=== PATIENT | male | born 1955 | race African-American/Black ===

== ENCOUNTER 2018-09-21 14:33 | Inpatient (IN) | payer OTHER ==
[~2018-09-21] VITALS: Ht 185.4 cm; Wt 91.3 kg
[~2018-09-21 14:33] MED LIST: AMOX-291 PO; ASPI-515 PO; Amlodipine Besylate PO; FAMO20TA7 PO; HYDR-3240 PO; LISI-170 PO; OXYC-302 PO
--- NOTE | 2018-09-21 14:44 | NUR ---
12 lead EKG in progress. Connected to cardiac nurse specialist. Pt in hospital gown.
--- NOTE | 2018-09-21 14:44 | NUR ---
pt is also complaining of "spontaneous laceration around the scrotal area"; 250 ml fluids administered by [facility]
--- NOTE | 2018-09-21 14:58 | NUR ---
DR VELÁZQUEZ BS FOR EXAM. OPEN SORES TO ANTERIOR TESTICLE, THREE LESIONS ACROSS LT UPPER ABD, PEDAL EDEMA BILAT, RT PEDAL PULSE STRONG & REG, LT PEDAL PULSE DIMINISHED, FEET DIRTY & ODOROUS - LAST WASHED "ABOUT A WEEK AGO". PT STATES HE HAS "NEW" BOOTS AND WAS TOLD TO WEAR THEM BAREFOOTED. MONITOR: SINUS TACH. EMS IV 18G RAC. PT A&OX3, RESP EVEN & UNLABORED, SPEECH CLEAR (MISSING FRONT TEETH UPPER & LOWER JAW), SKIN W/D.
[2018-09-21] MEDS ORDERED: MORPHINE SULFATE 4 MG/ML, 1ML IVPush PRN (15:00)
[2018-09-21] MEDS ORDERED: PIPERACILLIN/TAZO/PMX 3.375GM 50 ML IVPB ONE (15:00)
[2018-09-21] MEDS ORDERED: KETOROLAC 30 MG/1 ML IVPush ONE (15:00)
[2018-09-21] MEDS ORDERED: ACETAMINOPHEN 500 MG TABLET PO ONE (15:00)
[2018-09-21] MEDS ORDERED: ONDANSETRON 2MG/ML, 2ML IVPush ONE (15:00)
[2018-09-21] MEDS ORDERED: SODIUM CHLORIDE 0.9% 1,000ML IVBOLUS ONE (15:00)
[2018-09-21] MEDS ORDERED: ONDANSETRON 2MG/ML, 2ML ONE (15:13)
[2018-09-21] MEDS ORDERED: KETOROLAC 30 MG/1 ML ONE (15:13)
[2018-09-21] MEDS ORDERED: PIPERACILLIN/TAZO/PMX 3.375GM 50 ML ONE (15:13)
[2018-09-21] MEDS ORDERED: MORPHINE SULFATE 4 MG/ML, 1ML ONE (15:14)
[2018-09-21] MEDS ORDERED: ACETAMINOPHEN 500 MG TABLET ONE (15:14)
--- NOTE | 2018-09-21 15:32 | NUR ---
LABS, INCLUDING BLD CX SET X 2, DRAWN; BLD CX BAND ON WRIST.
[2018-09-21 15:37] LABS: BASOPHILS # (AUTO) 0.01 x10^3/uL (0-0.1); BASOPHILS % (AUTO) 0 % (0-1); EOSINOPHILS % (AUTO) 0 % (1-7); LYMPHOCYTES # (AUTO) 0.78 x10^3/uL (1-3.4); LYMPHOCYTES % (AUTO) 6 % (22-44); MD NO; MEAN CORPUSCULAR HEMOGLOBIN 30.4 pg (27.5-34.5); MEAN CORPUSCULAR HGB CONC 33.6 g/dL (33.2-36.2); MEAN CORPUSCULAR VOLUME 90.3 fL (81-97); MEAN PLATELET VOLUME 7.9 fL (7.4-10.4); MONOCYTES % (AUTO) 8 % (2-9); NEUTROPHILS # (AUTO) 12.06 x10^3/uL (1.8-6.8); NEUTROPHILS % (AUTO) 87 % (42-75); PLATELET COUNT 143 x10^3/uL (130-400); RED BLOOD COUNT 3.79 x10^6/uL (4.38-5.82); RED CELL DISTRIBUTION WIDTH 15.8 % (9.4-14.8)
--- NOTE | 2018-09-21 15:45 | NUR ---
PT NOTIFIED OF NEED FOR URINE SPECIMEN; URINAL PROVIDED. ZOSYN INFUSING VIA PUMP AT 100ML/HR PER EMAR; NS BOLUS INFUSING W-O; IV SITE PATENT. PT SITTING QUIETLY ON BED W/ SIDE RAILS UP X 2, CALL LIGHT W/IN REACH.
[2018-09-21 15:48] LABS: ALANINE AMINOTRANSFERASE 16 U/L (12-78); ALBUMIN 2.9 g/dL (3.4-5.0); ANION GAP 8 mmol/L (5-15); CALCIUM 8.9 mg/dL (8.5-10.1); CHLORIDE 105 mmol/L (98-107); CREATININE 1.03 mg/dL (0.7-1.3)
[2018-09-21 15:52] LABS: ALKALINE PHOSPHATASE 88 U/L (45-117); BILIRUBIN,TOTAL 0.8 mg/dL (0.2-1.0); TOTAL PROTEIN 8.1 g/dL (6.4-8.2)
--- NOTE | 2018-09-21 16:19 | NUR ---
FIRST NS 100ML INFUSED; 2ND LITER HUNG, INFUSING W-O; IV SITE PATENT. PT RESTING QUIETLY, MONITORING CONTINUES: SINUS TACH AT 115
[2018-09-21] MEDS ORDERED: SODIUM CHLORIDE 0.9% 1,000 ML IV ONE (16:29)
[2018-09-21] MEDS ORDERED: SODIUM CHLORIDE FLUSH 10ML SYR IVF PRN (16:30)
[2018-09-21 16:32] LABS: MICROSCOPIC INDICATED
[2018-09-21 16:48] LABS: CULTURE INDICATED? NO
[2018-09-21 16:59] LABS: RAPID INFLUENZA A Negative (Negative); RAPID INFLUENZA B Negative (Negative)
[2018-09-21] MEDS ORDERED: ONDANSETRON ODT 4 MG PO PRN (17:00)
[2018-09-21] MEDS ORDERED: LABETALOL 5MG/ML, 20ML IV PRN (17:00)
[2018-09-21] MEDS ORDERED: ONDANSETRON 2MG/ML, 2ML IVPush PRN (17:00)
[2018-09-21] MEDS ORDERED: VANCOMYCIN PER PHARMACY MC PRN (17:00)
[2018-09-21] MEDS ORDERED: POLYETHYLENE GLYCOL 17 GM PACKET PO PRN (17:00)
[2018-09-21 17:18] LABS: FREE T4 (FREE THYROXINE) 1.42 ng/dL (0.76-1.46)
[2018-09-21 17:22] LABS: HCT (SEDRATE) 34.3 % (39.2-51.8)
--- NOTE | 2018-09-21 17:36 | NUR ---
PT REPORT TO PARISH MARTIN FOR ROOM 528
[2018-09-21] MEDS ORDERED: PHARMACOKINETIC CONSULTATION MC ONE (18:00)
[2018-09-21] MEDS ORDERED: PIPERACILLIN/TAZO/PMX 3.375GM 50 ML IV SCH ×2 (18:00→22:00)
[2018-09-21] MEDS ORDERED: PHARMACOKINETIC MONITORING MC PRN (18:00)
[2018-09-21] MEDS: SODIUM CHLORIDE 0.9% 1,000 ML IV SCH (18:41)
[2018-09-21 18:42] VITALS: BP 144/75
[2018-09-21] MEDS: VANCOMYCIN 1,500 MG in SODIUM CHLORIDE 0.9% 250 ML IV SCH (18:42)
[2018-09-21 20:50] VITALS: BP 157/78
[2018-09-21] MEDS: PIPERACILLIN/TAZO 3.375 GM in DEXTROSE 5% 50 ML IV SCH (22:41)
[2018-09-21 22:48] LABS: MICROSCOPIC INDICATED
[2018-09-21] MEDS ORDERED: ALBUTEROL SULFATE 2.5 MG/3 ML NPPB PRN (23:00)
[2018-09-22 01:58] VITALS: BP 132/64
[2018-09-22] MEDS: ACETAMINOPHEN 325 MG TABLET PO PRN ×3 (02:13→19:21)
[2018-09-22] MEDS ORDERED: ACETAMINOPHEN 325 MG TABLET PO ONE (04:00)
[2018-09-22 04:13] LABS: CLOSTRIDIUM DIFFICILE ANTIGEN NEGATIVE; CLOSTRIDIUM DIFFICILE TOXIN NEGATIVE (Negative)
[2018-09-22] MEDS: PIPERACILLIN/TAZO 3.375 GM in DEXTROSE 5% 50 ML IV SCH ×4 (04:19→22:30)
[2018-09-22 05:16] LABS: MEAN CORPUSCULAR HEMOGLOBIN 30.8 pg (27.5-34.5); MEAN CORPUSCULAR HGB CONC 34.4 g/dL (33.2-36.2); MEAN CORPUSCULAR VOLUME 89.3 fL (81-97); MEAN PLATELET VOLUME 8.3 fL (7.4-10.4); PLATELET COUNT 129 x10^3/uL (130-400); RED BLOOD COUNT 3.15 x10^6/uL (4.38-5.82); RED CELL DISTRIBUTION WIDTH 15.3 % (9.4-14.8)
[2018-09-22 05:24] LABS: ALANINE AMINOTRANSFERASE 11 U/L (12-78); ALBUMIN 2.1 g/dL (3.4-5.0); ANION GAP 7 mmol/L (5-15); CALCIUM 7.9 mg/dL (8.5-10.1); CHLORIDE 109 mmol/L (98-107); CREATININE 0.94 mg/dL (0.7-1.3)
[2018-09-22 05:48] LABS: ALKALINE PHOSPHATASE 62 U/L (45-117); CHOL/HDL RATIO 3.4; CHOLESTEROL, TOTAL 78 mg/dL (140-239); HDL CHOL % 29 % (26-37); HDL CHOLESTEROL (DIRECT) 23 mg/dL (40-60); LDL CHOLESTEROL,CALCULATED 36 mg/dL (54-169); LDL/HDL RATIO 1.6 (0.5-3.0); TOTAL PROTEIN 6.1 g/dL (6.4-8.2); TRIGLYCERIDES 96 mg/dL (50-200); VLDL CHOLESTEROL 19 mg/dL (0-25)
[2018-09-22 06:00] LABS: BASOPHILS # (AUTO) 0.02 x10^3/uL (0-0.1); BASOPHILS % (AUTO) 0 % (0-1); EOSINOPHILS # (AUTO) 0.04 x10^3/uL (0-0.4); EOSINOPHILS % (AUTO) 0 % (1-7); LYMPHOCYTES # (AUTO) 0.63 x10^3/uL (1-3.4); LYMPHOCYTES % (AUTO) 6 % (22-44); MD SCAN; MONOCYTES # (AUTO) 0.61 x10^3/uL (0.2-0.8); MONOCYTES % (AUTO) 6 % (2-9); NEUTROPHILS # (AUTO) 9.41 x10^3/uL (1.8-6.8); NEUTROPHILS % (AUTO) 88 % (42-75)
[2018-09-22] MEDS: VANCOMYCIN 1,500 MG in SODIUM CHLORIDE 0.9% 250 ML IV SCH ×2 (06:12→19:15)
[2018-09-22 08:27] VITALS: BP 124/61
[2018-09-22] MEDS: SENNA/DOCUSATE TABLET PO SCH (09:00)
[2018-09-22] MEDS ORDERED: POTASSIUM CHLORIDE 20 MEQ TAB.ER.PRT PO ONE ×2 (09:30→13:30)
[2018-09-22] MEDS: SODIUM CHLORIDE 0.9% 1,000 ML IV SCH ×2 (09:47→19:18)
[2018-09-22 15:13] VITALS: BP_SYST 124; BP_SYST 145; BP_DIAS 69; BP_DIAS 84
[2018-09-22 22:05] VITALS: BP 132/70
[2018-09-23 03:12] VITALS: BP 124/67
[2018-09-23] MEDS: PIPERACILLIN/TAZO 3.375 GM in DEXTROSE 5% 50 ML IV SCH ×4 (04:35→22:30)
[2018-09-23] MEDS: VANCOMYCIN 1,500 MG in SODIUM CHLORIDE 0.9% 250 ML IV SCH ×2 (06:52→18:01)
[2018-09-23] MEDS: SODIUM CHLORIDE 0.9% 1,000 ML IV SCH ×2 (06:55→20:58)
[2018-09-23 07:38] VITALS: BP 150/78
[2018-09-23 08:24] LABS: MEAN CORPUSCULAR HEMOGLOBIN 29.2 pg (27.5-34.5); MEAN CORPUSCULAR HGB CONC 32.4 g/dL (33.2-36.2); MEAN CORPUSCULAR VOLUME 90.2 fL (81-97); MEAN PLATELET VOLUME 8.7 fL (7.4-10.4); PLATELET COUNT 158 x10^3/uL (130-400); RED BLOOD COUNT 3.38 x10^6/uL (4.38-5.82); RED CELL DISTRIBUTION WIDTH 16.2 % (9.4-14.8)
[2018-09-23 08:40] LABS: ALANINE AMINOTRANSFERASE 10 U/L (12-78); ALBUMIN 1.9 g/dL (3.4-5.0); ANION GAP 10 mmol/L (5-15); CHLORIDE 111 mmol/L (98-107)
[2018-09-23 08:43] LABS: ALKALINE PHOSPHATASE 74 U/L (45-117); BILIRUBIN,TOTAL 0.7 mg/dL (0.2-1.0); CREATININE 0.79 mg/dL (0.7-1.3); TOTAL PROTEIN 6.3 g/dL (6.4-8.2)
[2018-09-23 08:59] LABS: MD YES
[2018-09-23 09:00] LABS: BANDS%(MANUAL) 8 % (0-7); EOS#(MANUAL) 0.28 x10^3/uL (0.0-0.4); EOS% (MANUAL) 2 % (1-7); LYMPH#(MANUAL) 1.79 x10^3/uL (1-3.4); LYMPHS% (MANUAL) 13 % (22-44); MONOS#(MANUAL) 0.97 x10^3/uL (0.3-2.7); MONOS% (MANUAL) 7 % (2-9); SEG#(MANUAL) 9.66 x10^3/uL (1.8-6.8); SEGS% (MANUAL) 70 % (42-75)
[2018-09-23] MEDS: SENNA/DOCUSATE TABLET PO SCH (09:00)
[2018-09-23 09:02] LABS: ANISOCYTOSIS 1+; HYPOCHROMIA 1+
[2018-09-23 09:03] LABS: <PLATELET ESTIMATE> ADEQUATE; <PLT MORPHOLOGY> NORMAL PLT MORPH
[2018-09-23] MEDS: ENOXAPARIN 40 MG/0.4 ML SQ SCH (10:45)
[2018-09-23 13:41] VITALS: BP 153/79
[2018-09-23] MEDS ORDERED: BISACODYL 5 MG EC TABLET PO PRN (16:30)
[2018-09-23 19:16] VITALS: BP 158/79
[2018-09-24 01:07] VITALS: BP 150/71
[2018-09-24] MEDS: PIPERACILLIN/TAZO 3.375 GM in DEXTROSE 5% 50 ML IV SCH ×3 (04:40→16:28)
[2018-09-24] MEDS: VANCOMYCIN 1,500 MG in SODIUM CHLORIDE 0.9% 250 ML IV SCH (05:55)
[2018-09-24 07:37] VITALS: BP 172/84
[2018-09-24] MEDS ORDERED: MAGNESIUM SULFATE PMX 2GM/50ML 50 ML IV ONE (08:30)
[2018-09-24] MEDS ORDERED: POTASSIUM CHLORIDE 20 MEQ TAB.ER.PRT PO ONE (08:30)
[2018-09-24] MEDS: SENNA/DOCUSATE TABLET PO SCH (09:00)
[2018-09-24] MEDS: ENOXAPARIN 40 MG/0.4 ML SQ SCH (09:59)
[2018-09-24] MEDS: SODIUM CHLORIDE 0.9% 1,000 ML IV SCH ×2 (09:59→18:19)
[2018-09-24] MEDS: POTASSIUM CHLORIDE 20 MEQ TAB.ER.PRT PO SCH ×2 (11:00→16:30)
[2018-09-24 14:01] VITALS: BP 170/88
[2018-09-24 19:29] VITALS: BP 175/94
[2018-09-24] MEDS ORDERED: ACETAMINOPHEN 325 MG TABLET PO PRN (20:30)
[2018-09-24] MEDS: PIPERACILLIN/TAZO/PMX 3.375GM 50 ML IV SCH (23:05)
[2018-09-25 01:36] VITALS: BP 173/86
[2018-09-25] MEDS: SODIUM CHLORIDE 0.9% 1,000 ML IV SCH (02:47)
[2018-09-25] MEDS: PIPERACILLIN/TAZO/PMX 3.375GM 50 ML IV SCH ×2 (04:29→10:48)
[2018-09-25 04:35] LABS: MEAN CORPUSCULAR HGB CONC 33.5 g/dL (33.2-36.2); MEAN CORPUSCULAR VOLUME 89.7 fL (81-97); MEAN PLATELET VOLUME 8.3 fL (7.4-10.4); PLATELET COUNT 269 x10^3/uL (130-400); RED BLOOD COUNT 3.48 x10^6/uL (4.38-5.82); RED CELL DISTRIBUTION WIDTH 15.5 % (9.4-14.8)
[2018-09-25 04:44] LABS: CALCIUM 7.9 mg/dL (8.5-10.1); CHLORIDE 109 mmol/L (98-107)
[2018-09-25 04:48] LABS: MD YES
[2018-09-25 04:49] LABS: ALANINE AMINOTRANSFERASE 10 U/L (12-78); ALBUMIN 1.8 g/dL (3.4-5.0); ALKALINE PHOSPHATASE 71 U/L (45-117); ANION GAP 8 mmol/L (5-15); BILIRUBIN,TOTAL 1.5 mg/dL (0.2-1.0); CREATININE 0.55 mg/dL (0.7-1.3); TOTAL PROTEIN 6.4 g/dL (6.4-8.2)
[2018-09-25 04:50] LABS: <PLATELET ESTIMATE> ADEQUATE; <PLT MORPHOLOGY> NORMAL PLT MORPH; ANISOCYTOSIS 1+; BAND#(MANUAL) 0.37 x10^3/uL; BANDS%(MANUAL) 3 % (0-7); LYMPH#(MANUAL) 1.24 x10^3/uL (1-3.4); LYMPHS% (MANUAL) 10 % (22-44); MONOS#(MANUAL) 0.25 x10^3/uL (0.3-2.7); MONOS% (MANUAL) 2 % (2-9); SEG#(MANUAL) 10.54 x10^3/uL (1.8-6.8); SEGS% (MANUAL) 85 % (42-75)
[2018-09-25 07:00] VITALS: BP 171/90
[2018-09-25] MEDS ORDERED: MAGNESIUM SULFATE PMX 2GM/50ML 50 ML IV ONE (07:30)
[2018-09-25] MEDS ORDERED: MAGNESIUM CITRATE 300ML ORAL SOL PO ONE (07:30)
[2018-09-25] MEDS: SENNA/DOCUSATE TABLET PO SCH (07:55)
[2018-09-25] MEDS: POTASSIUM CHLORIDE 20 MEQ TAB.ER.PRT PO SCH ×2 (08:04→18:11)
[2018-09-25] MEDS: LISINOPRIL 20 MG TABLET PO SCH (08:04)
[2018-09-25] MEDS: CHLORTHALIDONE 25 MG TABLET PO SCH (08:04)
[2018-09-25] MEDS ORDERED: FUROSEMIDE 20 MG/2 ML IV ONE (10:30)
[2018-09-25] MEDS: HYDROcodone/APAP 5/325 TABLET PO PRN ×2 (10:48→18:11)
[2018-09-25] MEDS: ENOXAPARIN 40 MG/0.4 ML SQ SCH (10:49)
[2018-09-25] MEDS: CEFAZOLIN PMX 2GM/50ML 50 ML IVPB SCH ×2 (12:59→20:31)
[2018-09-25 14:10] VITALS: BP 133/77
[2018-09-25 19:15] VITALS: BP 160/82
[2018-09-26 01:49] VITALS: BP 147/82
[2018-09-26 04:42] LABS: ALBUMIN 1.8 g/dL (3.4-5.0); ANION GAP 3 mmol/L (5-15); CALCIUM 7.9 mg/dL (8.5-10.1); CHLORIDE 106 mmol/L (98-107); MEAN CORPUSCULAR HEMOGLOBIN 28.7 pg (27.5-34.5); MEAN CORPUSCULAR HGB CONC 31.7 g/dL (33.2-36.2); MEAN CORPUSCULAR VOLUME 90.5 fL (81-97); MEAN PLATELET VOLUME 8.4 fL (7.4-10.4); PLATELET COUNT 329 x10^3/uL (130-400); RED BLOOD COUNT 3.68 x10^6/uL (4.38-5.82); RED CELL DISTRIBUTION WIDTH 15.4 % (9.4-14.8)
[2018-09-26 04:43] LABS: CREATININE 0.66 mg/dL (0.7-1.3)
[2018-09-26] MEDS: HYDROcodone/APAP 5/325 TABLET PO PRN ×2 (04:43→19:50)
[2018-09-26] MEDS: CEFAZOLIN PMX 2GM/50ML 50 ML IVPB SCH ×3 (04:43→19:49)
[2018-09-26 06:50] LABS: MD YES
[2018-09-26 06:51] LABS: <PLATELET ESTIMATE> ADEQUATE; <PLT MORPHOLOGY> NORMAL PLT MORPH; ANISOCYTOSIS 1+; LYMPH#(MANUAL) 1.21 x10^3/uL (1-3.4); LYMPHS% (MANUAL) 9 % (22-44); MONOS#(MANUAL) 0.94 x10^3/uL (0.3-2.7); MONOS% (MANUAL) 7 % (2-9); SEG#(MANUAL) 11.26 x10^3/uL (1.8-6.8); SEGS% (MANUAL) 84 % (42-75)
[2018-09-26 06:53] LABS: POLYCHROMASIA 1+
[2018-09-26 07:20] VITALS: BP 151/76
[2018-09-26] MEDS ORDERED: MAGNESIUM SULFATE 4 GM in SODIUM CHLORIDE 0.9% 100 ML IV ONE (09:00)
[2018-09-26] MEDS: POTASSIUM CHLORIDE 20 MEQ TAB.ER.PRT PO SCH ×2 (09:14→17:25)
[2018-09-26] MEDS: SENNA/DOCUSATE TABLET PO SCH (09:15)
[2018-09-26] MEDS: CHLORTHALIDONE 25 MG TABLET PO SCH (09:15)
[2018-09-26] MEDS: LISINOPRIL 20 MG TABLET PO SCH (09:15)
[2018-09-26 09:16] VITALS: BP 146/78
[2018-09-26] MEDS ORDERED: CHLO25TA PO (11:03)
[2018-09-26] MEDS ORDERED: CEPH-368 PO (11:03)
[2018-09-26] MEDS ORDERED: LISI-170 PO (11:03)
[2018-09-26] MEDS: ENOXAPARIN 40 MG/0.4 ML SQ SCH (11:12)
[2018-09-26 14:35] VITALS: BP 164/80
[2018-09-26 21:13] VITALS: BP 156/86
[2018-09-27 01:24] VITALS: BP 157/86
[2018-09-27] MEDS: CEFAZOLIN PMX 2GM/50ML 50 ML IVPB SCH ×2 (04:22→12:30)
[2018-09-27 07:21] VITALS: BP 155/89
[2018-09-27 09:52] LABS: ANION GAP 9 mmol/L (5-15); CALCIUM 8.7 mg/dL (8.5-10.1); CHLORIDE 106 mmol/L (98-107)
[2018-09-27 09:54] LABS: ALANINE AMINOTRANSFERASE 8 U/L (12-78); ALKALINE PHOSPHATASE 63 U/L (45-117); BILIRUBIN,TOTAL 0.3 mg/dL (0.2-1.0); CREATININE 0.76 mg/dL (0.7-1.3); TOTAL PROTEIN 7.3 g/dL (6.4-8.2)
[2018-09-27 10:04] LABS: MEAN CORPUSCULAR HEMOGLOBIN 29.3 pg (27.5-34.5); MEAN CORPUSCULAR HGB CONC 32.6 g/dL (33.2-36.2); MEAN PLATELET VOLUME 8.1 fL (7.4-10.4); PLATELET COUNT 437 x10^3/uL (130-400); RED BLOOD COUNT 3.64 x10^6/uL (4.38-5.82); RED CELL DISTRIBUTION WIDTH 15.5 % (9.4-14.8)
[2018-09-27] MEDS: ENOXAPARIN 40 MG/0.4 ML SQ SCH (10:18)
[2018-09-27] MEDS: LISINOPRIL 20 MG TABLET PO SCH (10:18)
[2018-09-27] MEDS: HYDROcodone/APAP 5/325 TABLET PO PRN (10:18)
[2018-09-27] MEDS: CHLORTHALIDONE 25 MG TABLET PO SCH (10:18)
[2018-09-27] MEDS: SENNA/DOCUSATE TABLET PO SCH (10:18)
[2018-09-27] MEDS: POTASSIUM CHLORIDE 20 MEQ TAB.ER.PRT PO SCH (10:18)
[2018-09-27 10:37] LABS: BASOPHILS % (AUTO) 0 % (0-1); EOSINOPHILS # (AUTO) 0.16 x10^3/uL (0-0.4); EOSINOPHILS % (AUTO) 2 % (1-7); LYMPHOCYTES # (AUTO) 0.88 x10^3/uL (1-3.4); LYMPHOCYTES % (AUTO) 10 % (22-44); MD SCAN; MONOCYTES # (AUTO) 0.35 x10^3/uL (0.2-0.8); MONOCYTES % (AUTO) 4 % (2-9); NEUTROPHILS # (AUTO) 7.65 x10^3/uL (1.8-6.8); NEUTROPHILS % (AUTO) 85 % (42-75)
[2018-09-27 13:20] VITALS: BP 144/76
== END 2018-09-27 14:18 | disposition home health service (06) | DRG 871 ==
LOC: ED 15:55 → EDIP 16:29 → 5SO 17:24 → 3NW 09-24 17:45
PROVIDERS: ADMIT Hospitalist; ATTEND Hospitalist
DX: A41.9 Sepsis, unspecified organism (principal); E43 Unspecified severe protein-calorie malnutrition; L03.115 Cellulitis of right lower limb; E87.1 Hypo-osmolality and hyponatremia; L03.116 Cellulitis of left lower limb; Z68.26 Body mass index [BMI] 26.0-26.9, adult; D64.9 Anemia, unspecified; E87.6 Hypokalemia; F10.10 Alcohol abuse, uncomplicated; M19.90 Unspecified osteoarthritis, unspecified site; M54.30 Sciatica, unspecified side; F12.90 Cannabis use, unspecified, uncomplicated; F17.210 Nicotine dependence, cigarettes, uncomplicated; I10 Essential (primary) hypertension; I86.1 Scrotal varices; N50.89 Other specified disorders of the male genital organs; Z59.0 Homelessness; Z23 Encounter for immunization
CPT/HCPCS: 36415; 71045; 71260; 74177; 76700; 76870; 80048; 80053; 80061; 80202; 81001; 82040; 83605; 83690; 83735; 83880; 84100; 84145; 84439; 84484; 85025; 85651; 86140; 87040; 87070; 87077; 87147; 87186; 87205; 87324; 87400; 90656; 93005; 93306; 93922; 93970; 96365; 96375; G0378; J0690; J1650; J1885; J2405; J2543; J3370; J3475; J1940; J7030; J7050

== ENCOUNTER 2019-02-20 23:45 | Inpatient (IN) | payer MEDICAID ==
[~2019-02-20] VITALS: Ht 185.4 cm; Wt 84.0 kg
[~2019-02-20 23:45] MED LIST changes: +CEPH-368 PO; +CHLO25TA PO
--- NOTE | 2019-02-20 23:58 | NUR ---
Pt ambulated to room with EDT. Pt changing into gown.
[2019-02-21] MEDS ORDERED: ONDANSETRON 2MG/ML, 2ML IVPush ONE
[2019-02-21] MEDS ORDERED: SODIUM CHLORIDE FLUSH 10ML SYR IVF ONE
[2019-02-21] MEDS ORDERED: MORPHINE SULFATE 4 MG/ML, 1ML IVPush PRN
[2019-02-21] MEDS ORDERED: SODIUM CHLORIDE 0.9% 1,000ML IVBOLUS ONE
--- NOTE | 2019-02-21 00:20 | NUR ---
Dr. Briones at bedside to evaluate pt. Labs being drawn.
[2019-02-21] MEDS ORDERED: VANCOMYCIN PER PHARMACY MC PRN ×2 (00:30→07:00)
[2019-02-21] MEDS ORDERED: AMPICILLIN/SULBACTAM 3 GM in SODIUM CHLORIDE 0.9% 100 ML IV ONE (00:30)
[2019-02-21] MEDS ORDERED: ONDANSETRON 2MG/ML, 2ML ONE (00:33)
[2019-02-21] MEDS ORDERED: MORPHINE SULFATE 4 MG/ML, 1ML ONE (00:33)
[2019-02-21 00:37] LABS: MEAN CORPUSCULAR HEMOGLOBIN 30.6 pg (27.5-34.5); MEAN CORPUSCULAR HGB CONC 32.4 g/dL (33.2-36.2); MEAN CORPUSCULAR VOLUME 94.4 fL (81-97); MEAN PLATELET VOLUME 6.8 fL (7.4-10.4); PLATELET COUNT 650 x10^3/uL (130-400); RED BLOOD COUNT 3.47 x10^6/uL (4.38-5.82); RED CELL DISTRIBUTION WIDTH 18.8 % (9.4-14.8)
[2019-02-21 00:49] LABS: INTERNATIONAL NORMALIZED RATIO 1.13 (0.93-1.1); PROTHROMBIN TIME 11.8 Seconds (9.6-11.5)
[2019-02-21 00:51] LABS: ALANINE AMINOTRANSFERASE 15 U/L (12-78); ALBUMIN 2.3 g/dL (3.4-5.0); ANION GAP 8 mmol/L (5-15); CALCIUM 8.6 mg/dL (8.5-10.1); CHLORIDE 103 mmol/L (98-107); CREATININE 0.86 mg/dL (0.7-1.3)
[2019-02-21 00:54] LABS: ALKALINE PHOSPHATASE 78 U/L (45-117); BILIRUBIN,TOTAL 0.1 mg/dL (0.2-1.0); TOTAL PROTEIN 9.2 g/dL (6.4-8.2)
[2019-02-21 00:59] LABS: BASOPHILS # (AUTO) 0.06 x10^3/uL (0-0.1); BASOPHILS % (AUTO) 0 % (0-1); EOSINOPHILS # (AUTO) 0.46 x10^3/uL (0-0.4); EOSINOPHILS % (AUTO) 3 % (1-7); LYMPHOCYTES % (AUTO) 12 % (22-44); MD SCAN; MONOCYTES # (AUTO) 0.81 x10^3/uL (0.2-0.8); MONOCYTES % (AUTO) 5 % (2-9); NEUTROPHILS # (AUTO) 12.11 x10^3/uL (1.8-6.8); NEUTROPHILS % (AUTO) 79 % (42-75)
[2019-02-21] MEDS ORDERED: VANCOMYCIN 1,700 MG in SODIUM CHLORIDE 0.9% 250 ML IV ONE (01:00)
--- NOTE | 2019-02-21 01:00 | NUR ---
Pharmacy slip sent for abx.
--- NOTE | 2019-02-21 01:35 | NUR ---
REPORT RECEIVED FROM PARISH WELCH. ASSUMED CARE OF PT
--- NOTE | 2019-02-21 01:43 | NUR ---
Telephone SBAR report given to RNAllan. Pt made aware of new room assignment.
[2019-02-21 03:49] VITALS: BP 139/71
[2019-02-21] MEDS ORDERED: ONDANSETRON 2MG/ML, 2ML IVPush PRN (07:00)
[2019-02-21] MEDS ORDERED: PHARMACOKINETIC CONSULTATION MC ONE (07:00)
[2019-02-21] MEDS ORDERED: hydrALAzine 20 MG/ML, 1ML IVPush PRN (07:00)
[2019-02-21] MEDS ORDERED: morphine SULFATE 10 MG/ML, 1ML IVPush PRN (07:00)
[2019-02-21] MEDS: LACTATED RINGERS 1,000 ML IV SCH ×3 (07:00→20:20)
[2019-02-21] MEDS ORDERED: ACETAMINOPHEN 325 MG TABLET PO PRN (07:00)
[2019-02-21] MEDS ORDERED: PHARMACOKINETIC MONITORING MC PRN (07:00)
[2019-02-21] MEDS ORDERED: POTASSIUM CHLORIDE 20 MEQ, MAGNESIUM SULFATE 2 GM, THIAMINE 200 MG, MVI ADULT 10 ML, FO... IV SCH ×2 (07:14→14:00)
[2019-02-21 08:00] VITALS: BP 132/59
[2019-02-21] MEDS: AMPICILLIN/SULBACTAM 3 GM in SODIUM CHLORIDE 0.9% 100 ML IV SCH ×2 (08:48→13:00)
[2019-02-21] MEDS ORDERED: CHLORTHALIDONE 25 MG TABLET PO SCH (09:00)
[2019-02-21 09:05] LABS: C-REACTIVE PROTEIN, QUANT 9.4 mg/dL (0.02-0.49)
[2019-02-21 09:21] LABS: HCT (SEDRATE) 26.8 % (39.2-51.8)
[2019-02-21 11:44] LABS: CREATININE 0.66 mg/dL (0.7-1.3)
[2019-02-21] MEDS: LISINOPRIL 20 MG TABLET PO SCH (13:33)
[2019-02-21 14:00] VITALS: BP 117/59
[2019-02-21 17:21] LABS: AMPHETAMINE SCREEN, URINE Negative (Negative); BARBITURATE SCREEN, URINE Negative (Negative); BENZODIAZEPINE SCREEN, URINE Negative (Negative); CANNABINOID SCREEN, URINE Positive (Negative); COCAINE SCREEN, URINE Negative (Negative); METHADONE SCREEN, URINE Negative (Negative); OPIATE SCREEN, URINE Positive (Negative)
[2019-02-21] MEDS: VANCOMYCIN 1,700 MG in SODIUM CHLORIDE 0.9% 250 ML IV SCH (17:57)
[2019-02-21 21:21] VITALS: BP 126/69
[2019-02-21] MEDS: OXYcodone/APAP 5/325MG TABLET PO PRN (21:22)
[2019-02-22] MEDS: AMPICILLIN/SULBACTAM 3 GM in SODIUM CHLORIDE 0.9% 100 ML IV SCH ×4 (00:52→23:46)
[2019-02-22 00:58] VITALS: BP 120/71
[2019-02-22] MEDS: LACTATED RINGERS 1,000 ML IV SCH (03:00)
[2019-02-22 05:23] LABS: BASOPHILS # (AUTO) 0.04 x10^3/uL (0-0.1); BASOPHILS % (AUTO) 0 % (0-1); EOSINOPHILS # (AUTO) 0.53 x10^3/uL (0-0.4); EOSINOPHILS % (AUTO) 5 % (1-7); LYMPHOCYTES # (AUTO) 2.15 x10^3/uL (1-3.4); LYMPHOCYTES % (AUTO) 19 % (22-44); MD NO; MEAN CORPUSCULAR HEMOGLOBIN 30.5 pg (27.5-34.5); MEAN CORPUSCULAR HGB CONC 32.5 g/dL (33.2-36.2); MEAN CORPUSCULAR VOLUME 93.9 fL (81-97); MEAN PLATELET VOLUME 6.4 fL (7.4-10.4); MONOCYTES # (AUTO) 1.09 x10^3/uL (0.2-0.8); MONOCYTES % (AUTO) 10 % (2-9); NEUTROPHILS % (AUTO) 66 % (42-75); PLATELET COUNT 500 x10^3/uL (130-400); RED BLOOD COUNT 2.67 x10^6/uL (4.38-5.82); RED CELL DISTRIBUTION WIDTH 18.9 % (9.4-14.8)
[2019-02-22 05:32] LABS: ANION GAP 4 mmol/L (5-15); CHLORIDE 108 mmol/L (98-107)
[2019-02-22 05:37] LABS: CHOL/HDL RATIO 2.4; CHOLESTEROL, TOTAL 82 mg/dL (140-239); CREATININE 0.56 mg/dL (0.7-1.3); HDL CHOL % 41 % (26-37); HDL CHOLESTEROL (DIRECT) 34 mg/dL (40-60); LDL CHOLESTEROL,CALCULATED 34 mg/dL (54-169); TRIGLYCERIDES 69 mg/dL (50-200); VLDL CHOLESTEROL 14 mg/dL (0-25)
[2019-02-22] MEDS: VANCOMYCIN 1,700 MG in SODIUM CHLORIDE 0.9% 250 ML IV SCH ×2 (05:40→16:56)
[2019-02-22] MEDS: OXYcodone/APAP 5/325MG TABLET PO PRN (05:40)
[2019-02-22] MEDS ORDERED: ACETAMINOPHEN 325 MG TABLET PO PRN ×2 (07:30→22:30)
[2019-02-22] MEDS: HEPARIN 5,000 UNITS/ML, 1ML SQ SCH ×3 (07:30→23:30)
[2019-02-22 09:13] VITALS: BP 153/89
[2019-02-22] MEDS: LISINOPRIL 20 MG TABLET PO SCH (09:18)
[2019-02-22] MEDS ORDERED: OXYcodone IR 5MG TABLET ONE (09:29)
[2019-02-22] MEDS: OXYcodone IR 5MG TABLET PO PRN ×2 (09:35→17:03)
[2019-02-22 15:06] VITALS: BP 157/81
[2019-02-22 15:10] LABS: RAPID PLASMA REAGIN Nonreactive (Nonreactive)
[2019-02-22] MEDS: PIPERONYL BUTOXIDE/PYRETHRINS SHAMPOO TP SCH (18:16)
[2019-02-22 19:46] VITALS: BP 162/85
[2019-02-22] MEDS ORDERED: FENTANYL PF 100 MCG/2ML ONE ×2 (22:08→23:02)
[2019-02-22] MEDS ORDERED: FENTANYL PF 250 MCG/5ML ONE (22:13)
[2019-02-22] MEDS ORDERED: ONDANSETRON 2MG/ML, 2ML ONE (22:29)
[2019-02-22] MEDS ORDERED: CEFAZOLIN 1,000 MG ONE (22:29)
[2019-02-22] MEDS ORDERED: PROPOFOL 10 MG/ML, 20ML ONE (22:29)
[2019-02-22] MEDS ORDERED: DEXAMETHASONE 4 MG/ML, 1ML ONE (22:29)
[2019-02-22] MEDS ORDERED: MEPERIDINE/PF 25MG/0.5ML IVPush PRN (22:30)
[2019-02-22] MEDS ORDERED: OXYcodone 5 MG/5 ML ORAL.SOL UDC PO PRN (22:30)
[2019-02-22] MEDS ORDERED: DIAZEPAM 5 MG/ML, 2ML IVPush PRN (22:30)
[2019-02-22] MEDS ORDERED: KETOROLAC 30 MG/1 ML IV PRN (22:30)
[2019-02-22] MEDS ORDERED: PROMETHAZINE 25 MG/ML, 1ML IV PRN (22:30)
[2019-02-22] MEDS ORDERED: ALBUTEROL SULFATE 2.5 MG/3 ML NPPB PRN (22:30)
[2019-02-22] MEDS ORDERED: hydrALAzine 20 MG/ML, 1ML IV PRN (22:30)
[2019-02-22] MEDS ORDERED: LABETALOL 5MG/ML, 20ML IV PRN (22:30)
[2019-02-22] MEDS ORDERED: HYDROmorphone 2 MG/ML, 1ML ONE (22:44)
[2019-02-22] MEDS: HYDROmorphone 2 MG/ML, 1ML IVPush PRN ×3 (22:48→23:07)
[2019-02-22] MEDS: FENTANYL PF 100 MCG/2ML IV PRN ×2 (23:03→23:18)
[2019-02-23 02:38] VITALS: BP 107/79
[2019-02-23] MEDS: OXYcodone IR 5MG TABLET PO PRN ×4 (04:32→23:47)
[2019-02-23 05:25] LABS: BASOPHILS # (AUTO) 0.03 x10^3/uL (0-0.1); BASOPHILS % (AUTO) 0 % (0-1); EOSINOPHILS # (AUTO) 0.76 x10^3/uL (0-0.4); EOSINOPHILS % (AUTO) 8 % (1-7); LYMPHOCYTES # (AUTO) 1.36 x10^3/uL (1-3.4); LYMPHOCYTES % (AUTO) 14 % (22-44); MD NO; MEAN CORPUSCULAR HEMOGLOBIN 30.7 pg (27.5-34.5); MEAN CORPUSCULAR HGB CONC 32.8 g/dL (33.2-36.2); MEAN CORPUSCULAR VOLUME 93.6 fL (81-97); MEAN PLATELET VOLUME 6.3 fL (7.4-10.4); MONOCYTES # (AUTO) 0.64 x10^3/uL (0.2-0.8); MONOCYTES % (AUTO) 7 % (2-9); NEUTROPHILS # (AUTO) 6.77 x10^3/uL (1.8-6.8); NEUTROPHILS % (AUTO) 71 % (42-75); PLATELET COUNT 465 x10^3/uL (130-400); RED BLOOD COUNT 2.92 x10^6/uL (4.38-5.82); RED CELL DISTRIBUTION WIDTH 18.3 % (9.4-14.8)
[2019-02-23] MEDS: AMPICILLIN/SULBACTAM 3 GM in SODIUM CHLORIDE 0.9% 100 ML IV SCH ×2 (05:56→12:56)
[2019-02-23 06:26] LABS: % IRON SATURATION 8 % (20-55); IRON LEVEL 15 mcg/dL (65-175); TOTAL IRON BINDING CAPACITY 183 mcg/dL (250-450)
[2019-02-23] MEDS: VANCOMYCIN 1,700 MG in SODIUM CHLORIDE 0.9% 250 ML IV SCH ×2 (06:37→17:22)
[2019-02-23] MEDS ORDERED: LACTATED RINGERS 1,000 ML IV SCH (07:00)
[2019-02-23] MEDS: HEPARIN 5,000 UNITS/ML, 1ML SQ SCH ×3 (07:30→23:30)
[2019-02-23 07:58] VITALS: BP 154/78
[2019-02-23] MEDS ORDERED: SODIUM CHLORIDE 0.9% 1,000 ML IV SCH (08:00)
[2019-02-23] MEDS: LISINOPRIL 20 MG TABLET PO SCH (10:49)
[2019-02-23 12:59] VITALS: BP 138/70
[2019-02-23] MEDS: SODIUM CHLORIDE 0.9% 1,000 ML IV SCH (16:27)
[2019-02-23] MEDS ORDERED: PERMETHRIN CRM 5%, 60GM TP ONE (16:30)
[2019-02-23] MEDS: PIPERACILLIN/TAZO/PMX 3.375GM 50 ML IV SCH ×2 (16:50→22:42)
[2019-02-23 20:00] VITALS: BP 156/75
[2019-02-24 01:32] VITALS: BP 150/75
[2019-02-24] MEDS: SODIUM CHLORIDE 0.9% 1,000 ML IV SCH ×2 (02:58→18:41)
[2019-02-24] MEDS: PIPERACILLIN/TAZO/PMX 3.375GM 50 ML IV SCH ×3 (04:36→19:58)
[2019-02-24] MEDS: VANCOMYCIN 1,700 MG in SODIUM CHLORIDE 0.9% 250 ML IV SCH (05:20)
[2019-02-24] MEDS: OXYcodone IR 5MG TABLET PO PRN (05:28)
[2019-02-24 07:17] VITALS: BP 157/82
[2019-02-24] MEDS: HEPARIN 5,000 UNITS/ML, 1ML SQ SCH ×3 (07:30→22:15)
[2019-02-24] MEDS ORDERED: SODIUM CHLORIDE 0.9% 1,000 ML IV SCH (08:00)
[2019-02-24] MEDS: LISINOPRIL 20 MG TABLET PO SCH (09:19)
[2019-02-24 13:21] VITALS: BP 162/75
[2019-02-24] MEDS ORDERED: FENTANYL PF 250 MCG/5ML ONE (15:50)
[2019-02-24] MEDS ORDERED: MIDAZOLAM 1 MG/ML, 2ML ONE (15:50)
[2019-02-24] MEDS ORDERED: PROPOFOL 10 MG/ML, 20ML ONE ×2 (15:51)
[2019-02-24] MEDS ORDERED: MIDAZOLAM 1 MG/ML, 2ML IV PRN (16:00)
[2019-02-24] MEDS ORDERED: ONDANSETRON 2MG/ML, 2ML IV PRN (16:00)
[2019-02-24] MEDS ORDERED: EPHEDRINE 50 MG/ML, 1ML IM PRN (16:00)
[2019-02-24] MEDS ORDERED: OXYcodone 5 MG/5 ML ORAL.SOL UDC PO PRN ×2 (16:00→18:00)
[2019-02-24] MEDS ORDERED: PROMETHAZINE 25 MG/ML, 1ML IV PRN ×2 (16:00→18:00)
[2019-02-24] MEDS ORDERED: DIAZEPAM 5 MG/ML, 2ML IVPush PRN ×2 (16:00→18:00)
[2019-02-24] MEDS ORDERED: DIPHENHYDRAMINE 50 MG/ML, 1ML IVPush PRN (16:00)
[2019-02-24] MEDS ORDERED: hydrALAzine 20 MG/ML, 1ML IV PRN ×2 (16:00→18:00)
[2019-02-24] MEDS ORDERED: MORPHINE SULFATE 4 MG/ML, 1ML IVPush PRN (16:00)
[2019-02-24] MEDS ORDERED: MEPERIDINE/PF 25MG/0.5ML IVPush PRN ×2 (16:00→18:00)
[2019-02-24] MEDS ORDERED: ALBUTEROL/IPRATROPIUM 2.5MG/0.5MG, 3 ML NPPB PRN (16:00)
[2019-02-24] MEDS ORDERED: FENTANYL PF 100 MCG/2ML IV PRN (16:00)
[2019-02-24] MEDS ORDERED: ONDANSETRON ODT 8 MG PO PRN (16:00)
[2019-02-24] MEDS ORDERED: METOPROLOL 1 MG/ML, 5ML IV PRN (16:00)
[2019-02-24] MEDS ORDERED: EPHEDRINE 50 MG/ML, 1ML IVPush PRN (16:00)
[2019-02-24] MEDS ORDERED: HYDROmorphone 2 MG/ML, 1ML ONE (17:35)
[2019-02-24] MEDS ORDERED: FENTANYL PF 100 MCG/2ML ONE (17:35)
[2019-02-24] MEDS: HYDROmorphone 2 MG/ML, 1ML IVPush PRN ×4 (17:45→18:07)
[2019-02-24] MEDS: FENTANYL PF 100 MCG/2ML IV PRN ×2 (17:52→17:58)
[2019-02-24] MEDS ORDERED: ALBUTEROL SULFATE 2.5 MG/3 ML NPPB PRN (18:00)
[2019-02-24] MEDS ORDERED: ACETAMINOPHEN 325 MG TABLET PO PRN (18:00)
[2019-02-24] MEDS ORDERED: KETOROLAC 30 MG/1 ML IV PRN (18:00)
[2019-02-24] MEDS ORDERED: OXYcodone 5 MG/5 ML ORAL.SOL UDC ONE (18:00)
[2019-02-24] MEDS ORDERED: LABETALOL 5MG/ML, 20ML IV PRN (18:00)
[2019-02-24] MEDS ORDERED: DIPHENHYDRAMINE 50 MG/ML, 1ML ONE (18:09)
[2019-02-24] MEDS: CARVEDILOL 3.125 MG TABLET PO SCH (19:59)
[2019-02-24 20:30] VITALS: BP 128/78
[2019-02-25] MEDS: PIPERACILLIN/TAZO/PMX 3.375GM 50 ML IV SCH ×4 (01:28→20:19)
[2019-02-25 03:00] VITALS: BP 157/83
[2019-02-25] MEDS: CARVEDILOL 3.125 MG TABLET PO SCH ×2 (05:47→17:31)
[2019-02-25] MEDS: HEPARIN 5,000 UNITS/ML, 1ML SQ SCH ×3 (07:30→20:19)
[2019-02-25 07:50] VITALS: BP 159/81
[2019-02-25] MEDS: LISINOPRIL 20 MG TABLET PO SCH (08:44)
[2019-02-25] MEDS: OXYcodone IR 5MG TABLET PO PRN ×3 (08:45→20:19)
[2019-02-25] MEDS: SODIUM CHLORIDE 0.9% 1,000 ML IV SCH (11:48)
[2019-02-25 13:20] VITALS: BP 133/71
[2019-02-25] MEDS: ACETAMINOPHEN 325 MG TABLET PO SCH ×2 (14:42→20:19)
[2019-02-25] MEDS ORDERED: VANCOMYCIN 1,700 MG in SODIUM CHLORIDE 0.9% 250 ML IV SCH (17:00)
[2019-02-25 20:22] VITALS: BP 160/86
[2019-02-26 00:43] VITALS: BP 144/76
[2019-02-26] MEDS: PIPERACILLIN/TAZO/PMX 3.375GM 50 ML IV SCH ×4 (02:00→20:14)
[2019-02-26] MEDS: ACETAMINOPHEN 325 MG TABLET PO SCH ×4 (02:01→20:30)
[2019-02-26] MEDS: OXYcodone IR 5MG TABLET PO PRN ×3 (02:01→20:30)
[2019-02-26] MEDS: SODIUM CHLORIDE 0.9% 1,000 ML IV SCH (05:40)
[2019-02-26] MEDS: CARVEDILOL 3.125 MG TABLET PO SCH (05:40)
[2019-02-26 05:55] LABS: BASOPHILS # (AUTO) 0.04 x10^3/uL (0-0.1); BASOPHILS % (AUTO) 1 % (0-1); EOSINOPHILS # (AUTO) 0.52 x10^3/uL (0-0.4); EOSINOPHILS % (AUTO) 7 % (1-7); LYMPHOCYTES # (AUTO) 1.69 x10^3/uL (1-3.4); LYMPHOCYTES % (AUTO) 23 % (22-44); MD NO; MEAN CORPUSCULAR HEMOGLOBIN 30.1 pg (27.5-34.5); MEAN CORPUSCULAR HGB CONC 32.1 g/dL (33.2-36.2); MEAN CORPUSCULAR VOLUME 93.9 fL (81-97); MEAN PLATELET VOLUME 6.2 fL (7.4-10.4); MONOCYTES # (AUTO) 0.66 x10^3/uL (0.2-0.8); MONOCYTES % (AUTO) 9 % (2-9); NEUTROPHILS % (AUTO) 60 % (42-75); PLATELET COUNT 534 x10^3/uL (130-400); RED BLOOD COUNT 3.16 x10^6/uL (4.38-5.82); RED CELL DISTRIBUTION WIDTH 18.3 % (9.4-14.8)
[2019-02-26 05:58] LABS: CHLORIDE 108 mmol/L (98-107)
[2019-02-26 06:04] LABS: ANION GAP 5 mmol/L (5-15); CALCIUM 8.6 mg/dL (8.5-10.1); CREATININE 0.87 mg/dL (0.7-1.3)
[2019-02-26 07:05] VITALS: BP 163/71
[2019-02-26] MEDS: HEPARIN 5,000 UNITS/ML, 1ML SQ SCH ×3 (07:30→23:30)
[2019-02-26] MEDS: FERROUS SULFATE 325 MG TABLET PO SCH (09:54)
[2019-02-26] MEDS: LISINOPRIL 20 MG TABLET PO SCH (09:55)
[2019-02-26] MEDS: LINEZOLID 600 MG TABLET PO SCH ×2 (11:44→23:48)
[2019-02-26 14:20] VITALS: BP 157/79
[2019-02-26] MEDS ORDERED: MIDAZOLAM 1 MG/ML, 2ML ONE (15:50)
[2019-02-26] MEDS ORDERED: FENTANYL PF 100 MCG/2ML ONE ×2 (15:50→17:29)
[2019-02-26] MEDS ORDERED: MINERAL OIL 10 ML VIAL MC ONE (16:37)
[2019-02-26] MEDS ORDERED: EPINEPHRINE 1 MG/ML, 1ML ONE (16:37)
[2019-02-26] MEDS ORDERED: PROPOFOL 10 MG/ML, 20ML ONE (16:41)
[2019-02-26] MEDS ORDERED: GLYCOPYRROLATE 0.2MG/1ML, 5ML ONE (16:41)
[2019-02-26] MEDS ORDERED: LIDOCAINE 2% 100MG/5ML SYRINGE ONE (16:41)
[2019-02-26] MEDS ORDERED: OXYcodone 5 MG/5 ML ORAL.SOL UDC ONE (17:29)
[2019-02-26] MEDS ORDERED: HYDROmorphone 2 MG/ML, 1ML ONE (17:29)
[2019-02-26] MEDS ORDERED: hydrALAzine 20 MG/ML, 1ML IV PRN (17:30)
[2019-02-26] MEDS ORDERED: OXYcodone 5 MG/5 ML ORAL.SOL UDC PO PRN (17:30)
[2019-02-26] MEDS ORDERED: LORazepam 2 MG/ML, 1ML IVPush PRN (17:30)
[2019-02-26] MEDS ORDERED: ONDANSETRON 2MG/ML, 2ML IV PRN (17:30)
[2019-02-26] MEDS ORDERED: METOCLOPRAMIDE 5 MG/ML, 2ML IV PRN (17:30)
[2019-02-26] MEDS ORDERED: MEPERIDINE/PF 25MG/0.5ML IVPush PRN (17:30)
[2019-02-26] MEDS ORDERED: METOPROLOL 1 MG/ML, 5ML IV PRN (17:30)
[2019-02-26] MEDS ORDERED: LABETALOL 5MG/ML, 20ML IV PRN (17:30)
[2019-02-26] MEDS: HYDROmorphone 2 MG/ML, 1ML IVPush PRN ×4 (17:34→17:55)
[2019-02-26] MEDS: FENTANYL PF 100 MCG/2ML IV PRN ×2 (17:35→17:58)
[2019-02-26] MEDS: CARVEDILOL 6.25 MG TABLET PO SCH (18:20)
[2019-02-26] MEDS ORDERED: hydrALAzine 20 MG/ML, 1ML ONE (19:17)
[2019-02-26 20:13] VITALS: BP 179/95
[2019-02-26] MEDS: hydrALAzine 20 MG/ML, 1ML IV PRN (20:14)
[2019-02-26 23:56] VITALS: BP 151/70
[2019-02-27] MEDS: ACETAMINOPHEN 325 MG TABLET PO SCH ×4 (02:00→21:42)
[2019-02-27] MEDS: PIPERACILLIN/TAZO/PMX 3.375GM 50 ML IV SCH ×4 (02:16→21:42)
[2019-02-27] MEDS: SODIUM CHLORIDE 0.9% 1,000 ML IV SCH (02:16)
[2019-02-27 03:41] VITALS: BP 138/67
[2019-02-27 05:37] VITALS: BP 149/79
[2019-02-27] MEDS: CARVEDILOL 6.25 MG TABLET PO SCH ×2 (05:38→17:30)
[2019-02-27] MEDS: HEPARIN 5,000 UNITS/ML, 1ML SQ SCH ×3 (07:30→23:41)
[2019-02-27 07:35] VITALS: BP 167/81
[2019-02-27] MEDS: LISINOPRIL 20 MG TABLET PO SCH (09:24)
[2019-02-27] MEDS: LINEZOLID 600 MG TABLET PO SCH ×2 (10:54→23:45)
[2019-02-27 12:30] VITALS: BP 159/73
[2019-02-27] MEDS: OXYcodone IR 5MG TABLET PO PRN (15:26)
[2019-02-27 20:58] VITALS: BP 159/79
[2019-02-28 01:48] VITALS: BP 160/74
[2019-02-28] MEDS: SODIUM CHLORIDE 0.9% 1,000 ML IV SCH ×2 (04:17→20:40)
[2019-02-28] MEDS: PIPERACILLIN/TAZO/PMX 3.375GM 50 ML IV SCH ×4 (04:17→20:59)
[2019-02-28] MEDS: ACETAMINOPHEN 325 MG TABLET PO SCH ×4 (04:18→20:58)
[2019-02-28 06:15] VITALS: BP 160/75
[2019-02-28] MEDS: CARVEDILOL 6.25 MG TABLET PO SCH ×2 (06:16→17:46)
[2019-02-28] MEDS: HEPARIN 5,000 UNITS/ML, 1ML SQ SCH ×3 (07:30→23:09)
[2019-02-28] MEDS: ISOSORBIDE DINITRATE 10 MG TABLET PO SCH ×3 (09:22→20:58)
[2019-02-28] MEDS: FERROUS SULFATE 325 MG TABLET PO SCH (09:22)
[2019-02-28] MEDS: LISINOPRIL 20 MG TABLET PO SCH (09:22)
[2019-02-28] MEDS: LINEZOLID 600 MG TABLET PO SCH ×2 (11:11→23:16)
[2019-02-28 13:44] VITALS: BP 179/74
[2019-02-28 14:03] LABS: OCCULT BLOOD NEGATIVE (NEGATIVE)
[2019-02-28 17:45] VITALS: BP 161/79
[2019-02-28 19:41] VITALS: BP 155/79
[2019-02-28] MEDS: OXYcodone IR 5MG TABLET PO PRN (23:16)
[2019-03-01 02:57] VITALS: BP 150/65
[2019-03-01] MEDS: PIPERACILLIN/TAZO/PMX 3.375GM 50 ML IV SCH ×4 (03:39→20:47)
[2019-03-01] MEDS: ACETAMINOPHEN 325 MG TABLET PO SCH ×4 (03:39→20:47)
[2019-03-01 05:29] LABS: BASOPHILS # (AUTO) 0.16 x10^3/uL (0-0.1); BASOPHILS % (AUTO) 2 % (0-1); EOSINOPHILS # (AUTO) 0.43 x10^3/uL (0-0.4); EOSINOPHILS % (AUTO) 6 % (1-7); LYMPHOCYTES # (AUTO) 2.15 x10^3/uL (1-3.4); LYMPHOCYTES % (AUTO) 30 % (22-44); MD NO; MEAN CORPUSCULAR HEMOGLOBIN 30.1 pg (27.5-34.5); MEAN CORPUSCULAR HGB CONC 32.5 g/dL (33.2-36.2); MEAN CORPUSCULAR VOLUME 92.6 fL (81-97); MEAN PLATELET VOLUME 6.2 fL (7.4-10.4); MONOCYTES # (AUTO) 0.57 x10^3/uL (0.2-0.8); MONOCYTES % (AUTO) 8 % (2-9); NEUTROPHILS # (AUTO) 3.89 x10^3/uL (1.8-6.8); NEUTROPHILS % (AUTO) 54 % (42-75); PLATELET COUNT 478 x10^3/uL (130-400); RED BLOOD COUNT 2.95 x10^6/uL (4.38-5.82); RED CELL DISTRIBUTION WIDTH 18.4 % (9.4-14.8)
[2019-03-01 05:43] LABS: ALANINE AMINOTRANSFERASE 14 U/L (12-78); ANION GAP 6 mmol/L (5-15); CALCIUM 8.5 mg/dL (8.5-10.1); CHLORIDE 110 mmol/L (98-107)
[2019-03-01 05:54] LABS: ALKALINE PHOSPHATASE 44 U/L (45-117); BILIRUBIN,TOTAL 0.1 mg/dL (0.2-1.0); TOTAL PROTEIN 8.1 g/dL (6.4-8.2)
[2019-03-01 06:04] LABS: SEDIMENTATION RATE > 120 mm/hr (0-10)
[2019-03-01 06:12] VITALS: BP 154/76
[2019-03-01] MEDS: CARVEDILOL 6.25 MG TABLET PO SCH ×2 (06:14→18:29)
[2019-03-01] MEDS: HEPARIN 5,000 UNITS/ML, 1ML SQ SCH ×3 (07:15→23:22)
[2019-03-01] MEDS: LISINOPRIL 20 MG TABLET PO SCH (09:19)
[2019-03-01] MEDS: ISOSORBIDE DINITRATE 10 MG TABLET PO SCH ×3 (09:20→20:48)
[2019-03-01] MEDS: LINEZOLID 600 MG TABLET PO SCH ×2 (10:38→23:22)
[2019-03-01 13:38] VITALS: BP 170/83
[2019-03-01] MEDS: PIPERONYL BUTOXIDE/PYRETHRINS SHAMPOO TP SCH (15:12)
[2019-03-01] MEDS: SODIUM CHLORIDE 0.9% 1,000 ML IV SCH (15:17)
[2019-03-01 15:30] VITALS: BP 169/77
[2019-03-01 19:29] VITALS: BP 169/81
[2019-03-01] MEDS: IBUPROFEN 200 MG TABLET PO PRN (20:48)
[2019-03-02 01:47] VITALS: BP 163/73
[2019-03-02] MEDS: PIPERACILLIN/TAZO/PMX 3.375GM 50 ML IV SCH ×4 (03:17→23:27)
[2019-03-02] MEDS: ACETAMINOPHEN 325 MG TABLET PO SCH ×4 (03:17→20:19)
[2019-03-02] MEDS: CARVEDILOL 6.25 MG TABLET PO SCH ×2 (05:38→17:37)
[2019-03-02] MEDS: FERROUS SULFATE 325 MG TABLET PO SCH (07:30)
[2019-03-02 08:07] VITALS: BP 160/84
[2019-03-02] MEDS: ISOSORBIDE DINITRATE 10 MG TABLET PO SCH ×3 (09:07→20:20)
[2019-03-02] MEDS: LISINOPRIL 20 MG TABLET PO SCH (09:08)
[2019-03-02] MEDS: SODIUM CHLORIDE 0.9% 1,000 ML IV SCH (09:08)
[2019-03-02] MEDS: LINEZOLID 600 MG TABLET PO SCH ×2 (09:08→23:27)
[2019-03-02] MEDS: HEPARIN 5,000 UNITS/ML, 1ML SQ SCH ×4 (09:09→23:28)
[2019-03-02 12:57] VITALS: BP 169/77
[2019-03-02] MEDS: LOSARTAN 25MG TABLET PO SCH (13:17)
[2019-03-02 18:37] VITALS: BP 177/85
[2019-03-03 01:18] VITALS: BP 161/79
[2019-03-03] MEDS: ACETAMINOPHEN 325 MG TABLET PO SCH ×4 (03:00→23:23)
[2019-03-03] MEDS: CARVEDILOL 6.25 MG TABLET PO SCH ×2 (05:26→18:31)
[2019-03-03] MEDS: PIPERACILLIN/TAZO/PMX 3.375GM 50 ML IV SCH ×3 (05:26→20:29)
[2019-03-03] MEDS: IBUPROFEN 200 MG TABLET PO PRN (05:27)
[2019-03-03] MEDS: SODIUM CHLORIDE 0.9% 1,000 ML IV SCH ×2 (05:31→20:30)
[2019-03-03] MEDS: HEPARIN 5,000 UNITS/ML, 1ML SQ SCH ×3 (07:30→23:22)
[2019-03-03 07:54] VITALS: BP 162/77
[2019-03-03] MEDS: ISOSORBIDE DINITRATE 30 MG TABLET PO SCH ×3 (11:08→20:30)
[2019-03-03] MEDS: LINEZOLID 600 MG TABLET PO SCH ×2 (11:08→23:23)
[2019-03-03] MEDS: LOSARTAN 25MG TABLET PO SCH (11:08)
[2019-03-03] MEDS: LISINOPRIL 20 MG TABLET PO SCH (11:08)
[2019-03-03 11:28] VITALS: BP 160/74
[2019-03-03 12:40] VITALS: BP 154/70
[2019-03-03 18:29] VITALS: BP 164/74
[2019-03-03 19:09] VITALS: BP 165/74
[2019-03-04 01:06] VITALS: BP 144/61
[2019-03-04] MEDS: PIPERACILLIN/TAZO/PMX 3.375GM 50 ML IV SCH ×4 (02:22→19:44)
[2019-03-04] MEDS: CARVEDILOL 6.25 MG TABLET PO SCH ×2 (05:39→17:38)
[2019-03-04] MEDS: ACETAMINOPHEN 325 MG TABLET PO SCH ×4 (05:39→22:13)
[2019-03-04] MEDS: HEPARIN 5,000 UNITS/ML, 1ML SQ SCH ×3 (07:30→23:23)
[2019-03-04] MEDS: FERROUS SULFATE 325 MG TABLET PO SCH (08:49)
[2019-03-04] MEDS: ISOSORBIDE DINITRATE 30 MG TABLET PO SCH (08:49)
[2019-03-04] MEDS: LISINOPRIL 20 MG TABLET PO SCH (08:50)
[2019-03-04] MEDS: LOSARTAN 25MG TABLET PO SCH (08:50)
[2019-03-04 09:01] VITALS: BP 175/79
[2019-03-04] MEDS: LINEZOLID 600 MG TABLET PO SCH ×2 (11:04→23:23)
[2019-03-04] MEDS: AMLODIPINE 2.5 MG TABLET PO SCH (11:04)
[2019-03-04 14:09] VITALS: BP 166/78
[2019-03-04] MEDS: SODIUM CHLORIDE 0.9% 1,000 ML IV SCH (15:08)
[2019-03-04] MEDS: ISOSORBIDE DINITRATE 10 MG TABLET PO SCH ×2 (16:27→20:21)
[2019-03-04 18:45] VITALS: BP 142/70
[2019-03-04] MEDS: OXYcodone IR 5MG TABLET PO PRN (20:22)
[2019-03-05 01:16] VITALS: BP 161/71
[2019-03-05] MEDS: PIPERACILLIN/TAZO/PMX 3.375GM 50 ML IV SCH ×4 (01:51→19:48)
[2019-03-05] MEDS: ACETAMINOPHEN 325 MG TABLET PO SCH ×4 (04:47→23:22)
[2019-03-05] MEDS: CARVEDILOL 6.25 MG TABLET PO SCH ×2 (06:26→17:38)
[2019-03-05 07:25] VITALS: BP 134/67
[2019-03-05] MEDS: SODIUM CHLORIDE 0.9% 1,000 ML IV SCH (07:30)
[2019-03-05] MEDS: HEPARIN 5,000 UNITS/ML, 1ML SQ SCH ×3 (07:30→23:24)
[2019-03-05] MEDS: ISOSORBIDE DINITRATE 10 MG TABLET PO SCH (08:37)
[2019-03-05] MEDS: LOSARTAN 25MG TABLET PO SCH (08:37)
[2019-03-05] MEDS: OXYcodone IR 5MG TABLET PO PRN ×2 (08:37→19:48)
[2019-03-05] MEDS: LISINOPRIL 20 MG TABLET PO SCH (08:38)
[2019-03-05] MEDS: AMLODIPINE 2.5 MG TABLET PO SCH (08:38)
[2019-03-05] MEDS: LINEZOLID 600 MG TABLET PO SCH ×2 (12:02→23:22)
[2019-03-05 13:36] VITALS: BP 142/65
[2019-03-05 19:31] VITALS: BP 157/76
[2019-03-06 00:51] VITALS: BP 154/75
[2019-03-06] MEDS: PIPERACILLIN/TAZO/PMX 3.375GM 50 ML IV SCH ×4 (02:23→20:12)
[2019-03-06] MEDS: OXYcodone IR 5MG TABLET PO PRN ×2 (05:25→20:11)
[2019-03-06] MEDS: CARVEDILOL 6.25 MG TABLET PO SCH ×2 (05:25→18:07)
[2019-03-06] MEDS: ACETAMINOPHEN 325 MG TABLET PO SCH ×4 (05:25→23:05)
[2019-03-06 06:00] LABS: HCT (SEDRATE) 32.6 % (39.2-51.8)
[2019-03-06 06:12] LABS: BASOPHILS # (AUTO) 0.05 x10^3/uL (0-0.1); BASOPHILS % (AUTO) 1 % (0-1); EOSINOPHILS # (AUTO) 0.38 x10^3/uL (0-0.4); EOSINOPHILS % (AUTO) 8 % (1-7); LYMPHOCYTES % (AUTO) 37 % (22-44); MD NO; MEAN CORPUSCULAR HGB CONC 32.1 g/dL (33.2-36.2); MEAN CORPUSCULAR VOLUME 93.6 fL (81-97); MEAN PLATELET VOLUME 6.1 fL (7.4-10.4); MONOCYTES % (AUTO) 9 % (2-9); NEUTROPHILS # (AUTO) 2.11 x10^3/uL (1.8-6.8); NEUTROPHILS % (AUTO) 46 % (42-75); PLATELET COUNT 421 x10^3/uL (130-400); RED BLOOD COUNT 3.54 x10^6/uL (4.38-5.82); RED CELL DISTRIBUTION WIDTH 18.7 % (9.4-14.8)
[2019-03-06 06:13] LABS: CHLORIDE 105 mmol/L (98-107)
[2019-03-06 06:19] LABS: ALANINE AMINOTRANSFERASE 22 U/L (12-78); ALBUMIN 2.5 g/dL (3.4-5.0); ALKALINE PHOSPHATASE 46 U/L (45-117); ANION GAP 6 mmol/L (5-15); BILIRUBIN,TOTAL 0.3 mg/dL (0.2-1.0); C-REACTIVE PROTEIN, QUANT 0.93 mg/dL (0.02-0.49); CALCIUM 8.9 mg/dL (8.5-10.1); CREATININE 0.71 mg/dL (0.7-1.3); TOTAL PROTEIN 8.8 g/dL (6.4-8.2)
[2019-03-06] MEDS: HEPARIN 5,000 UNITS/ML, 1ML SQ SCH ×3 (07:30→23:01)
[2019-03-06 08:10] VITALS: BP 149/71
[2019-03-06] MEDS: LISINOPRIL 20 MG TABLET PO SCH (08:29)
[2019-03-06] MEDS: FERROUS SULFATE 325 MG TABLET PO SCH (08:29)
[2019-03-06] MEDS: AMLODIPINE 2.5 MG TABLET PO SCH (08:29)
[2019-03-06] MEDS: LINEZOLID 600 MG TABLET PO SCH ×2 (11:34→23:05)
[2019-03-06 14:34] VITALS: BP 159/77
[2019-03-06 18:06] VITALS: BP 187/82
[2019-03-06 22:35] VITALS: BP 162/69
[2019-03-07 00:30] VITALS: BP 175/79
[2019-03-07] MEDS: hydrALAzine 20 MG/ML, 1ML IV PRN (00:42)
[2019-03-07] MEDS: PIPERACILLIN/TAZO/PMX 3.375GM 50 ML IV SCH ×4 (02:06→19:51)
[2019-03-07 02:08] VITALS: BP 164/52
[2019-03-07] MEDS: CARVEDILOL 6.25 MG TABLET PO SCH (05:35)
[2019-03-07] MEDS: ACETAMINOPHEN 325 MG TABLET PO SCH ×4 (05:37→23:31)
[2019-03-07] MEDS: HEPARIN 5,000 UNITS/ML, 1ML SQ SCH ×3 (07:30→23:30)
[2019-03-07 08:29] VITALS: BP 154/80
[2019-03-07] MEDS: AMLODIPINE 2.5 MG TABLET PO SCH (08:32)
[2019-03-07] MEDS: LISINOPRIL 20 MG TABLET PO SCH (08:33)
[2019-03-07] MEDS: LINEZOLID 600 MG TABLET PO SCH ×2 (12:35→23:30)
[2019-03-07 14:22] VITALS: BP 148/76
[2019-03-07] MEDS: CARVEDILOL 12.5 MG TABLET PO SCH (17:16)
[2019-03-07 18:48] VITALS: BP 155/79
[2019-03-07] MEDS: OXYcodone IR 5MG TABLET PO PRN (23:30)
[2019-03-08 01:18] VITALS: BP 154/78
[2019-03-08] MEDS: PIPERACILLIN/TAZO/PMX 3.375GM 50 ML IV SCH ×4 (02:18→19:55)
[2019-03-08 06:00] LABS: BASOPHILS # (AUTO) 0.07 x10^3/uL (0-0.1); BASOPHILS % (AUTO) 1 % (0-1); EOSINOPHILS # (AUTO) 0.41 x10^3/uL (0-0.4); EOSINOPHILS % (AUTO) 7 % (1-7); LYMPHOCYTES # (AUTO) 1.97 x10^3/uL (1-3.4); LYMPHOCYTES % (AUTO) 36 % (22-44); MD NO; MEAN CORPUSCULAR HEMOGLOBIN 30.2 pg (27.5-34.5); MEAN CORPUSCULAR HGB CONC 32.1 g/dL (33.2-36.2); MEAN CORPUSCULAR VOLUME 94.1 fL (81-97); MEAN PLATELET VOLUME 6.2 fL (7.4-10.4); MONOCYTES # (AUTO) 0.19 x10^3/uL (0.2-0.8); MONOCYTES % (AUTO) 4 % (2-9); NEUTROPHILS # (AUTO) 2.81 x10^3/uL (1.8-6.8); NEUTROPHILS % (AUTO) 52 % (42-75); PLATELET COUNT 375 x10^3/uL (130-400); RED BLOOD COUNT 3.48 x10^6/uL (4.38-5.82); RED CELL DISTRIBUTION WIDTH 19.6 % (9.4-14.8)
[2019-03-08 06:02] LABS: HCT (SEDRATE) 32.7 % (39.2-51.8)
[2019-03-08] MEDS: ACETAMINOPHEN 325 MG TABLET PO SCH ×3 (06:12→18:28)
[2019-03-08] MEDS: CARVEDILOL 12.5 MG TABLET PO SCH ×2 (06:13→18:28)
[2019-03-08 06:14] LABS: ALBUMIN 2.6 g/dL (3.4-5.0); ANION GAP 6 mmol/L (5-15); CALCIUM 8.9 mg/dL (8.5-10.1); CHLORIDE 105 mmol/L (98-107)
[2019-03-08 06:24] LABS: ALANINE AMINOTRANSFERASE 28 U/L (12-78); ALKALINE PHOSPHATASE 57 U/L (45-117); BILIRUBIN,TOTAL 0.4 mg/dL (0.2-1.0); CREATININE 0.77 mg/dL (0.7-1.3); TOTAL PROTEIN 8.9 g/dL (6.4-8.2)
[2019-03-08] MEDS: HEPARIN 5,000 UNITS/ML, 1ML SQ SCH ×3 (07:30→23:28)
[2019-03-08 07:48] VITALS: BP 126/70
[2019-03-08 08:12] VITALS: BP 143/86
[2019-03-08] MEDS: FERROUS SULFATE 325 MG TABLET PO SCH (08:14)
[2019-03-08] MEDS: LISINOPRIL 20 MG TABLET PO SCH (08:14)
[2019-03-08] MEDS: AMLODIPINE 10 MG TAB PO SCH (08:14)
[2019-03-08] MEDS: LINEZOLID 600 MG TABLET PO SCH ×2 (10:59→22:38)
[2019-03-08 14:17] VITALS: BP 130/69
[2019-03-08 18:27] VITALS: BP 169/69
[2019-03-08 19:36] VITALS: BP 159/68
[2019-03-09 00:03] VITALS: BP 146/66
[2019-03-09] MEDS: ACETAMINOPHEN 325 MG TABLET PO SCH ×4 (00:08→18:06)
[2019-03-09] MEDS: PIPERACILLIN/TAZO/PMX 3.375GM 50 ML IV SCH ×2 (01:46→08:18)
[2019-03-09 06:09] VITALS: BP 166/93
[2019-03-09] MEDS: CARVEDILOL 12.5 MG TABLET PO SCH ×2 (06:11→18:06)
[2019-03-09 07:35] VITALS: BP 162/78
[2019-03-09] MEDS: HEPARIN 5,000 UNITS/ML, 1ML SQ SCH ×2 (08:00→16:00)
[2019-03-09] MEDS: LISINOPRIL 20 MG TABLET PO SCH (08:18)
[2019-03-09] MEDS: LINEZOLID 600 MG TABLET PO SCH (08:18)
[2019-03-09] MEDS: AMLODIPINE 10 MG TAB PO SCH (08:18)
[2019-03-09 12:03] VITALS: BP 160/76
[2019-03-09 20:04] VITALS: BP 161/75
[2019-03-10] MEDS: ACETAMINOPHEN 325 MG TABLET PO SCH ×4 (00:28→18:33)
[2019-03-10 01:20] VITALS: BP 143/77
[2019-03-10] MEDS: CARVEDILOL 12.5 MG TABLET PO SCH ×2 (04:59→18:34)
[2019-03-10 05:00] VITALS: BP 164/77
[2019-03-10 07:53] VITALS: BP 158/79
[2019-03-10] MEDS: HEPARIN 5,000 UNITS/ML, 1ML SQ SCH ×3 (08:00→15:41)
[2019-03-10] MEDS: FERROUS SULFATE 325 MG TABLET PO SCH (08:24)
[2019-03-10] MEDS: AMLODIPINE 10 MG TAB PO SCH (08:24)
[2019-03-10] MEDS: LISINOPRIL 20 MG TABLET PO SCH (08:24)
[2019-03-10 13:56] VITALS: BP 153/78
[2019-03-10 19:57] VITALS: BP 159/78
[2019-03-11 01:11] VITALS: BP 142/66
[2019-03-11 05:37] VITALS: BP 169/74
[2019-03-11] MEDS: ACETAMINOPHEN 325 MG TABLET PO SCH ×5 (05:40→23:23)
[2019-03-11] MEDS: CARVEDILOL 12.5 MG TABLET PO SCH ×2 (05:40→18:09)
[2019-03-11] MEDS: HEPARIN 5,000 UNITS/ML, 1ML SQ SCH ×4 (08:00→23:21)
[2019-03-11] MEDS: AMLODIPINE 10 MG TAB PO SCH (09:41)
[2019-03-11] MEDS: LISINOPRIL 20 MG TABLET PO SCH (09:41)
[2019-03-11 09:42] VITALS: BP 153/82
[2019-03-11] MEDS ORDERED: MORPHINE SULFATE 4 MG/ML, 1ML IVPush ONE (13:30)
[2019-03-11 13:38] VITALS: BP 164/86
[2019-03-11 21:45] VITALS: BP 158/83
[2019-03-12 01:42] VITALS: BP 129/77
[2019-03-12 05:24] VITALS: BP 134/76
[2019-03-12] MEDS: CARVEDILOL 12.5 MG TABLET PO SCH ×2 (05:26→18:00)
[2019-03-12] MEDS: ACETAMINOPHEN 325 MG TABLET PO SCH ×3 (05:26→18:00)
[2019-03-12] MEDS: HEPARIN 5,000 UNITS/ML, 1ML SQ SCH ×2 (08:00→16:00)
[2019-03-12] MEDS: FERROUS SULFATE 325 MG TABLET PO SCH (08:23)
[2019-03-12] MEDS: AMLODIPINE 10 MG TAB PO SCH (08:23)
[2019-03-12] MEDS: LISINOPRIL 20 MG TABLET PO SCH (08:23)
[2019-03-12 09:09] VITALS: BP 136/75
[2019-03-12] MEDS ORDERED: AMLO10TA8 PO (16:04)
[2019-03-12] MEDS ORDERED: CARV12.543 PO (16:04)
[2019-03-12] MEDS ORDERED: LISI-170 PO (16:04)
[2019-03-12 16:22] VITALS: BP 158/78
== END 2019-03-12 18:25 | disposition home or self-care (01) | DRG 854 ==
LOC: ED 23:59 → EDIP 02-21 01:07 → 4WST 02-21 02:43 → 3NE 03-01 11:01
PROVIDERS: ADMIT Family Medicine; ATTEND Internal Medicine
PROC: 0KBS0ZZ Excision of Right Lower Leg Muscle, Open Approach (ICD-10-PCS; principal; 2019-02-22 20:00)
PROC: 0KBS0ZZ Excision of Right Lower Leg Muscle, Open Approach (ICD-10-PCS; 2019-02-24)
PROC: 0HRKX74 Replacement of Right Lower Leg Skin with Autologous Tissue Substitute, Partial Thickness, External Approach (ICD-10-PCS; 2019-02-26)
DX: A41.9 Sepsis, unspecified organism (principal); L03.115 Cellulitis of right lower limb; L02.415 Cutaneous abscess of right lower limb; L03.116 Cellulitis of left lower limb; E44.0 Moderate protein-calorie malnutrition; L97.919 Non-pressure chronic ulcer of unspecified part of right lower leg with unspecified severity; D50.9 Iron deficiency anemia, unspecified; Z91.19 Patient's noncompliance with other medical treatment and regimen; F10.10 Alcohol abuse, uncomplicated; I10 Essential (primary) hypertension; B85.2 Pediculosis, unspecified; B87.9 Myiasis, unspecified; E86.0 Dehydration; F17.210 Nicotine dependence, cigarettes, uncomplicated; I35.8 Other nonrheumatic aortic valve disorders; N50.89 Other specified disorders of the male genital organs; Z59.0 Homelessness; Z68.24 Body mass index [BMI] 24.0-24.9, adult; Z82.5 Family history of asthma and other chronic lower respiratory diseases; Z88.1 Allergy status to other antibiotic agents
CPT/HCPCS: 36415; 84145; 87806; 99291; J7042; 80048; 80053; 80061; 80202; 80307; 82272; 82565; 83540; 83550; 83605; 83880; 85025; 85610; 85651; 85730; 86038; 86140; 86592; 87040; 87070; 87077; 87181; 87186; 87205; 87491; 87591; 93005; 96374; G0378; J0171; J0295; J0690; J1100; J1170; J1644; J2250; J2405; J2543; J2704; J3010; J3370; J3411; J3475; J3480; G0475; J0360; J1200; J2270; J7030; J7050; J7120

== ENCOUNTER 2019-03-22 22:58 | Emergency (ER) | payer MEDICAID ==
[~2019-03-22] VITALS: Ht 185.4 cm; Wt 84.0 kg
[~2019-03-22 22:58] MED LIST changes: +AMLO10TA8 PO; +CARV12.543 PO
--- NOTE | 2019-03-22 23:05 | NUR ---
NO RESPONSE TO NAME CALLED IN WAITING ROOM
[2019-03-22 23:10] VITALS: BP 162/82
--- NOTE | 2019-03-22 23:20 | NUR ---
to room 33
--- NOTE | 2019-03-23 00:09 | NUR ---
tech at bedside for wound care
== END 2019-03-23 00:27 | disposition home or self-care (01) ==
LOC: ED 03-23 00:10
DX: S81.831A Puncture wound without foreign body, right lower leg, initial encounter (principal); I10 Essential (primary) hypertension; F17.200 Nicotine dependence, unspecified, uncomplicated; X58.XXXA Exposure to other specified factors, initial encounter; Y93.89 Activity, other specified; Y92.89 Other specified places as the place of occurrence of the external cause; Y99.8 Other external cause status
CPT/HCPCS: 99282

== ENCOUNTER 2019-04-10 02:51 | Emergency (ER) | payer MEDICAID ==
[~2019-04-10] VITALS: Ht 185.4 cm; Wt 84.1 kg
[2019-04-10 05:45] VITALS: BP 124/76
== END 2019-04-10 05:48 | disposition home or self-care (01) ==
LOC: ED 03:14
DX: M79.661 Pain in right lower leg (principal); I10 Essential (primary) hypertension; F17.200 Nicotine dependence, unspecified, uncomplicated
CPT/HCPCS: 99284

== ENCOUNTER 2020-04-11 18:36 | Emergency (ER) | payer MEDICAID, OTHER ==
[~2020-04-11] VITALS: Ht 185.4 cm; Wt 90.0 kg
[2020-04-11 18:48] VITALS: BP 128/70
--- NOTE | 2020-04-11 19:16 | NUR ---
NOT IN LOBBY
--- NOTE | 2020-04-11 21:24 | NUR ---
PT RETURNED TO [facility], JANE GONZALEZ SAW PT IN [employer] TECH TOOK PT TO SHOWER AT THIS TIME
--- NOTE | 2020-04-11 21:39 | NUR ---
PT ANGRY AT STAFF THAT WE DID NOT HAVE CLOTHES AND LEFT
== END 2020-04-11 21:41 ==
LOC: ED 21:34
DX: B86 Scabies (principal); I10 Essential (primary) hypertension
CPT/HCPCS: 99283

== ENCOUNTER 2020-10-30 02:34 | Inpatient (IN) | payer MEDICAID, OTHER ==
[~2020-10-30] VITALS: Ht 177.8 cm; Wt 74.3 kg
[2020-10-30] VITALS (18 sets, daily range): BP systolic 68–122; BP diastolic 23–53
[~2020-10-30 02:34] MED LIST changes: +AMLO-211 PO; -AMLO10TA8 PO; -ASPI-515 PO; +ASPI-963 PO; +HYDR-1067 PO; -HYDR-3240 PO; -OXYC-302 PO; +OXYC1TAB14 PO
--- NOTE | 2020-10-30 02:41 | NUR ---
PT BIBA AFTER AN UNKNOWN PERSON CALLED STATING HE NEEDED MEDICAL ATTENTION AND HAD BEEN DRINKING ALCOHOL. PT FOUND LYING DOWN ON GROUND WITH JACKET UNZIPPED. PT OPENS EYES AND WILL LOOK AROUND BUT DOES NOT ANSWER ANY QUESTIONS AND WONT TALK AT THIS TIME. PT FOUND TO HAVE BROWN SMALL BUGS THROUGHOUT ENTIRE BODY AND CLOTHING, ONE BUG COLLECTED. EMS WAS UNABLE TO GET TEMP ON PATIENT, HR IN 50'S, BP 100/63, 97% RA, BLOOD SUGAR 129. PT LYING ON GURNEY.
--- NOTE | 2020-10-30 03:30 | NUR ---
PATIENT BEING DECONNED BY JULIANNE ALVARADO AND JOSÉ MANUEL Botello RN IN DECON ROOM WITH PROPER PPE ON
--- NOTE | 2020-10-30 03:45 | NUR ---
PATIENT HAS SKIN BREAKDOWN SCATTERED OVER BACK, BILATERAL UPPER AND LOWER LEGS, FEET, TRENCH FOOT ON BLE, LARGE AMOUNT OF MAGGOTS FOUND WHEN REMOVING SOCKS, ULCERATION/SKIN BREAKDOWN ON TIP OF MEATUS
--- NOTE | 2020-10-30 04:00 | NUR ---
PATIENT TRANSFERRED TO NEW ER ROOM AFTER DECON. LICE/OTHER BUGS STILL REMAIN ON PATIENT. PATIENT ABLE TO TELL ME HIS NAME AND . I REVERBALIZED THIS BACK TO HIM AND HE REPORTED THIS WAS CORRECT. HE TOLD ME HIS NAME WAS VERONIQUE SILVER AND BIRTHDAY WAS 1955. PATIENT ONLY ORIENTED TO SELF. UNABLE TO ANSWER ANY OTHER QUESTIONS. DOES TELL ME HE IS HOMELESS. I REASSURED PATIENT AND ORIENTED TO PLACE, TIME AND SITUATION. PATIENT DROWSY MAJORITY OF TIME. 1:1 NURSING CARE STARTED AT THIS TIME
[2020-10-30] MEDS ORDERED: SODIUM CHLORIDE 0.9% 1,000ML IVBOLUS ONE ×2 (04:30→05:30)
--- NOTE | 2020-10-30 04:36 | NUR ---
FLUID WARMER STARTED WITH 1L NS BOLUS IN RAC 18G. EFFIE HUGGER INITIATED DUE TO RECTAL TEMP 81.1F PATIENT PLACED ON 2L VIA NC AT THIS TIME DUE TO PATIENT 02 SATURATION ON RA DECREASING TO 86%
--- NOTE | 2020-10-30 04:58 | NUR ---
ATTEMPTED TO STRAIGHT CATH PATIENT X2. 1ST ATTEMPT WITH RED LATEX CATHETER AND TIP OF MEATUS CLEANSED PER PROTOCOL WITH BETADINE AND STERILITY MAINTAINED. ATTEMPT TO INSERT CATHETER WAS UNSUCCESSFUL CATHETER WAS TOO LARGE FOR URETHRA AND TIP OF MEATUS ULCERATED ON ARRIVAL. THIS SIZED CATHETER WOULD NOT EVEN PENETRATE URETHRA AND URETHRA SEEMED TO BE ULCERATED/MACERATED CLOSED. THIS IS SCABBED, RED, BLEEDING AT TIMES. I ATTEMPTED AGAIN WITH FEMALE SIZED CATHETER, 8FR, AND THIS WAS EASY INSERTION BUT UNABLE TO GET ANY URINE.
[2020-10-30 05:05] LABS: ALANINE AMINOTRANSFERASE 23 U/L (12-78); ALBUMIN 1.8 g/dL (3.4-5.0); ANION GAP 16 mmol/L (5-15); CALCIUM 8.5 mg/dL (8.5-10.1); CHLORIDE 115 mmol/L (98-107); CREATININE 1.13 mg/dL (0.7-1.3)
--- NOTE | 2020-10-30 05:05 | NUR ---
PATIENT BECOMING COMBATIVE AND SITTING UP IN BED AND SWINGING BILATERAL ARMS/FISTS AT RN AND THROWING LEGS UP IN THE AIR MULTIPLE TIMES ONE AFTER ANOTHER TOWARDS RN'S FACE AND TRUNK. PATIENT NOT ABLE TO BE REDIRECTE AND UNABLE TO TRULY TREAT THIS PATIENT. WAS ATTEMPTING EKG AND PATIENT WOULD NOT REMAIN STILL FOR ACCURATE EKG. DR. JUNG NOTIFIED AND PT PLACED IN BUE SOFT WRIST RESTRAINTS. RN HAS BEEN 1:1 IN ROOM SINCE PATIENT HAS BEEN DECONNED
[2020-10-30 05:08] LABS: ALKALINE PHOSPHATASE 104 U/L (45-117); BILIRUBIN,TOTAL 0.5 mg/dL (0.2-1.0); CREATINE KINASE, TOTAL 407 U/L (39-308); TOTAL PROTEIN 7.5 g/dL (6.4-8.2); TROPONIN I < 0.015 ng/mL (0.000-0.045)
[2020-10-30 05:09] LABS: SALICYLATE LEVEL < 1.7 mg/dL (2.8-20.0)
[2020-10-30] MEDS ORDERED: PIPERACILLIN/TAZO/PMX 3.375GM 50 ML ONE (05:17)
[2020-10-30] MEDS ORDERED: PLEASE ENTER ALLERGIES MC SCH (05:30)
[2020-10-30] MEDS ORDERED: VANCOMYCIN PER PHARMACY MC ONE (05:30)
[2020-10-30] MEDS ORDERED: LACTATED RINGERS 1,000 ML IVBOLUS ONE (05:30)
[2020-10-30] MEDS ORDERED: PIPERACILLIN/TAZO/PMX 3.375GM 50 ML IVPB ONE (05:30)
--- NOTE | 2020-10-30 05:30 | NUR ---
PATIENT ATTEMPTING MULTIPLE TIMES TO GET OOB. KICKING FEET UP AND REMOVING EFFIE HUGGER AND BLANKETS AND PUTTING THEM OVER SIDE RAIL. RN REMAINS AT BEDSIDE FOR 1:1 NURSING AND REORIENTED PATIENT AND INSTRUCTED HIM TO PUT HIS LEGS DOWN. PATIENT MADE EYE CONTACT WITH ME AND PUT LEGS BACK ON MATTRESS. PATIENT DID THIS NUMEROUS TIMES. EFFIE HUGGER RE-APPLIED MULTIPLE TIMES. EFFIE HUGGER ON HIGH TEMP. FLUID WARMER REMAINS ON AND INFUSING NS PER ORDERS
[2020-10-30 05:51] LABS: MEAN CORPUSCULAR HEMOGLOBIN 21.5 pg (27.5-34.5); PLATELET COUNT 506 x10^3/uL (130-400); RED CELL DISTRIBUTION WIDTH 20.8 % (9.4-14.8)
[2020-10-30] MEDS ORDERED: VANCOMYCIN 1,700 MG in SODIUM CHLORIDE 0.9% 250 ML IV ONE (06:00)
[2020-10-30] MEDS ORDERED: [UNRECOGNIZED DRUG - OTHER] MC SCH (06:00)
--- NOTE | 2020-10-30 06:00 | NUR ---
O2 SATURATION AT 90%. TITARTED NC UP TO 3L. O2 SATURATION NOW 94-95%. PATIENT REPEATEDLY PUTTING LEGS UP ON SIDE RAILS. VISIBLE LICE/BUGS CONTINUE TO BE PRESENT ON PATIENT INCLUDING IN HAIR. PATIENT'S BED PLACED IN TRENDELENBERG FOR SAFETY. BILATERAL SOFT WRIST RESTRAINTS REMAIN IN PLACE. PROPER PPE REMAINED ON ENTIRETY OF CARING FOR THIS PATIENT. 1:1 NURSING STARTED AT 0330 FOR DECON AND ENDED AT 0620. COLORED LIQUID PLASTIC APPLIER AWARE. SCOTT RN AVAILABLE WELL WORLD HISTORY TEACHER TO HELP WITH GRABBING SUPPLIES I NEEDED AND SENDING LABS I OBTAINED WELL GRABBING IVF AND MEDICATIONS
[2020-10-30 06:02] LABS: MEAN CORPUSCULAR HGB CONC 29.4 g/dL (33.2-36.2)
[2020-10-30 06:24] LABS: MD YES
[2020-10-30 06:25] LABS: ANISOCYTOSIS 1+; BAND#(MANUAL) 3.85 x10^3/uL; BANDS%(MANUAL) 22 % (0-7); HYPOCHROMIA 2+; LYMPH#(MANUAL) 0.53 x10^3/uL (1-3.4); LYMPHS% (MANUAL) 3 % (22-44); MICROCYTOSIS 1+; POLYCHROMASIA 1+; SEG#(MANUAL) 13.13 x10^3/uL (1.8-6.8); SEGS% (MANUAL) 75 % (42-75)
[2020-10-30 06:26] LABS: <PLATELET ESTIMATE> INCREASED; LARGE PLATELETS 1+
--- NOTE | 2020-10-30 06:46 | NUR ---
UPDATED DR. AGUILAR ON H&H, UNABLE TO GET EKG EARLIER, UNABLE TO OBTAIN UA/UTOX. ALSO, NOTIFIED HIM PUPILS PINPOINT. CALLED CT AND RADIOLOGY FOR UPDATE ON CT AND CXR. BOTH DEPARTMENTS UNAWARE OF PROTOCOL FOR ACTIVE LICE AND SCANNING/IMAGINING. WAS TOLD THEY WOULD CALL ME BACK. NOTIFIED DR. AGUILAR. NOTIFIED BUSINESS LOAN PROCESSOR WILL CONTINUE TO MONITOR.
--- NOTE | 2020-10-30 07:00 | NUR ---
REPORT GIVEN TO LEIGH ANN LUGO
--- NOTE | 2020-10-30 07:23 | NUR ---
ASSUMED CARE OF PT. RECTAL TEMP PROBE INSERTED. TEMP 29.3C. PT AOX1. MANUAL BP 82/38. PT CLEANED, NEW LINENS PLACED, AND PT WRAPPED IN WARM BLANKETS W/HAIR NET PLACED FOR TRANSFER TO CT.
[2020-10-30] MEDS ORDERED: SODIUM CHLORIDE FLUSH 10ML SYR IVF PRN (07:30)
--- NOTE | 2020-10-30 07:45 | NUR ---
LATE ENTRY: PT CALM AND RESTING ON GURNEY. RESTRAINTS REMOVED.
[2020-10-30] MEDS ORDERED: ENALAPRILAT 1.25 MG/ML, 2ML IVPush PRN (08:00)
[2020-10-30] MEDS ORDERED: ONDANSETRON 2MG/ML, 2ML IVPush PRN (08:00)
[2020-10-30] MEDS ORDERED: LABETALOL 5MG/ML, 20ML IVPush PRN (08:00)
--- NOTE | 2020-10-30 08:00 | NUR ---
LATE ENTRY: PT TO CT W/RN AND TECH ASSIST. TRANSPORT MONITOR CONNECTED. PT REMAINS CALM
--- NOTE | 2020-10-30 08:15 | NUR ---
LATE ENTRY: PT BACK IN ROOM FROM CT. MD NOTIFIED OF HYPOTENSION. MD AT BEDSIDE FOR CENTRAL LINE PLACEMENT. CENTRAL LINE PLACED BY MD USING STERILE TECHNIQUE. PT TOLERATED PROCEDURE W/O INCIDENT.
[2020-10-30 09:05] LABS: FREE T4 (FREE THYROXINE) 0.81 ng/dL (0.76-1.46)
[2020-10-30] MEDS: NOREPINEPHRINE 8 MG in SODIUM CHLORIDE 0.9% 242 ML IV PRN ×2 (09:16→18:14)
--- NOTE | 2020-10-30 09:16 | NUR ---
LATE ENTRY: NOREPI INFUSING PER ORDER. BLOOD TRANSFUSING PER ORDER USING HOSPITAL PROTOCOL. PT RESTING CALMLY ON GURNEY. MONITORS CONNECTED. EKG COMPLETE. WARM BLANKETS AND BEAR HUGGER IN PLACE. CONTINUE TEMPERATURE MONITORING.
--- NOTE | 2020-10-30 09:45 | NUR ---
REPORT GIVEN TO PARAMJIT TREATER HELPER. RN MADE AWARE OF CONTINUE BUG INFESTATION DESPITE PREVIOUS ED DECON. PT TRANSPORTED TO ICU ON MONITOR W/RN AND CHIEF POWER DISPATCHER. RN AND TECH ASSISTED TREATER HELPER IN TRANSFERRING PT TO ICU BED, STOOL CLEAN UP, MONITOR RECONNECTION. PT TOLERATED TRANSFER W/O INCIDENT.
[2020-10-30] MEDS ORDERED: BISACODYL 10 MG SUPP PR PRN (10:00)
[2020-10-30] MEDS ORDERED: POLYETHYLENE GLYCOL 17 GM PACKET PO PRN (10:00)
[2020-10-30] MEDS ORDERED: CEFTRIAXONE PMX 2GM/50ML 50 ML IVPB SCH (10:30)
[2020-10-30] MEDS: SENNA/DOCUSATE TABLET PO SCH (10:33)
[2020-10-30] MEDS: MAGNESIUM SULFATE 1 GM, THIAMINE 200 MG, FOLIC ACID 1 MG in SODIUM CHLORIDE 0.9% 1,000 ML IV SCH (10:33)
[2020-10-30] MEDS ORDERED: AZITHROMYCIN 500 MG in SODIUM CHLORIDE 0.9% 250 ML IV SCH (11:30)
[2020-10-30] MEDS: ENOXAPARIN 40 MG/0.4 ML SQ SCH (11:34)
[2020-10-30] MEDS ORDERED: VANCOMYCIN PER PHARMACY MC PRN (12:00)
[2020-10-30] MEDS ORDERED: PHARMACOKINETIC MONITORING MC PRN (12:30)
[2020-10-30] MEDS ORDERED: PHARMACOKINETIC CONSULTATION MC ONE (12:30)
[2020-10-30] MEDS: PIPERACILLIN/TAZO/PMX 3.375GM 50 ML IV SCH ×3 (12:38→23:18)
[2020-10-30 14:02] LABS: RAPID INFLUENZA A Negative (Negative); RAPID INFLUENZA B Negative (Negative)
[2020-10-30] MEDS ORDERED: VASOPRESSIN 20 UNIT in SODIUM CHLORIDE 0.9% 99 ML IV PRN (16:00)
[2020-10-30] MEDS: SODIUM CHLORIDE 0.9% 1,000 ML IV SCH (18:14)
[2020-10-30 19:06] LABS: CLOSTRIDIUM DIFFICILE ANTIGEN NEGATIVE; CLOSTRIDIUM DIFFICILE TOXIN NEGATIVE (Negative)
[2020-10-31] MEDS ORDERED: VANCOMYCIN 1,400 MG in SODIUM CHLORIDE 0.9% 250 ML IV SCH
[2020-10-31] MEDS: NOREPINEPHRINE 8 MG in SODIUM CHLORIDE 0.9% 242 ML IV PRN ×3 (00:43→11:13)
[2020-10-31 01:55] LABS: MICROSCOPIC INDICATED
[2020-10-31 02:05] LABS: AMPHETAMINE SCREEN, URINE Negative (Negative); BARBITURATE SCREEN, URINE Negative (Negative); BENZODIAZEPINE SCREEN, URINE Negative (Negative); CANNABINOID SCREEN, URINE Positive (Negative); COCAINE SCREEN, URINE Negative (Negative); METHADONE SCREEN, URINE Negative (Negative); OPIATE SCREEN, URINE Negative (Negative)
[2020-10-31 03:22] LABS: MEAN CORPUSCULAR HEMOGLOBIN 23.6 pg (27.5-34.5); MEAN CORPUSCULAR HGB CONC 31.4 g/dL (33.2-36.2); MEAN PLATELET VOLUME 7.4 fL (7.4-10.4); PLATELET COUNT 426 x10^3/uL (130-400); RED BLOOD COUNT 2.99 x10^6/uL (4.38-5.82); RED CELL DISTRIBUTION WIDTH 22.5 % (9.4-14.8)
[2020-10-31 03:31] LABS: ALBUMIN 1.4 g/dL (3.4-5.0); ANION GAP 10 mmol/L (5-15); CALCIUM 7.2 mg/dL (8.5-10.1); CHLORIDE 124 mmol/L (98-107)
[2020-10-31 03:36] LABS: ALANINE AMINOTRANSFERASE 34 U/L (12-78); ALKALINE PHOSPHATASE 74 U/L (45-117); BILIRUBIN,TOTAL 1.1 mg/dL (0.2-1.0); CREATININE 1.56 mg/dL (0.7-1.3)
[2020-10-31] MEDS ORDERED: DEXTROSE 50%, 50ML SYRINGE ONE (03:39)
[2020-10-31] MEDS ORDERED: DEXTROSE 50%, 50ML SYRINGE IVPush STA (03:46)
[2020-10-31 04:00] LABS: MD YES
[2020-10-31 04:02] LABS: <PLATELET ESTIMATE> INCREASED; <PLT MORPHOLOGY> NORMAL PLT MORPH; BAND#(MANUAL) 10.88 x10^3/uL; BANDS%(MANUAL) 37 % (0-7); MONOS#(MANUAL) 0.29 x10^3/uL (0.3-2.7); MONOS% (MANUAL) 1 % (2-9); SEG#(MANUAL) 18.23 x10^3/uL (1.8-6.8); SEGS% (MANUAL) 62 % (42-75)
[2020-10-31 04:19] LABS: ANISOCYTOSIS 1+; MICROCYTOSIS 1+; POLYCHROMASIA 1+
[2020-10-31] MEDS: PIPERACILLIN/TAZO/PMX 3.375GM 50 ML IV SCH ×3 (05:49→18:53)
[2020-10-31] MEDS: SENNA/DOCUSATE TABLET PO SCH (07:44)
[2020-10-31] MEDS: SODIUM CHLORIDE 0.9% 1,000 ML IV SCH (07:44)
[2020-10-31 08:49] VITALS: BP 112/44
[2020-10-31] MEDS: D5%-0.45% NACL 1,000 ML IV SCH ×2 (08:57→20:00)
[2020-10-31 09:13] VITALS: BP 117/53
[2020-10-31] MEDS: MAGNESIUM SULFATE 1 GM, THIAMINE 200 MG, FOLIC ACID 1 MG in SODIUM CHLORIDE 0.9% 1,000 ML IV SCH (10:05)
[2020-10-31] MEDS: ENOXAPARIN 40 MG/0.4 ML SQ SCH (10:06)
[2020-10-31 11:23] VITALS: BP 122/43
[2020-10-31 12:27] VITALS: BP 123/75
[2020-10-31] MEDS: ACETAMINOPHEN 325 MG TABLET PO PRN (20:45)
[2020-10-31] MEDS ORDERED: PERMETHRIN CRM 5%, 60GM TP ONE (21:00)
[2020-10-31] MEDS ORDERED: PIPERONYL BUTOXIDE/PYRETHRINS 4OZ. SHAMPOO TP SCH (21:00)
[2020-11-01] MEDS: PIPERACILLIN/TAZO/PMX 3.375GM 50 ML IV SCH ×4 (01:23→17:50)
[2020-11-01] MEDS: OXYcodone IR 5MG TABLET PO PRN ×2 (01:24→12:54)
[2020-11-01 04:55] LABS: MEAN CORPUSCULAR HEMOGLOBIN 24.2 pg (27.5-34.5); MEAN CORPUSCULAR HGB CONC 31.6 g/dL (33.2-36.2); MEAN PLATELET VOLUME 7.2 fL (7.4-10.4); PLATELET COUNT 329 x10^3/uL (130-400); RED BLOOD COUNT 3.12 x10^6/uL (4.38-5.82)
[2020-11-01 04:58] LABS: MD YES
[2020-11-01 05:04] LABS: ALANINE AMINOTRANSFERASE 42 U/L (12-78); ALBUMIN 1.4 g/dL (3.4-5.0); ANION GAP 9 mmol/L (5-15); CALCIUM 7.6 mg/dL (8.5-10.1); CHLORIDE 127 mmol/L (98-107); CREATININE 1.86 mg/dL (0.7-1.3)
[2020-11-01 05:07] LABS: ALKALINE PHOSPHATASE 70 U/L (45-117); BILIRUBIN,TOTAL 0.5 mg/dL (0.2-1.0); CREATINE KINASE, TOTAL 136 U/L (39-308); TOTAL PROTEIN 6.2 g/dL (6.4-8.2)
[2020-11-01 05:56] LABS: BAND#(MANUAL) 18.16 x10^3/uL; BANDS%(MANUAL) 41 % (0-7); LYMPH#(MANUAL) 0.44 x10^3/uL (1-3.4); LYMPHS% (MANUAL) 1 % (22-44); METAMYELOCYTES# (MANUAL) 1.77 x10^3/uL (0-0); METAMYELOCYTES% (MANUAL) 4 % (0-1); MONOS#(MANUAL) 0.89 x10^3/uL (0.3-2.7); MONOS% (MANUAL) 2 % (2-9); SEG#(MANUAL) 23.04 x10^3/uL (1.8-6.8); SEGS% (MANUAL) 52 % (42-75)
[2020-11-01 05:57] LABS: ANISOCYTOSIS 1+; MICROCYTOSIS 1+
[2020-11-01 05:58] LABS: HYPOCHROMIA 1+; POLYCHROMASIA 1+
[2020-11-01 05:59] LABS: <PLATELET ESTIMATE> ADEQUATE
[2020-11-01 06:00] LABS: OVALOCYTES 1+
[2020-11-01 06:02] LABS: <PLT MORPHOLOGY> NORMAL PLT MORPH; ECHINOCYTES 1+
[2020-11-01] MEDS ORDERED: SODIUM PHOSPHATE 10 MMOL in SODIUM CHLORIDE 0.9% 500 ML IV ONE (07:00)
[2020-11-01] MEDS ORDERED: POTASSIUM CHLORIDE 40 MEQ in SODIUM CHLORIDE 0.9% 100 ML IV ONE (07:00)
[2020-11-01 07:31] LABS: FIO2 ROOM AIR %
[2020-11-01] MEDS: SENNA/DOCUSATE TABLET PO SCH (07:52)
[2020-11-01] MEDS: MAGNESIUM SULFATE 1 GM, THIAMINE 200 MG, FOLIC ACID 1 MG in SODIUM CHLORIDE 0.9% 1,000 ML IV SCH (09:08)
[2020-11-01] MEDS: ENOXAPARIN 40 MG/0.4 ML SQ SCH (12:09)
[2020-11-01] MEDS: CLINDAMYCIN PMX 900MG/50ML 50 ML IV SCH ×2 (15:36→22:42)
[2020-11-01] MEDS: LORazepam 2 MG/ML, 1ML IVPush PRN ×2 (17:51→20:18)
[2020-11-01] MEDS: D5%-0.45% NACL 1,000 ML IV SCH (18:41)
[2020-11-02] MEDS: PIPERACILLIN/TAZO/PMX 3.375GM 50 ML IV SCH ×3 (00:35→11:29)
[2020-11-02] MEDS: LORazepam 2 MG/ML, 1ML IVPush PRN (00:48)
[2020-11-02 04:53] LABS: ALBUMIN 1.3 g/dL (3.4-5.0); ANION GAP 8 mmol/L (5-15); CALCIUM 7.5 mg/dL (8.5-10.1); CHLORIDE 127 mmol/L (98-107)
[2020-11-02 04:55] LABS: MEAN CORPUSCULAR HEMOGLOBIN 23.9 pg (27.5-34.5); MEAN CORPUSCULAR HGB CONC 31.1 g/dL (33.2-36.2); MEAN PLATELET VOLUME 7.5 fL (7.4-10.4); PLATELET COUNT 350 x10^3/uL (130-400); RED BLOOD COUNT 3.33 x10^6/uL (4.38-5.82); RED CELL DISTRIBUTION WIDTH 22.9 % (9.4-14.8)
[2020-11-02 04:57] LABS: ALANINE AMINOTRANSFERASE 34 U/L (12-78); ALKALINE PHOSPHATASE 90 U/L (45-117); BILIRUBIN,TOTAL 0.5 mg/dL (0.2-1.0); CREATININE 1.71 mg/dL (0.7-1.3); TOTAL PROTEIN 6.8 g/dL (6.4-8.2)
[2020-11-02 05:48] LABS: MD YES
[2020-11-02 05:49] LABS: BANDS%(MANUAL) 13 % (0-7); EOS#(MANUAL) 0.33 x10^3/uL (0.0-0.4); EOS% (MANUAL) 1 % (1-7); LYMPH#(MANUAL) 0.33 x10^3/uL (1-3.4); LYMPHS% (MANUAL) 1 % (22-44); MONOS#(MANUAL) 0.99 x10^3/uL (0.3-2.7); MONOS% (MANUAL) 3 % (2-9); SEG#(MANUAL) 27.14 x10^3/uL (1.8-6.8); SEGS% (MANUAL) 82 % (42-75)
[2020-11-02 05:51] LABS: <PLATELET ESTIMATE> ADEQUATE; <PLT MORPHOLOGY> NORMAL PLT MORPH; ANISOCYTOSIS 1+; HYPOCHROMIA 1+; MICROCYTOSIS 1+; OVALOCYTES 1+; POLYCHROMASIA 1+
[2020-11-02] MEDS: D5%-0.45% NACL 1,000 ML IV SCH (05:57)
[2020-11-02] MEDS: NOREPINEPHRINE 8 MG in SODIUM CHLORIDE 0.9% 242 ML IV PRN (05:58)
[2020-11-02] MEDS: CLINDAMYCIN PMX 900MG/50ML 50 ML IV SCH ×2 (06:00→14:28)
[2020-11-02] MEDS: SENNA/DOCUSATE TABLET PO SCH (08:00)
[2020-11-02] MEDS: MAGNESIUM SULFATE 1 GM, THIAMINE 200 MG, FOLIC ACID 1 MG in SODIUM CHLORIDE 0.9% 1,000 ML IV SCH (08:00)
[2020-11-02] MEDS: THIAMINE 100MG TABLET NG SCH (08:50)
[2020-11-02] MEDS: FOLIC ACID 1 MG TABLET NG SCH (08:50)
[2020-11-02] MEDS: MULTIVIT.W/IRON, MINERALS ORAL SOL NG SCH (08:50)
[2020-11-02] MEDS: ENOXAPARIN 40 MG/0.4 ML SQ SCH (11:29)
[2020-11-02] MEDS ORDERED: AMPICILLIN/SULBACTAM 3 GM in SODIUM CHLORIDE 0.9% 100 ML IV SCH (15:30)
[2020-11-02] MEDS: AMPICILLIN/SULBACTAM 3 GM in SODIUM CHLORIDE 0.9% 100 ML IV SCH ×2 (15:34→21:22)
[2020-11-02] MEDS: D5%-0.45NACL+KCL 20MEQ 1,000 ML IV SCH (15:48)
[2020-11-03] MEDS: AMPICILLIN/SULBACTAM 3 GM in SODIUM CHLORIDE 0.9% 100 ML IV SCH ×4 (03:06→21:38)
[2020-11-03] MEDS: OXYcodone IR 5MG TABLET PO PRN ×3 (03:40→23:04)
[2020-11-03 06:19] LABS: BASOPHILS % (AUTO) 0 % (0-1); EOSINOPHILS % (AUTO) 1 % (1-7); LYMPHOCYTES % (AUTO) 7 % (22-44); MEAN CORPUSCULAR HEMOGLOBIN 24.2 pg (27.5-34.5); MEAN CORPUSCULAR HGB CONC 31.9 g/dL (33.2-36.2); MEAN PLATELET VOLUME 7.1 fL (7.4-10.4); MONOCYTES % (AUTO) 4 % (2-9); NEUTROPHILS % (AUTO) 87 % (42-75); PLATELET COUNT 292 x10^3/uL (130-400); RED BLOOD COUNT 3.22 x10^6/uL (4.38-5.82); RED CELL DISTRIBUTION WIDTH 23.2 % (9.4-14.8)
[2020-11-03 06:31] LABS: ALANINE AMINOTRANSFERASE 29 U/L (12-78); ALBUMIN 1.3 g/dL (3.4-5.0); ANION GAP 8 mmol/L (5-15); CALCIUM 7.9 mg/dL (8.5-10.1); CHLORIDE 134 mmol/L (98-107); CREATININE 1.61 mg/dL (0.7-1.3)
[2020-11-03 06:33] LABS: ALKALINE PHOSPHATASE 91 U/L (45-117); BILIRUBIN,TOTAL 0.4 mg/dL (0.2-1.0); CREATINE KINASE, TOTAL 153 U/L (39-308); TOTAL PROTEIN 7.1 g/dL (6.4-8.2)
[2020-11-03 06:51] LABS: MD SCAN
[2020-11-03] MEDS: D5%-0.45NACL+KCL 20MEQ 1,000 ML IV SCH ×2 (06:58→21:39)
[2020-11-03] MEDS: MULTIVIT.W/IRON, MINERALS ORAL SOL NG SCH (10:00)
[2020-11-03] MEDS: FOLIC ACID 1 MG TABLET NG SCH (10:00)
[2020-11-03] MEDS: THIAMINE 100MG TABLET NG SCH (10:00)
[2020-11-03] MEDS: ENOXAPARIN 40 MG/0.4 ML SQ SCH (11:27)
[2020-11-03] MEDS: BACITRACIN OINT 500U/GM, 28GM TP SCH (12:00)
[2020-11-03 17:20] LABS: ANION GAP 6 mmol/L (5-15); CALCIUM 7.7 mg/dL (8.5-10.1); CHLORIDE 135 mmol/L (98-107); CREATININE 1.46 mg/dL (0.7-1.3)
[2020-11-04] MEDS: AMPICILLIN/SULBACTAM 3 GM in SODIUM CHLORIDE 0.9% 100 ML IV SCH ×4 (04:25→21:22)
[2020-11-04 08:43] LABS: MEAN CORPUSCULAR HEMOGLOBIN 24.9 pg (27.5-34.5); MEAN CORPUSCULAR HGB CONC 32.1 g/dL (33.2-36.2); MEAN PLATELET VOLUME 7.6 fL (7.4-10.4); PLATELET COUNT 243 x10^3/uL (130-400); RED CELL DISTRIBUTION WIDTH 23.2 % (9.4-14.8)
[2020-11-04 08:53] LABS: ALANINE AMINOTRANSFERASE 23 U/L (12-78); ALBUMIN 1.2 g/dL (3.4-5.0); ANION GAP 6 mmol/L (5-15); CALCIUM 7.9 mg/dL (8.5-10.1); CHLORIDE 136 mmol/L (98-107); CREATININE 1.45 mg/dL (0.7-1.3)
[2020-11-04 08:56] LABS: ALKALINE PHOSPHATASE 104 U/L (45-117); BILIRUBIN,TOTAL 0.3 mg/dL (0.2-1.0); TOTAL PROTEIN 7.4 g/dL (6.4-8.2)
[2020-11-04 09:28] LABS: MD YES
[2020-11-04] MEDS ORDERED: DEXTROSE 5% 1,000 ML IV SCH (09:30)
[2020-11-04] MEDS ORDERED: FUROSEMIDE 20 MG/2 ML IV ONE (09:30)
[2020-11-04] MEDS: FOLIC ACID 1 MG TABLET NG SCH (09:31)
[2020-11-04] MEDS: THIAMINE 100MG TABLET NG SCH (09:31)
[2020-11-04 09:32] LABS: EOS#(MANUAL) 0.23 x10^3/uL (0.0-0.4); EOS% (MANUAL) 2 % (1-7); LYMPH#(MANUAL) 1.84 x10^3/uL (1-3.4); LYMPHS% (MANUAL) 16 % (22-44); MONOS#(MANUAL) 0.81 x10^3/uL (0.3-2.7); MONOS% (MANUAL) 7 % (2-9); SEG#(MANUAL) 8.63 x10^3/uL (1.8-6.8); SEGS% (MANUAL) 75 % (42-75)
[2020-11-04] MEDS: MULTIVIT.W/IRON, MINERALS ORAL SOL NG SCH (09:32)
[2020-11-04 09:33] LABS: <PLATELET ESTIMATE> ADEQUATE; <PLT MORPHOLOGY> NORMAL PLT MORPH; ANISOCYTOSIS 1+; HYPOCHROMIA 1+; MICROCYTOSIS 1+; OVALOCYTES 1+; POLYCHROMASIA 1+
[2020-11-04] MEDS: BACITRACIN OINT 500U/GM, 28GM TP SCH (10:17)
[2020-11-04] MEDS: ENOXAPARIN 40 MG/0.4 ML SQ SCH (14:26)
[2020-11-04] MEDS: OXYcodone IR 5MG TABLET PO PRN (21:17)
[2020-11-05] MEDS: DEXTROSE 5% 1,000 ML IV SCH ×3 (00:35→22:38)
[2020-11-05] MEDS: AMPICILLIN IV SCH ×4 (03:44→22:38)
[2020-11-05] MEDS: SULBACTAM IV SCH ×4 (03:44→22:38)
[2020-11-05] MEDS: DEXTROSE 5% IV SCH ×4 (03:44→22:38)
[2020-11-05] MEDS: OXYcodone IR 5MG TABLET PO PRN ×2 (03:47→20:02)
[2020-11-05 04:24] LABS: ALANINE AMINOTRANSFERASE 20 U/L (12-78); ALBUMIN 1.3 g/dL (3.4-5.0); ANION GAP 5 mmol/L (5-15); CALCIUM 8.3 mg/dL (8.5-10.1); CHLORIDE 131 mmol/L (98-107); CREATININE 1.32 mg/dL (0.7-1.3)
[2020-11-05 04:26] LABS: BASOPHILS % (AUTO) 0 % (0-1); EOSINOPHILS % (AUTO) 4 % (1-7); LYMPHOCYTES % (AUTO) 11 % (22-44); MEAN CORPUSCULAR HEMOGLOBIN 24.3 pg (27.5-34.5); MEAN CORPUSCULAR HGB CONC 31.4 g/dL (33.2-36.2); MEAN PLATELET VOLUME 7.4 fL (7.4-10.4); MONOCYTES % (AUTO) 6 % (2-9); NEUTROPHILS % (AUTO) 79 % (42-75); PLATELET COUNT 208 x10^3/uL (130-400); RED BLOOD COUNT 3.29 x10^6/uL (4.38-5.82); RED CELL DISTRIBUTION WIDTH 23.6 % (9.4-14.8)
[2020-11-05 04:27] LABS: ALKALINE PHOSPHATASE 101 U/L (45-117); BILIRUBIN,TOTAL 0.4 mg/dL (0.2-1.0); TOTAL PROTEIN 7.9 g/dL (6.4-8.2)
[2020-11-05 05:48] LABS: MD SCAN
[2020-11-05] MEDS: FOLIC ACID 1 MG TABLET NG SCH (09:24)
[2020-11-05] MEDS: THIAMINE 100MG TABLET NG SCH (09:25)
[2020-11-05] MEDS: MULTIVIT.W/IRON, MINERALS ORAL SOL NG SCH (09:25)
[2020-11-05] MEDS: BACITRACIN OINT 500U/GM, 28GM TP SCH (11:00)
[2020-11-05] MEDS: ENOXAPARIN 40 MG/0.4 ML SQ SCH (13:34)
[2020-11-06] MEDS: OXYcodone IR 5MG TABLET PO PRN (00:48)
[2020-11-06 04:40] LABS: BASOPHILS % (AUTO) 0 % (0-1); EOSINOPHILS % (AUTO) 3 % (1-7); LYMPHOCYTES % (AUTO) 15 % (22-44); MEAN CORPUSCULAR HEMOGLOBIN 24.2 pg (27.5-34.5); MEAN CORPUSCULAR HGB CONC 31.6 g/dL (33.2-36.2); MEAN PLATELET VOLUME 7.9 fL (7.4-10.4); MONOCYTES % (AUTO) 5 % (2-9); NEUTROPHILS % (AUTO) 77 % (42-75); PLATELET COUNT 144 x10^3/uL (130-400); RED CELL DISTRIBUTION WIDTH 24.6 % (9.4-14.8)
[2020-11-06 04:47] LABS: ALANINE AMINOTRANSFERASE 14 U/L (12-78); ALBUMIN 1.1 g/dL (3.4-5.0); CALCIUM 7.8 mg/dL (8.5-10.1); CHLORIDE 124 mmol/L (98-107)
[2020-11-06 04:50] LABS: ALKALINE PHOSPHATASE 87 U/L (45-117); BILIRUBIN,TOTAL 0.4 mg/dL (0.2-1.0); CREATININE 1.27 mg/dL (0.7-1.3); TOTAL PROTEIN 7.5 g/dL (6.4-8.2)
[2020-11-06 04:56] LABS: ANION GAP 5 mmol/L (5-15)
[2020-11-06] MEDS: AMPICILLIN IV SCH ×4 (05:06→22:34)
[2020-11-06] MEDS: DEXTROSE 5% IV SCH ×4 (05:06→22:34)
[2020-11-06] MEDS: SULBACTAM IV SCH ×4 (05:06→22:34)
[2020-11-06 05:48] LABS: MD SCAN
[2020-11-06] MEDS: THIAMINE 100MG TABLET NG SCH (08:54)
[2020-11-06] MEDS: MULTIVIT.W/IRON, MINERALS ORAL SOL NG SCH (08:54)
[2020-11-06] MEDS: FOLIC ACID 1 MG TABLET NG SCH (08:54)
[2020-11-06] MEDS: BACITRACIN OINT 500U/GM, 28GM TP SCH (08:56)
[2020-11-06] MEDS: ENOXAPARIN 40 MG/0.4 ML SQ SCH (10:55)
[2020-11-06] MEDS: DEXTROSE 5% 1,000 ML IV SCH (16:00)
[2020-11-06 17:04] VITALS: BP 138/77
[2020-11-06] MEDS ORDERED: MAGNESIUM SULFATE PMX 2GM/50ML 50 ML IV ONE (17:30)
[2020-11-06] MEDS: METOPROLOL TARTRATE 25 MG TAB PO SCH (17:34)
[2020-11-06 20:00] VITALS: BP 157/72
[2020-11-07 00:56] VITALS: BP 142/72
[2020-11-07] MEDS: DEXTROSE 5% 1,000 ML IV SCH ×3 (04:00→21:44)
[2020-11-07 04:56] LABS: BASOPHILS % (AUTO) 0 % (0-1); EOSINOPHILS % (AUTO) 2 % (1-7); LYMPHOCYTES % (AUTO) 13 % (22-44); MEAN CORPUSCULAR HEMOGLOBIN 24.1 pg (27.5-34.5); MEAN CORPUSCULAR HGB CONC 31.6 g/dL (33.2-36.2); MEAN PLATELET VOLUME 8.5 fL (7.4-10.4); MONOCYTES % (AUTO) 3 % (2-9); NEUTROPHILS % (AUTO) 82 % (42-75); PLATELET COUNT 123 x10^3/uL (130-400); RED BLOOD COUNT 3.15 x10^6/uL (4.38-5.82); RED CELL DISTRIBUTION WIDTH 24.4 % (9.4-14.8)
[2020-11-07] MEDS: DEXTROSE 5% IV SCH ×4 (05:00→23:18)
[2020-11-07] MEDS: AMPICILLIN IV SCH ×4 (05:00→23:18)
[2020-11-07] MEDS: SULBACTAM IV SCH ×4 (05:00→23:18)
[2020-11-07 05:09] LABS: ANION GAP 9 mmol/L (5-15); CALCIUM 7.7 mg/dL (8.5-10.1); CHLORIDE 124 mmol/L (98-107)
[2020-11-07 05:38] LABS: MD SCAN
[2020-11-07] MEDS: METOPROLOL TARTRATE 25 MG TAB PO SCH ×2 (05:55→17:19)
[2020-11-07 07:04] VITALS: BP 136/75
[2020-11-07] MEDS: MULTIVIT.W/IRON, MINERALS ORAL SOL NG SCH (09:00)
[2020-11-07] MEDS: THIAMINE 100MG TABLET NG SCH (09:01)
[2020-11-07] MEDS: FERROUS SULFATE 325 MG TABLET PO SCH ×2 (09:01→17:19)
[2020-11-07] MEDS: BACITRACIN OINT 500U/GM, 28GM TP SCH (09:01)
[2020-11-07] MEDS: FOLIC ACID 1 MG TABLET NG SCH (09:01)
[2020-11-07] MEDS: LACTOBACILLUS CHEW TABLET PO SCH ×3 (12:53→21:35)
[2020-11-07] MEDS: ENOXAPARIN 40 MG/0.4 ML SQ SCH (12:54)
[2020-11-07 18:54] VITALS: BP 152/76
[2020-11-07] MEDS ORDERED: PIPERONYL BUTOXIDE/PYRETHRINS 4OZ. SHAMPOO TP ONE (23:00)
[2020-11-08 03:59] VITALS: BP 146/74
[2020-11-08 05:12] LABS: ANION GAP 7 mmol/L (5-15); CHLORIDE 126 mmol/L (98-107); CREATININE 1.14 mg/dL (0.7-1.3)
[2020-11-08 05:17] LABS: BASOPHILS % (AUTO) 0 % (0-1); EOSINOPHILS % (AUTO) 2 % (1-7); LYMPHOCYTES % (AUTO) 13 % (22-44); MEAN CORPUSCULAR HEMOGLOBIN 24.1 pg (27.5-34.5); MEAN CORPUSCULAR HGB CONC 31.5 g/dL (33.2-36.2); MEAN PLATELET VOLUME 9.9 fL (7.4-10.4); MONOCYTES % (AUTO) 3 % (2-9); NEUTROPHILS % (AUTO) 81 % (42-75); PLATELET COUNT 115 x10^3/uL (130-400); RED BLOOD COUNT 3.17 x10^6/uL (4.38-5.82); RED CELL DISTRIBUTION WIDTH 24.4 % (9.4-14.8)
[2020-11-08 05:18] LABS: MD NO
[2020-11-08 05:50] VITALS: BP 149/81
[2020-11-08] MEDS: METOPROLOL TARTRATE 25 MG TAB PO SCH ×2 (05:51→18:11)
[2020-11-08] MEDS: LACTOBACILLUS CHEW TABLET PO SCH ×4 (05:51→20:09)
[2020-11-08] MEDS: DEXTROSE 5% IV SCH ×4 (05:52→23:30)
[2020-11-08] MEDS: AMPICILLIN IV SCH ×4 (05:52→23:30)
[2020-11-08] MEDS: SULBACTAM IV SCH ×4 (05:52→23:30)
[2020-11-08] MEDS: DEXTROSE 5% 1,000 ML IV SCH ×2 (05:55→16:10)
[2020-11-08] MEDS ORDERED: EPINEPHRINE 1 MG/ML, 1ML IM PRN (08:30)
[2020-11-08] MEDS ORDERED: IRON DEXTRAN COMPLEX 25 MG in SODIUM CHLORIDE 0.9% 50 ML IV ONE (08:30)
[2020-11-08 09:11] VITALS: BP 134/68
[2020-11-08] MEDS: MULTIVIT.W/IRON, MINERALS ORAL SOL NG SCH (09:17)
[2020-11-08] MEDS: FOLIC ACID 1 MG TABLET NG SCH (09:17)
[2020-11-08] MEDS: FERROUS SULFATE 325 MG TABLET PO SCH ×2 (09:17→16:10)
[2020-11-08] MEDS: THIAMINE 100MG TABLET NG SCH (09:17)
[2020-11-08] MEDS ORDERED: IRON DEXTRAN COMPLEX 1,800 MG in SODIUM CHLORIDE 0.9% 250 ML IV ONE (11:00)
[2020-11-08] MEDS: BACITRACIN OINT 500U/GM, 28GM TP SCH (11:23)
[2020-11-08 12:15] LABS: OCCULT BLOOD NEGATIVE (NEGATIVE)
[2020-11-08 12:17] VITALS: BP 153/80
[2020-11-08] MEDS: ENOXAPARIN 40 MG/0.4 ML SQ SCH (12:49)
[2020-11-08 13:13] LABS: OCCULT BLOOD NEGATIVE (NEGATIVE)
[2020-11-08] MEDS: POTASSIUM CHLORIDE 20 MEQ PACKET PO SCH (18:11)
[2020-11-08 20:06] VITALS: BP 115/63
[2020-11-09] MEDS: DEXTROSE 5% 1,000 ML IV SCH ×3 (01:54→20:22)
[2020-11-09 01:57] VITALS: BP 115/67
[2020-11-09 05:01] LABS: ANION GAP 8 mmol/L (5-15); CALCIUM 7.5 mg/dL (8.5-10.1); CHLORIDE 118 mmol/L (98-107)
[2020-11-09 05:03] LABS: CREATININE 0.99 mg/dL (0.7-1.3)
[2020-11-09 05:34] VITALS: BP 137/72
[2020-11-09] MEDS: DEXTROSE 5% IV SCH (05:36)
[2020-11-09] MEDS: AMPICILLIN IV SCH (05:36)
[2020-11-09] MEDS: LACTOBACILLUS CHEW TABLET PO SCH ×4 (05:36→20:21)
[2020-11-09] MEDS: SULBACTAM IV SCH (05:36)
[2020-11-09] MEDS: METOPROLOL TARTRATE 25 MG TAB PO SCH ×2 (05:36→18:09)
[2020-11-09 07:05] VITALS: BP 134/78
[2020-11-09] MEDS: FOLIC ACID 1 MG TABLET NG SCH (08:30)
[2020-11-09] MEDS: MULTIVIT.W/IRON, MINERALS ORAL SOL NG SCH (08:30)
[2020-11-09] MEDS: FERROUS SULFATE 325 MG TABLET PO SCH ×2 (08:30→18:09)
[2020-11-09] MEDS: POTASSIUM CHLORIDE 20 MEQ PACKET PO SCH ×4 (08:30→20:21)
[2020-11-09] MEDS: THIAMINE 100MG TABLET NG SCH (08:30)
[2020-11-09] MEDS: BACITRACIN OINT 500U/GM, 28GM TP SCH (08:31)
[2020-11-09] MEDS: DAPTOMYCIN 500 MG in SODIUM CHLORIDE 0.9% 100 ML IV SCH (10:56)
[2020-11-09] MEDS: ENOXAPARIN 40 MG/0.4 ML SQ SCH (11:23)
[2020-11-09 14:00] VITALS: BP 158/82
--- NOTE | 2020-11-09 14:11 | NUR ---
11/09 - Green Activity sheet placed: With Staff and Elena alvarado 1 and FWW: Up to chair for meals. Use commode chair for toileting needs. Addendum: 11/09/20 at 1417 by ISAK STONE PT Amended: Links added.
[2020-11-09 19:22] VITALS: BP 131/73
[2020-11-10 01:10] VITALS: BP 148/82
[2020-11-10] MEDS: DEXTROSE 5% 1,000 ML IV SCH (04:36)
[2020-11-10 04:43] LABS: BASOPHILS % (AUTO) 1 % (0-1); EOSINOPHILS % (AUTO) 3 % (1-7); LYMPHOCYTES % (AUTO) 19 % (22-44); MEAN CORPUSCULAR HEMOGLOBIN 24.6 pg (27.5-34.5); MEAN CORPUSCULAR HGB CONC 31.7 g/dL (33.2-36.2); MEAN PLATELET VOLUME 10.1 fL (7.4-10.4); MONOCYTES % (AUTO) 3 % (2-9); NEUTROPHILS % (AUTO) 74 % (42-75); PLATELET COUNT 122 x10^3/uL (130-400); RED BLOOD COUNT 3.18 x10^6/uL (4.38-5.82); RED CELL DISTRIBUTION WIDTH 24.3 % (9.4-14.8)
[2020-11-10 04:55] LABS: ANION GAP 4 mmol/L (5-15); CHLORIDE 116 mmol/L (98-107); CREATININE 0.82 mg/dL (0.7-1.3)
[2020-11-10 05:47] LABS: MD SCAN
[2020-11-10] MEDS: LACTOBACILLUS CHEW TABLET PO SCH ×4 (06:09→19:51)
[2020-11-10] MEDS: METOPROLOL TARTRATE 25 MG TAB PO SCH ×2 (06:09→18:14)
[2020-11-10 06:10] VITALS: BP 132/84
[2020-11-10 07:17] VITALS: BP 134/85
[2020-11-10] MEDS: POTASSIUM CHLORIDE 20 MEQ PACKET PO SCH (08:20)
[2020-11-10] MEDS: THIAMINE 100MG TABLET NG SCH (08:21)
[2020-11-10] MEDS: FOLIC ACID 1 MG TABLET NG SCH (08:21)
[2020-11-10] MEDS: FERROUS SULFATE 325 MG TABLET PO SCH ×2 (08:21→18:14)
[2020-11-10] MEDS: BACITRACIN OINT 500U/GM, 28GM TP SCH (08:23)
[2020-11-10] MEDS: DAPTOMYCIN 500 MG in SODIUM CHLORIDE 0.9% 100 ML IV SCH (09:04)
[2020-11-10] MEDS: MULTIVIT.W/IRON, MINERALS ORAL SOL NG SCH (09:50)
[2020-11-10] MEDS: ENOXAPARIN 40 MG/0.4 ML SQ SCH (11:24)
[2020-11-10 14:26] VITALS: BP 135/66
[2020-11-10 20:53] VITALS: BP 107/67
[2020-11-11 01:22] VITALS: BP 110/67
[2020-11-11] MEDS ORDERED: OCTREOTIDE 500 MCG in SODIUM CHLORIDE 0.9% 99 ML IV PRN (01:30)
[2020-11-11 01:51] LABS: BASOPHILS % (AUTO) 1 % (0-1); EOSINOPHILS % (AUTO) 2 % (1-7); LYMPHOCYTES % (AUTO) 18 % (22-44); MEAN CORPUSCULAR HEMOGLOBIN 24.6 pg (27.5-34.5); MEAN CORPUSCULAR HGB CONC 31.8 g/dL (33.2-36.2); MEAN PLATELET VOLUME 9.2 fL (7.4-10.4); MONOCYTES % (AUTO) 4 % (2-9); NEUTROPHILS % (AUTO) 76 % (42-75); PLATELET COUNT 181 x10^3/uL (130-400); RED BLOOD COUNT 2.25 x10^6/uL (4.38-5.82); RED CELL DISTRIBUTION WIDTH 24.3 % (9.4-14.8)
[2020-11-11 01:59] LABS: ALANINE AMINOTRANSFERASE 9 U/L (12-78); ALBUMIN 1.1 g/dL (3.4-5.0); ANION GAP 8 mmol/L (5-15); CALCIUM 7.4 mg/dL (8.5-10.1); CHLORIDE 119 mmol/L (98-107); CREATININE 0.92 mg/dL (0.7-1.3)
[2020-11-11 02:00] LABS: INTERNATIONAL NORMALIZED RATIO 1.28 (0.93-1.1); PROTHROMBIN TIME 13.6 Seconds (9.6-11.5)
[2020-11-11 02:01] LABS: ALKALINE PHOSPHATASE 57 U/L (45-117); BILIRUBIN,TOTAL 0.2 mg/dL (0.2-1.0)
[2020-11-11 02:02] LABS: MD NO
[2020-11-11] MEDS: PANTOPRAZOLE 80 MG in SODIUM CHLORIDE 0.9% 100 ML IV SCH ×2 (02:07→13:49)
[2020-11-11 03:07] VITALS: BP 125/68
[2020-11-11 05:51] LABS: MEAN CORPUSCULAR HGB CONC 31.9 g/dL (33.2-36.2); MEAN PLATELET VOLUME 9.3 fL (7.4-10.4); PLATELET COUNT 182 x10^3/uL (130-400); RED BLOOD COUNT 2.08 x10^6/uL (4.38-5.82); RED CELL DISTRIBUTION WIDTH 24.4 % (9.4-14.8)
[2020-11-11 05:52] LABS: CHLORIDE 117 mmol/L (98-107)
[2020-11-11] MEDS: METOPROLOL TARTRATE 25 MG TAB PO SCH ×2 (06:00→18:14)
[2020-11-11] MEDS: LACTOBACILLUS CHEW TABLET PO SCH ×4 (06:00→20:59)
[2020-11-11 06:01] LABS: ANION GAP 8 mmol/L (5-15); CALCIUM 7.5 mg/dL (8.5-10.1); CREATININE 0.86 mg/dL (0.7-1.3)
[2020-11-11 06:25] LABS: ANISOCYTOSIS 2+; HYPOCHROMIA 1+; MD MORPH REVIEW ONLY; MICROCYTOSIS 1+; POLYCHROMASIA 1+
[2020-11-11 06:26] LABS: OVALOCYTES 1+
[2020-11-11 06:28] LABS: <PLATELET ESTIMATE> ADEQUATE; <PLT MORPHOLOGY> NORMAL PLT MORPH
[2020-11-11 07:11] VITALS: BP 100/61
[2020-11-11] MEDS: FERROUS SULFATE 325 MG TABLET PO SCH ×2 (08:00→18:15)
[2020-11-11] MEDS: MULTIVIT.W/IRON, MINERALS ORAL SOL NG SCH (09:00)
[2020-11-11] MEDS: FOLIC ACID 1 MG TABLET NG SCH (09:00)
[2020-11-11] MEDS: THIAMINE 100MG TABLET NG SCH (09:00)
[2020-11-11] MEDS: DEXTROSE 5% 1,000 ML IV SCH ×2 (11:05→22:36)
[2020-11-11] MEDS ORDERED: MIDAZOLAM 1 MG/ML, 2ML ONE (12:06)
[2020-11-11] MEDS ORDERED: PROPOFOL 10 MG/ML, 20ML ONE (12:14)
[2020-11-11] MEDS ORDERED: LABETALOL 5MG/ML, 20ML IV PRN (12:30)
[2020-11-11] MEDS ORDERED: HYDROmorphone 2 MG/ML, 1ML IVPush PRN (12:30)
[2020-11-11] MEDS ORDERED: hydrALAzine 20 MG/ML, 1ML IV PRN (12:30)
[2020-11-11] MEDS ORDERED: ALBUTEROL SULFATE 2.5 MG/3 ML NPPB PRN (12:30)
[2020-11-11] MEDS ORDERED: FENTANYL PF 100 MCG/2ML IV PRN (12:30)
[2020-11-11] MEDS ORDERED: ACETAMINOPHEN 325 MG TABLET PO PRN (12:30)
[2020-11-11] MEDS ORDERED: MEPERIDINE/PF 25MG/0.5ML IVPush PRN (12:30)
[2020-11-11] MEDS ORDERED: OXYcodone 5 MG/5 ML ORAL.SOL UDC PO PRN (12:30)
[2020-11-11] MEDS ORDERED: DIAZEPAM 5 MG/ML, 2ML IVPush PRN (12:30)
[2020-11-11] MEDS ORDERED: PROMETHAZINE 25 MG/ML, 1ML IV PRN (12:30)
[2020-11-11] MEDS ORDERED: ONDANSETRON 2MG/ML, 2ML ONE (12:57)
[2020-11-11] MEDS ORDERED: EPINEPHRINE SYRINGE 0.1 MG/ML, 10ML ONE (13:22)
[2020-11-11] MEDS ORDERED: ONDANSETRON 2MG/ML, 2ML IVPush ONE (13:30)
[2020-11-11 13:44] VITALS: BP 114/58
[2020-11-11] MEDS: DAPTOMYCIN 500 MG in SODIUM CHLORIDE 0.9% 100 ML IV SCH (13:49)
[2020-11-11 19:51] VITALS: BP 111/56
[2020-11-12] MEDS: PANTOPRAZOLE 80 MG in SODIUM CHLORIDE 0.9% 100 ML IV SCH ×3 (00:34→21:07)
[2020-11-12 00:44] VITALS: BP 114/67
[2020-11-12] MEDS: METOPROLOL TARTRATE 25 MG TAB PO SCH ×2 (06:00→17:58)
[2020-11-12] MEDS: LACTOBACILLUS CHEW TABLET PO SCH ×4 (06:00→21:06)
[2020-11-12 06:22] LABS: ANION GAP 9 mmol/L (5-15); CALCIUM 7.4 mg/dL (8.5-10.1); CHLORIDE 115 mmol/L (98-107); CREATININE 0.96 mg/dL (0.7-1.3)
[2020-11-12 07:04] VITALS: BP 107/59
[2020-11-12] MEDS: LISINOPRIL 5 MG TABLET PO SCH (10:46)
[2020-11-12] MEDS: FOLIC ACID 1 MG TABLET NG SCH (10:46)
[2020-11-12] MEDS: MULTIVIT.W/IRON, MINERALS ORAL SOL NG SCH (10:46)
[2020-11-12] MEDS: IRON SUCROSE COMPLEX 100MG/5ML IV SCH (10:46)
[2020-11-12] MEDS: THIAMINE 100MG TABLET NG SCH (10:46)
[2020-11-12] MEDS: DEXTROSE 5% 1,000 ML IV SCH (11:27)
[2020-11-12 12:05] VITALS: BP 98/67
[2020-11-12] MEDS: DAPTOMYCIN 500 MG in SODIUM CHLORIDE 0.9% 100 ML IV SCH (15:21)
[2020-11-12 20:08] VITALS: BP 117/67
[2020-11-13 00:23] VITALS: BP 119/62
[2020-11-13] MEDS: DEXTROSE 5% 1,000 ML IV SCH ×2 (00:27→13:18)
[2020-11-13] MEDS: LACTOBACILLUS CHEW TABLET PO SCH ×4 (05:50→20:52)
[2020-11-13 05:51] VITALS: BP 120/61
[2020-11-13] MEDS: METOPROLOL TARTRATE 25 MG TAB PO SCH ×2 (05:51→17:05)
[2020-11-13 06:02] LABS: BASOPHILS % (AUTO) 1 % (0-1); EOSINOPHILS % (AUTO) 4 % (1-7); LYMPHOCYTES % (AUTO) 24 % (22-44); MEAN CORPUSCULAR HGB CONC 31.6 g/dL (33.2-36.2); MONOCYTES % (AUTO) 5 % (2-9); NEUTROPHILS % (AUTO) 67 % (42-75); PLATELET COUNT 249 x10^3/uL (130-400); RED BLOOD COUNT 1.74 x10^6/uL (4.38-5.82); RED CELL DISTRIBUTION WIDTH 25.5 % (9.4-14.8)
[2020-11-13 06:13] LABS: CHLORIDE 111 mmol/L (98-107)
[2020-11-13 06:22] LABS: ALANINE AMINOTRANSFERASE 10 U/L (12-78); ALBUMIN 1.3 g/dL (3.4-5.0); ALKALINE PHOSPHATASE 59 U/L (45-117); ANION GAP 7 mmol/L (5-15); BILIRUBIN,TOTAL 0.3 mg/dL (0.2-1.0); CALCIUM 7.5 mg/dL (8.5-10.1); CREATININE 0.95 mg/dL (0.7-1.3); TOTAL PROTEIN 7.2 g/dL (6.4-8.2)
[2020-11-13 06:43] VITALS: BP 120/67
[2020-11-13 06:50] LABS: MD MORPH REVIEW ONLY
[2020-11-13 06:51] LABS: <PLATELET ESTIMATE> ADEQUATE; <PLT MORPHOLOGY> NORMAL PLT MORPH; ANISOCYTOSIS 2+; HYPOCHROMIA 2+; MICROCYTOSIS 2+; OVALOCYTES 1+; POLYCHROMASIA 1+
[2020-11-13] MEDS ORDERED: POTASSIUM CHLORIDE 20 MEQ TAB.ER.PRT PO ONE (09:00)
[2020-11-13] MEDS: THIAMINE 100MG TABLET NG SCH (09:36)
[2020-11-13] MEDS: FOLIC ACID 1 MG TABLET NG SCH (09:37)
[2020-11-13] MEDS: LISINOPRIL 5 MG TABLET PO SCH (09:37)
[2020-11-13] MEDS: IRON SUCROSE COMPLEX 100MG/5ML IV SCH (09:37)
[2020-11-13] MEDS: PANTOPRAZOLE 80 MG in SODIUM CHLORIDE 0.9% 100 ML IV SCH ×2 (11:24→21:18)
[2020-11-13 12:20] VITALS: BP 130/78
[2020-11-13] MEDS: DAPTOMYCIN 500 MG in SODIUM CHLORIDE 0.9% 100 ML IV SCH (13:14)
[2020-11-13] MEDS: MULTIVIT.W/IRON, MINERALS ORAL SOL NG SCH (17:04)
[2020-11-13 20:17] VITALS: BP 120/67
[2020-11-14 00:30] VITALS: BP 128/72
[2020-11-14] MEDS: DEXTROSE 5% 1,000 ML IV SCH (02:05)
[2020-11-14] MEDS: METOPROLOL TARTRATE 25 MG TAB PO SCH ×2 (05:21→17:34)
[2020-11-14] MEDS: LACTOBACILLUS CHEW TABLET PO SCH ×4 (05:21→21:08)
[2020-11-14 06:03] LABS: ANION GAP 7 mmol/L (5-15); CALCIUM 7.3 mg/dL (8.5-10.1); CHLORIDE 110 mmol/L (98-107)
[2020-11-14 07:31] VITALS: BP 131/66
[2020-11-14 07:38] VITALS: BP 128/76
[2020-11-14] MEDS: OMEPRAZOLE 20 MG CAPSULE.DR PO SCH ×2 (10:06→17:34)
[2020-11-14] MEDS: THIAMINE 100MG TABLET NG SCH (10:06)
[2020-11-14] MEDS: LISINOPRIL 5 MG TABLET PO SCH (10:06)
[2020-11-14] MEDS: IRON SUCROSE COMPLEX 100MG/5ML IV SCH (10:07)
[2020-11-14] MEDS: FOLIC ACID 1 MG TABLET NG SCH (10:07)
[2020-11-14] MEDS: MULTIVIT.W/IRON, MINERALS ORAL SOL NG SCH (10:07)
[2020-11-14 12:43] VITALS: BP 137/69
[2020-11-14] MEDS: DAPTOMYCIN 500 MG in SODIUM CHLORIDE 0.9% 100 ML IV SCH (13:24)
[2020-11-14 20:12] VITALS: BP 151/73
[2020-11-14] MEDS: MELATONIN 5 MG TABLET PO PRN (22:24)
[2020-11-15] MEDS ORDERED: MAGNESIUM SULFATE PMX 2GM/50ML 50 ML ONE (00:26)
[2020-11-15] MEDS ORDERED: MAGNESIUM SULFATE PMX 2GM/50ML 50 ML IV ONE (00:30)
[2020-11-15 01:46] VITALS: BP 128/81
[2020-11-15 05:34] LABS: ALBUMIN 1.4 g/dL (3.4-5.0); ANION GAP 8 mmol/L (5-15); CALCIUM 7.6 mg/dL (8.5-10.1); CHLORIDE 110 mmol/L (98-107)
[2020-11-15 05:42] LABS: ALANINE AMINOTRANSFERASE 11 U/L (12-78); ALKALINE PHOSPHATASE 76 U/L (45-117); BILIRUBIN,TOTAL 0.2 mg/dL (0.2-1.0); CREATININE 0.81 mg/dL (0.7-1.3)
[2020-11-15] MEDS: OMEPRAZOLE 20 MG CAPSULE.DR PO SCH ×2 (05:58→17:41)
[2020-11-15] MEDS: METOPROLOL TARTRATE 25 MG TAB PO SCH ×2 (05:58→17:41)
[2020-11-15] MEDS: LACTOBACILLUS CHEW TABLET PO SCH ×4 (05:58→21:59)
[2020-11-15 06:37] LABS: BASOPHILS % (AUTO) 1 % (0-1); EOSINOPHILS % (AUTO) 4 % (1-7); LYMPHOCYTES % (AUTO) 28 % (22-44); MEAN CORPUSCULAR HEMOGLOBIN 26.4 pg (27.5-34.5); MEAN CORPUSCULAR HGB CONC 31.2 g/dL (33.2-36.2); MEAN PLATELET VOLUME 7.9 fL (7.4-10.4); MONOCYTES % (AUTO) 9 % (2-9); NEUTROPHILS % (AUTO) 58 % (42-75); RED CELL DISTRIBUTION WIDTH 31.5 % (9.4-14.8)
[2020-11-15 06:48] VITALS: BP 128/68
[2020-11-15 06:48] LABS: PLATELET COUNT 369 x10^3/uL (130-400); RED BLOOD COUNT 2.08 x10^6/uL (4.38-5.82)
[2020-11-15 07:32] LABS: MD SCAN
[2020-11-15] MEDS ORDERED: BACITRACIN OINT 500U/GM, 28GM TP ONE (09:00)
[2020-11-15] MEDS: THIAMINE 100MG TABLET NG SCH (10:08)
[2020-11-15] MEDS: IRON SUCROSE COMPLEX 100MG/5ML IV SCH (10:08)
[2020-11-15] MEDS: FOLIC ACID 1 MG TABLET NG SCH (10:08)
[2020-11-15] MEDS: LISINOPRIL 5 MG TABLET PO SCH (10:09)
[2020-11-15] MEDS: MULTIVIT.W/IRON, MINERALS ORAL SOL NG SCH (10:09)
[2020-11-15 12:53] VITALS: BP 137/74
[2020-11-15] MEDS: DAPTOMYCIN 500 MG in SODIUM CHLORIDE 0.9% 100 ML IV SCH (14:07)
[2020-11-15 17:45] VITALS: BP 149/77
[2020-11-15 19:45] VITALS: BP 141/74
[2020-11-16 02:00] VITALS: BP 136/70
[2020-11-16 05:47] LABS: BASOPHILS % (AUTO) 1 % (0-1); EOSINOPHILS % (AUTO) 4 % (1-7); LYMPHOCYTES % (AUTO) 31 % (22-44); MEAN CORPUSCULAR HEMOGLOBIN 26.4 pg (27.5-34.5); MEAN CORPUSCULAR HGB CONC 31.2 g/dL (33.2-36.2); MEAN PLATELET VOLUME 7.9 fL (7.4-10.4); MONOCYTES % (AUTO) 9 % (2-9); NEUTROPHILS % (AUTO) 55 % (42-75); PLATELET COUNT 393 x10^3/uL (130-400); RED BLOOD COUNT 2.14 x10^6/uL (4.38-5.82); RED CELL DISTRIBUTION WIDTH 31.8 % (9.4-14.8)
[2020-11-16 05:48] VITALS: BP 147/80
[2020-11-16] MEDS: LACTOBACILLUS CHEW TABLET PO SCH ×4 (05:49→21:18)
[2020-11-16] MEDS: OMEPRAZOLE 20 MG CAPSULE.DR PO SCH ×2 (05:49→17:47)
[2020-11-16] MEDS: METOPROLOL TARTRATE 25 MG TAB PO SCH ×2 (05:50→17:47)
[2020-11-16 06:16] LABS: MD SCAN
[2020-11-16] MEDS: BACITRACIN OINT 500U/GM, 28GM TP SCH (09:43)
[2020-11-16] MEDS: THIAMINE 100MG TABLET NG SCH (09:44)
[2020-11-16] MEDS: FOLIC ACID 1 MG TABLET NG SCH (09:44)
[2020-11-16] MEDS: IRON SUCROSE COMPLEX 100MG/5ML IV SCH (09:44)
[2020-11-16 09:45] VITALS: BP 136/71
[2020-11-16] MEDS: LISINOPRIL 5 MG TABLET PO SCH (09:45)
[2020-11-16] MEDS: MULTIVIT.W/IRON, MINERALS ORAL SOL NG SCH (09:45)
[2020-11-16 13:35] VITALS: BP 129/71
[2020-11-16 19:07] VITALS: BP 123/67
[2020-11-17 02:31] VITALS: BP 148/60
[2020-11-17 05:35] VITALS: BP 137/73
[2020-11-17] MEDS: METOPROLOL TARTRATE 25 MG TAB PO SCH ×2 (05:36→17:39)
[2020-11-17] MEDS: LACTOBACILLUS CHEW TABLET PO SCH ×4 (05:37→20:23)
[2020-11-17] MEDS: OMEPRAZOLE 20 MG CAPSULE.DR PO SCH ×2 (05:37→16:33)
[2020-11-17 06:43] LABS: MEAN CORPUSCULAR HEMOGLOBIN 26.2 pg (27.5-34.5); MEAN CORPUSCULAR HGB CONC 30.7 g/dL (33.2-36.2); MEAN PLATELET VOLUME 8.1 fL (7.4-10.4); PLATELET COUNT 477 x10^3/uL (130-400); RED BLOOD COUNT 2.35 x10^6/uL (4.38-5.82); RED CELL DISTRIBUTION WIDTH 31.1 % (9.4-14.8)
[2020-11-17 07:27] VITALS: BP 135/78
[2020-11-17 07:40] LABS: MD YES
[2020-11-17 07:45] LABS: BANDS%(MANUAL) 2 % (0-7); EOS#(MANUAL) 0.15 x10^3/uL (0.0-0.4); EOS% (MANUAL) 3 % (1-7); LYMPHS% (MANUAL) 26 % (22-44); MONOS#(MANUAL) 0.35 x10^3/uL (0.3-2.7); MONOS% (MANUAL) 7 % (2-9); SEG#(MANUAL) 3.05 x10^3/uL (1.8-6.8); SEGS% (MANUAL) 61 % (42-75)
[2020-11-17 07:46] LABS: METAMYELOCYTES# (MANUAL) 0.05 x10^3/uL (0-0); METAMYELOCYTES% (MANUAL) 1 % (0-1)
[2020-11-17 07:47] LABS: ANISOCYTOSIS 2+; HYPOCHROMIA 2+; MICROCYTOSIS 1+; POLYCHROMASIA 1+
[2020-11-17 07:48] LABS: <PLATELET ESTIMATE> INCREASED; <PLT MORPHOLOGY> NORMAL PLT MORPH; SPHEROCYTES 1+
[2020-11-17] MEDS: MULTIVIT.W/IRON, MINERALS ORAL SOL NG SCH (09:41)
[2020-11-17] MEDS: IRON SUCROSE COMPLEX 100MG/5ML IV SCH (09:41)
[2020-11-17] MEDS: FOLIC ACID 1 MG TABLET NG SCH (09:42)
[2020-11-17] MEDS: THIAMINE 100MG TABLET NG SCH (09:42)
[2020-11-17] MEDS: BACITRACIN OINT 500U/GM, 28GM TP SCH (09:42)
[2020-11-17] MEDS: LISINOPRIL 5 MG TABLET PO SCH (09:42)
[2020-11-17 11:41] VITALS: BP 147/80
[2020-11-17 14:35] VITALS: BP 147/80
[2020-11-17 20:29] VITALS: BP 126/73
[2020-11-17] MEDS: MELATONIN 5 MG TABLET PO PRN (20:31)
[2020-11-17] MEDS: ACETAMINOPHEN 325 MG TABLET PO PRN (20:31)
[2020-11-17] MEDS: OXYcodone IR 5MG TABLET PO PRN (20:31)
[2020-11-18 01:36] VITALS: BP 113/72
[2020-11-18 05:46] LABS: BASOPHILS % (AUTO) 1 % (0-1); EOSINOPHILS % (AUTO) 5 % (1-7); LYMPHOCYTES % (AUTO) 30 % (22-44); MEAN CORPUSCULAR HEMOGLOBIN 26.5 pg (27.5-34.5); MEAN CORPUSCULAR HGB CONC 31.2 g/dL (33.2-36.2); MEAN PLATELET VOLUME 7.8 fL (7.4-10.4); MONOCYTES % (AUTO) 13 % (2-9); NEUTROPHILS % (AUTO) 51 % (42-75); PLATELET COUNT 513 x10^3/uL (130-400); RED BLOOD COUNT 2.39 x10^6/uL (4.38-5.82); RED CELL DISTRIBUTION WIDTH 29.9 % (9.4-14.8)
[2020-11-18] MEDS: LACTOBACILLUS CHEW TABLET PO SCH ×4 (05:59→21:03)
[2020-11-18] MEDS: OMEPRAZOLE 20 MG CAPSULE.DR PO SCH ×2 (05:59→17:34)
[2020-11-18] MEDS: METOPROLOL TARTRATE 25 MG TAB PO SCH ×2 (05:59→17:34)
[2020-11-18 07:47] VITALS: BP 129/69
[2020-11-18 07:49] LABS: ANISOCYTOSIS 2+; HYPOCHROMIA 2+; MD MORPH REVIEW ONLY; MICROCYTOSIS 1+; POLYCHROMASIA 1+
[2020-11-18 07:50] LABS: <PLATELET ESTIMATE> INCREASED; <PLT MORPHOLOGY> NORMAL PLT MORPH; OVALOCYTES 1+
[2020-11-18] MEDS: IRON SUCROSE COMPLEX 100MG/5ML IV SCH (09:08)
[2020-11-18] MEDS: LISINOPRIL 5 MG TABLET PO SCH (09:09)
[2020-11-18] MEDS: FOLIC ACID 1 MG TABLET NG SCH (09:09)
[2020-11-18] MEDS: THIAMINE 100MG TABLET NG SCH (09:09)
[2020-11-18] MEDS: BACITRACIN OINT 500U/GM, 28GM TP SCH (09:09)
[2020-11-18] MEDS: MULTIVIT.W/IRON, MINERALS ORAL SOL NG SCH (09:09)
[2020-11-18 13:16] VITALS: BP 121/69
[2020-11-18 19:57] VITALS: BP 124/70
[2020-11-18] MEDS: MELATONIN 5 MG TABLET PO PRN (21:04)
[2020-11-18] MEDS: ACETAMINOPHEN 325 MG TABLET PO PRN (21:06)
[2020-11-18] MEDS: OXYcodone IR 5MG TABLET PO PRN (21:06)
[2020-11-19 01:14] VITALS: BP 111/61
[2020-11-19] MEDS: LACTOBACILLUS CHEW TABLET PO SCH ×4 (06:01→20:11)
[2020-11-19] MEDS: OMEPRAZOLE 20 MG CAPSULE.DR PO SCH ×2 (06:01→15:37)
[2020-11-19] MEDS: METOPROLOL TARTRATE 25 MG TAB PO SCH ×2 (06:02→17:39)
[2020-11-19] MEDS: OXYcodone IR 5MG TABLET PO PRN ×4 (06:07→23:14)
[2020-11-19] MEDS: MULTIVIT.W/IRON, MINERALS ORAL SOL NG SCH (07:49)
[2020-11-19] MEDS: IRON SUCROSE COMPLEX 100MG/5ML IV SCH (07:49)
[2020-11-19] MEDS: BACITRACIN OINT 500U/GM, 28GM TP SCH (07:50)
[2020-11-19] MEDS: THIAMINE 100MG TABLET NG SCH (07:50)
[2020-11-19] MEDS: FOLIC ACID 1 MG TABLET NG SCH (07:50)
[2020-11-19] MEDS: LISINOPRIL 5 MG TABLET PO SCH (07:50)
[2020-11-19 07:55] VITALS: BP 123/71
[2020-11-19 13:48] VITALS: BP 105/65
[2020-11-19 20:00] VITALS: BP 110/68
[2020-11-20 02:00] VITALS: BP 122/74
[2020-11-20 04:55] LABS: BASOPHILS % (AUTO) 0 % (0-1); EOSINOPHILS % (AUTO) 6 % (1-7); LYMPHOCYTES % (AUTO) 32 % (22-44); MEAN CORPUSCULAR HEMOGLOBIN 26.3 pg (27.5-34.5); MEAN CORPUSCULAR HGB CONC 30.8 g/dL (33.2-36.2); MEAN PLATELET VOLUME 7.5 fL (7.4-10.4); MONOCYTES % (AUTO) 14 % (2-9); NEUTROPHILS % (AUTO) 48 % (42-75); PLATELET COUNT 591 x10^3/uL (130-400); RED BLOOD COUNT 2.81 x10^6/uL (4.38-5.82); RED CELL DISTRIBUTION WIDTH 27.6 % (9.4-14.8)
[2020-11-20 05:05] LABS: ALBUMIN 1.8 g/dL (3.4-5.0); ANION GAP 6 mmol/L (5-15); CALCIUM 8.7 mg/dL (8.5-10.1); CHLORIDE 104 mmol/L (98-107)
[2020-11-20 05:09] LABS: ALANINE AMINOTRANSFERASE 12 U/L (12-78); ALKALINE PHOSPHATASE 78 U/L (45-117); BILIRUBIN,TOTAL 0.2 mg/dL (0.2-1.0); CREATININE 0.85 mg/dL (0.7-1.3); TOTAL PROTEIN 8.6 g/dL (6.4-8.2)
[2020-11-20 05:46] LABS: MD SCAN
[2020-11-20] MEDS: OMEPRAZOLE 20 MG CAPSULE.DR PO SCH ×2 (05:52→16:30)
[2020-11-20] MEDS: METOPROLOL TARTRATE 25 MG TAB PO SCH ×2 (05:53→17:59)
[2020-11-20] MEDS: LACTOBACILLUS CHEW TABLET PO SCH ×4 (06:00→21:09)
[2020-11-20] MEDS: LISINOPRIL 5 MG TABLET PO SCH (08:13)
[2020-11-20] MEDS: THIAMINE 100MG TABLET NG SCH (08:13)
[2020-11-20] MEDS: BACITRACIN OINT 500U/GM, 28GM TP SCH (08:13)
[2020-11-20] MEDS: MULTIVIT.W/IRON, MINERALS ORAL SOL NG SCH (08:13)
[2020-11-20] MEDS: FOLIC ACID 1 MG TABLET NG SCH (08:13)
[2020-11-20] MEDS: IRON SUCROSE COMPLEX 100MG/5ML IV SCH (08:13)
[2020-11-20 08:35] VITALS: BP 94/56
[2020-11-20 09:21] VITALS: BP 105/67
[2020-11-20 12:46] VITALS: BP 122/68
[2020-11-20] MEDS: OXYcodone IR 5MG TABLET PO PRN (15:15)
[2020-11-20] MEDS: ACETAMINOPHEN 325 MG TABLET PO PRN (18:01)
[2020-11-20 20:06] VITALS: BP 111/57
[2020-11-21 01:24] VITALS: BP 119/77
[2020-11-21] MEDS: OMEPRAZOLE 20 MG CAPSULE.DR PO SCH ×2 (05:24→16:45)
[2020-11-21] MEDS: LACTOBACILLUS CHEW TABLET PO SCH ×4 (05:24→20:05)
[2020-11-21 05:25] VITALS: BP 111/76
[2020-11-21] MEDS: METOPROLOL TARTRATE 25 MG TAB PO SCH ×2 (05:25→18:29)
[2020-11-21] MEDS: FOLIC ACID 1 MG TABLET NG SCH (08:01)
[2020-11-21] MEDS: THIAMINE 100MG TABLET NG SCH (08:01)
[2020-11-21] MEDS: IRON SUCROSE COMPLEX 100MG/5ML IV SCH (08:01)
[2020-11-21] MEDS: LISINOPRIL 5 MG TABLET PO SCH (08:01)
[2020-11-21] MEDS: BACITRACIN OINT 500U/GM, 28GM TP SCH (08:02)
[2020-11-21] MEDS: MULTIVIT.W/IRON, MINERALS ORAL SOL NG SCH (08:02)
[2020-11-21 08:41] VITALS: BP 109/56
[2020-11-21] MEDS: OXYcodone IR 5MG TABLET PO PRN (16:49)
[2020-11-21 16:51] VITALS: BP 108/68
[2020-11-21 20:04] VITALS: BP 121/63
[2020-11-21] MEDS: ACETAMINOPHEN 325 MG TABLET PO PRN (20:04)
[2020-11-22 01:21] VITALS: BP 105/57
[2020-11-22] MEDS: ACETAMINOPHEN 325 MG TABLET PO PRN ×2 (02:30→15:50)
[2020-11-22] MEDS: OMEPRAZOLE 20 MG CAPSULE.DR PO SCH ×2 (05:38→15:52)
[2020-11-22] MEDS: METOPROLOL TARTRATE 25 MG TAB PO SCH ×2 (05:38→17:12)
[2020-11-22] MEDS: LACTOBACILLUS CHEW TABLET PO SCH ×4 (05:38→20:08)
[2020-11-22 07:48] VITALS: BP 125/70
[2020-11-22] MEDS: THIAMINE 100MG TABLET NG SCH (09:25)
[2020-11-22] MEDS: FOLIC ACID 1 MG TABLET NG SCH (09:25)
[2020-11-22] MEDS: FERROUS SULFATE 325 MG TABLET PO SCH ×2 (09:26→17:12)
[2020-11-22] MEDS: LISINOPRIL 5 MG TABLET PO SCH (09:26)
[2020-11-22] MEDS: BACITRACIN OINT 500U/GM, 28GM TP SCH (09:28)
[2020-11-22] MEDS: MULTIVIT.W/IRON, MINERALS ORAL SOL NG SCH (09:28)
[2020-11-22] MEDS ORDERED: MEDROL 4MG DOSEPAK PO SCH (10:30)
[2020-11-22 17:11] VITALS: BP 135/74
[2020-11-22 20:35] VITALS: BP 102/53
[2020-11-23 02:20] VITALS: BP 131/71
[2020-11-23 05:29] VITALS: BP 134/58
[2020-11-23] MEDS: METOPROLOL TARTRATE 25 MG TAB PO SCH ×2 (05:31→17:03)
[2020-11-23] MEDS: OMEPRAZOLE 20 MG CAPSULE.DR PO SCH ×2 (05:31→17:03)
[2020-11-23] MEDS: LACTOBACILLUS CHEW TABLET PO SCH ×4 (05:31→21:35)
[2020-11-23 05:42] LABS: MEAN CORPUSCULAR HEMOGLOBIN 26.7 pg (27.5-34.5); MEAN PLATELET VOLUME 7.2 fL (7.4-10.4)
[2020-11-23 05:48] LABS: BASOPHILS % (AUTO) 1 % (0-1); EOSINOPHILS % (AUTO) 1 % (1-7); LYMPHOCYTES % (AUTO) 24 % (22-44); MEAN CORPUSCULAR HGB CONC 31.5 g/dL (33.2-36.2); MONOCYTES % (AUTO) 14 % (2-9); NEUTROPHILS % (AUTO) 60 % (42-75); PLATELET COUNT 718 x10^3/uL (130-400); RED BLOOD COUNT 2.96 x10^6/uL (4.38-5.82); RED CELL DISTRIBUTION WIDTH 23.9 % (9.4-14.8)
[2020-11-23 05:55] LABS: ANION GAP 4 mmol/L (5-15); CALCIUM 8.8 mg/dL (8.5-10.1); CHLORIDE 103 mmol/L (98-107)
[2020-11-23 05:56] LABS: CREATININE 0.69 mg/dL (0.7-1.3)
[2020-11-23 06:42] LABS: MD MORPH REVIEW ONLY
[2020-11-23 06:43] LABS: <PLATELET ESTIMATE> INCREASED; <PLT MORPHOLOGY> NORMAL PLT MORPH; ANISOCYTOSIS 2+; HYPOCHROMIA 2+; MICROCYTOSIS 1+; OVALOCYTES 1+; POLYCHROMASIA 1+
[2020-11-23 08:03] VITALS: BP 135/66
[2020-11-23] MEDS: FERROUS SULFATE 325 MG TABLET PO SCH ×2 (08:16→17:04)
[2020-11-23] MEDS: THIAMINE 100MG TABLET NG SCH (08:16)
[2020-11-23] MEDS: FOLIC ACID 1 MG TABLET NG SCH (08:17)
[2020-11-23] MEDS: MULTIVIT.W/IRON, MINERALS ORAL SOL NG SCH (08:17)
[2020-11-23] MEDS: LISINOPRIL 5 MG TABLET PO SCH (08:17)
[2020-11-23] MEDS: BACITRACIN OINT 500U/GM, 28GM TP SCH (08:18)
[2020-11-23 13:26] VITALS: BP 118/65
[2020-11-23 18:43] VITALS: BP 133/72
[2020-11-24 00:05] VITALS: BP 150/76
[2020-11-24 05:23] LABS: BASOPHILS % (AUTO) 1 % (0-1); EOSINOPHILS % (AUTO) 0 % (1-7); LYMPHOCYTES % (AUTO) 12 % (22-44); MEAN CORPUSCULAR HEMOGLOBIN 26.4 pg (27.5-34.5); MEAN CORPUSCULAR HGB CONC 31.4 g/dL (33.2-36.2); MEAN PLATELET VOLUME 7.1 fL (7.4-10.4); MONOCYTES % (AUTO) 6 % (2-9); NEUTROPHILS % (AUTO) 80 % (42-75); PLATELET COUNT 793 x10^3/uL (130-400); RED BLOOD COUNT 3.21 x10^6/uL (4.38-5.82); RED CELL DISTRIBUTION WIDTH 23.7 % (9.4-14.8)
[2020-11-24 05:26] LABS: MD NO
[2020-11-24] MEDS: OMEPRAZOLE 20 MG CAPSULE.DR PO SCH ×2 (06:05→16:07)
[2020-11-24] MEDS: LACTOBACILLUS CHEW TABLET PO SCH ×3 (06:05→16:07)
[2020-11-24] MEDS: METOPROLOL TARTRATE 25 MG TAB PO SCH (06:05)
[2020-11-24 06:49] VITALS: BP 147/79
[2020-11-24] MEDS: THIAMINE 100MG TABLET NG SCH (08:21)
[2020-11-24] MEDS: FERROUS SULFATE 325 MG TABLET PO SCH ×2 (08:21→16:07)
[2020-11-24] MEDS: FOLIC ACID 1 MG TABLET NG SCH (08:21)
[2020-11-24] MEDS: MULTIVIT.W/IRON, MINERALS ORAL SOL NG SCH (08:22)
[2020-11-24] MEDS: LISINOPRIL 5 MG TABLET PO SCH (08:22)
[2020-11-24] MEDS: BACITRACIN OINT 500U/GM, 28GM TP SCH (08:25)
[2020-11-24] MEDS ORDERED: MULT9LIQ10 NG (12:40)
[2020-11-24] MEDS ORDERED: THIA100T67 NG (12:40)
[2020-11-24] MEDS ORDERED: BACI28.42 TP (12:40)
[2020-11-24] MEDS ORDERED: FERR-51 PO (12:40)
[2020-11-24] MEDS ORDERED: OMEP-110 PO (12:40)
[2020-11-24] MEDS ORDERED: METO25TA35 PO (12:40)
[2020-11-24] MEDS ORDERED: LISI5TAB7 PO (12:40)
[2020-11-24] MEDS ORDERED: METH4TAB6 PO (12:40)
[2020-11-24 12:56] VITALS: BP 128/68
== END 2020-11-24 17:55 | disposition home or self-care (01) | DRG 720 ==
LOC: MERGE 02:34 → EDBD 02:34 → ED 06:57 → EDIP 07:05 → ICU 09:30 → CCU 10-31 18:33 → 4WST 11-06 07:19 → 4NE 11-17 11:20 → 3N 11-19 07:41
PROVIDERS: ADMIT Internal Medicine; ATTEND Internal Medicine
PROC: 02HV33Z Insertion of Infusion Device into Superior Vena Cava, Percutaneous Approach (ICD-10-PCS; 2020-10-30)
PROC: 30233N1 Transfusion of Nonautologous Red Blood Cells into Peripheral Vein, Percutaneous Approach (ICD-10-PCS; 2020-10-30)
PROC: B543ZZA Ultrasonography of Right Jugular Veins, Guidance (ICD-10-PCS; 2020-10-30)
PROC: 0T9B70Z Drainage of Bladder with Drainage Device, Via Natural or Artificial Opening (ICD-10-PCS; 2020-10-31)
PROC: 3E0G8GC Introduction of Other Therapeutic Substance into Upper GI, Via Natural or Artificial Opening Endoscopic (ICD-10-PCS; principal; 2020-11-11 12:00)
DX: A40.0 Sepsis due to streptococcus, group A (principal); B19.20 Unspecified viral hepatitis C without hepatic coma; B85.2 Pediculosis, unspecified; B86 Scabies; D50.9 Iron deficiency anemia, unspecified; D63.8 Anemia in other chronic diseases classified elsewhere; D69.6 Thrombocytopenia, unspecified; E43 Unspecified severe protein-calorie malnutrition; E83.39 Other disorders of phosphorus metabolism; Z20.822 Contact with and (suspected) exposure to COVID-19; E86.0 Dehydration; E87.0 Hyperosmolality and hypernatremia; E87.2 Acidosis; R65.21 Severe sepsis with septic shock; F10.20 Alcohol dependence, uncomplicated; F12.90 Cannabis use, unspecified, uncomplicated; F39 Unspecified mood [affective] disorder; F60.0 Paranoid personality disorder; G93.41 Metabolic encephalopathy; I11.0 Hypertensive heart disease with heart failure; I27.20 Pulmonary hypertension, unspecified; I47.2 Ventricular tachycardia; I50.21 Acute systolic (congestive) heart failure; I70.0 Atherosclerosis of aorta; I95.1 Orthostatic hypotension; J15.4 Pneumonia due to other streptococci; J96.01 Acute respiratory failure with hypoxia; K21.01 Gastro-esophageal reflux disease with esophagitis, with bleeding; K26.4 Chronic or unspecified duodenal ulcer with hemorrhage; K44.9 Diaphragmatic hernia without obstruction or gangrene; L03.115 Cellulitis of right lower limb; L03.116 Cellulitis of left lower limb; M19.90 Unspecified osteoarthritis, unspecified site; M62.82 Rhabdomyolysis; N17.0 Acute kidney failure with tubular necrosis; N35.911 Unspecified urethral stricture, male, meatal; R13.10 Dysphagia, unspecified; R33.9 Retention of urine, unspecified; T68.XXXA Hypothermia, initial encounter; Z68.23 Body mass index [BMI] 23.0-23.9, adult; Z63.8 Other specified problems related to primary support group; Z82.5 Family history of asthma and other chronic lower respiratory diseases; Z87.891 Personal history of nicotine dependence; Z88.1 Allergy status to other antibiotic agents; Z99.3 Dependence on wheelchair
CPT/HCPCS: 36415; 36430; 36600; 70450; 71045; 71250; 74018; 74176; 80048; 80053; 80074; 80299; 80307; 80320; 80329; 81001; 82140; 82272; 82533; 82550; 82607; 82728; 82803; 82962; 83540; 83550; 83605; 83690; 83735; 84100; 84145; 84295; 84439; 84443; 84481; 84484; 85014; 85018; 85025; 85610; 85730; 86592; 86850; 86900; 86923; 87040; 87070; 87077; 87081; 87086; 87147; 87181; 87186; 87205; 87324; 87338; 87400; 87491; 87521; 87522; 87591; 87635; 87806; 93005; 93306; 93970; 96365; 99291; G0378; J0295; J0878; J1650; J1750; J1756; J2250; J2354; J2405; J2543; J2704; J3370; J3411; J3475; J3480; J7070; J7509; 92522-GN; C9113; G0475; G0480; J1940; J2060; J7030; J7040; J7050; J7120; P9016; U0003

== ENCOUNTER 2020-12-05 19:22 | Inpatient (IN) | payer MEDICAID ==
[~2020-12-05] VITALS: Ht 185.4 cm; Wt 78.2 kg
[~2020-12-05 19:22] MED LIST changes: +BACI28.42 TP; +FERR-51 PO; +LISI5TAB7 PO; +METH4TAB6 PO; +METO25TA35 PO; +MULT9LIQ10 NG; +OMEP-110 PO; +THIA100T67 NG
[2020-12-05] MEDS ORDERED: SODIUM CHLORIDE 0.9% 1,000ML IVBOLUS ONE ×2 (20:30→23:30)
[2020-12-05 20:58] LABS: BASOPHILS % (AUTO) 1 % (0-1); EOSINOPHILS % (AUTO) 1 % (1-7); LYMPHOCYTES % (AUTO) 15 % (22-44); MEAN CORPUSCULAR HEMOGLOBIN 26.7 pg (27.5-34.5); MEAN CORPUSCULAR HGB CONC 31.8 g/dL (33.2-36.2); MEAN PLATELET VOLUME 7.1 fL (7.4-10.4); MONOCYTES % (AUTO) 7 % (2-9); NEUTROPHILS % (AUTO) 76 % (42-75); PLATELET COUNT 306 x10^3/uL (130-400); RED BLOOD COUNT 3.45 x10^6/uL (4.38-5.82); RED CELL DISTRIBUTION WIDTH 23.9 % (9.4-14.8)
[2020-12-05 21:00] LABS: MD NO
[2020-12-05 21:11] LABS: ALANINE AMINOTRANSFERASE 17 U/L (12-78); ALBUMIN 2.2 g/dL (3.4-5.0); ANION GAP 12 mmol/L (5-15); CALCIUM 8.5 mg/dL (8.5-10.1); CHLORIDE 110 mmol/L (98-107); CREATININE 0.65 mg/dL (0.7-1.3)
[2020-12-05 21:14] LABS: ALKALINE PHOSPHATASE 90 U/L (45-117); BILIRUBIN,TOTAL 0.1 mg/dL (0.2-1.0); TOTAL PROTEIN 8.5 g/dL (6.4-8.2)
[2020-12-05] MEDS ORDERED: AMPICILLIN/SULBACTAM 3 GM in SODIUM CHLORIDE 0.9% 100 ML IV ONE (21:30)
[2020-12-05] MEDS ORDERED: VANCOMYCIN 2,000 MG in SODIUM CHLORIDE 0.9% 500 ML IV ONE (21:30)
[2020-12-05] MEDS ORDERED: VANCOMYCIN PER PHARMACY MC PRN (21:30)
[2020-12-05] MEDS ORDERED: HYDROmorphone 1 MG/ML, 1ML INJ IV ONE (22:00)
[2020-12-05] MEDS ORDERED: ONDANSETRON 2MG/ML, 2ML IVPush ONE (22:00)
[2020-12-05] MEDS ORDERED: HYDROmorphone 1 MG/ML, 1ML INJ ONE (22:36)
[2020-12-05] MEDS ORDERED: ONDANSETRON 2MG/ML, 2ML ONE (22:36)
[2020-12-05 23:05] LABS: MICROSCOPIC NOT IND
[2020-12-05] MEDS ORDERED: LORazepam 2 MG/ML, 1ML ONE (23:20)
[2020-12-05] MEDS ORDERED: LORazepam 2 MG/ML, 1ML IVPush ONE (23:30)
[2020-12-06] MEDS ORDERED: PROMETHAZINE 25 MG/ML, 1ML IM PRN
[2020-12-06] MEDS ORDERED: LABETALOL 5MG/ML, 20ML IVPush PRN
[2020-12-06] MEDS ORDERED: LORazepam 1MG TABLET PO PRN
[2020-12-06] MEDS ORDERED: morphine SULFATE 10 MG/ML, 1ML IVPush PRN
[2020-12-06] MEDS ORDERED: ACETAMINOPHEN 325 MG TABLET PO PRN
[2020-12-06] MEDS ORDERED: POTASSIUM CHLORIDE 20 MEQ TAB.ER.PRT PO ONE (00:30)
[2020-12-06 00:57] VITALS: BP 152/83
[2020-12-06] MEDS: LACTATED RINGERS 1,000 ML IV SCH ×2 (01:00→14:24)
[2020-12-06] MEDS ORDERED: MAGNESIUM SULFATE PMX 2GM/50ML 50 ML IV ONE (02:00)
[2020-12-06] MEDS: ENOXAPARIN 40 MG/0.4 ML SQ SCH (03:05)
[2020-12-06 08:00] VITALS: BP 150/82
[2020-12-06] MEDS: SENNA/DOCUSATE TABLET PO SCH (08:31)
[2020-12-06] MEDS: THIAMINE 100MG TABLET PO SCH (08:32)
[2020-12-06] MEDS ORDERED: LABETALOL 5MG/ML, 20ML IV PRN (09:30)
[2020-12-06] MEDS ORDERED: ONDANSETRON 2MG/ML, 2ML IV PRN (09:30)
[2020-12-06] MEDS ORDERED: LORazepam 2 MG/ML, 1ML IV PRN ×5 (09:30)
[2020-12-06] MEDS: MULTIVITAMINS/MINERALS TABLET PO SCH (10:40)
[2020-12-06 10:44] LABS: ALANINE AMINOTRANSFERASE 14 U/L (12-78); ALBUMIN 1.9 g/dL (3.4-5.0); ANION GAP 5 mmol/L (5-15); CALCIUM 8.5 mg/dL (8.5-10.1); CHLORIDE 110 mmol/L (98-107); CREATININE 0.62 mg/dL (0.7-1.3)
[2020-12-06 10:46] LABS: BILIRUBIN, DIRECT < 0.1 mg/dL (0.1-0.2)
[2020-12-06 10:52] LABS: ALKALINE PHOSPHATASE 80 U/L (45-117); BILIRUBIN,INDIRECT 0.2 mg/dL (0.0-2.0); BILIRUBIN,TOTAL 0.3 mg/dL (0.2-1.0); TOTAL PROTEIN 7.1 g/dL (6.4-8.2)
[2020-12-06 12:15] VITALS: BP 146/81
[2020-12-06] MEDS: VANCOMYCIN 1,600 MG in SODIUM CHLORIDE 0.9% 250 ML IV SCH (16:55)
[2020-12-06] MEDS: HYDROcodone/APAP 5/325 TABLET PO PRN ×2 (16:57→20:52)
[2020-12-06] MEDS ORDERED: VANCOMYCIN PER PHARMACY MC PRN (17:00)
[2020-12-06] MEDS ORDERED: PHARMACOKINETIC MONITORING MC PRN (17:00)
[2020-12-06] MEDS: AMPICILLIN/SULBACTAM 1,500 MG in SODIUM CHLORIDE 0.9% 50 ML IV SCH (18:41)
[2020-12-06 19:19] VITALS: BP 136/73
[2020-12-07 00:24] VITALS: BP 122/73
[2020-12-07] MEDS: ENOXAPARIN 40 MG/0.4 ML SQ SCH (02:50)
[2020-12-07] MEDS: HYDROcodone/APAP 5/325 TABLET PO PRN ×2 (02:52→09:04)
[2020-12-07 05:29] LABS: BASOPHILS % (AUTO) 0 % (0-1); EOSINOPHILS % (AUTO) 2 % (1-7); LYMPHOCYTES % (AUTO) 17 % (22-44); MEAN CORPUSCULAR HEMOGLOBIN 26.7 pg (27.5-34.5); MEAN CORPUSCULAR HGB CONC 31.8 g/dL (33.2-36.2); MEAN PLATELET VOLUME 7.2 fL (7.4-10.4); MONOCYTES % (AUTO) 10 % (2-9); NEUTROPHILS % (AUTO) 71 % (42-75); PLATELET COUNT 186 x10^3/uL (130-400); RED BLOOD COUNT 3.01 x10^6/uL (4.38-5.82); RED CELL DISTRIBUTION WIDTH 23.6 % (9.4-14.8)
[2020-12-07 05:43] LABS: CALCIUM 7.8 mg/dL (8.5-10.1); CHLORIDE 108 mmol/L (98-107); CREATININE 0.56 mg/dL (0.7-1.3)
[2020-12-07 05:53] LABS: ANION GAP 3 mmol/L (5-15)
[2020-12-07 06:10] LABS: MD SCAN
[2020-12-07 06:57] VITALS: BP 151/87
[2020-12-07] MEDS: MULTIVITAMINS/MINERALS TABLET PO SCH (09:05)
[2020-12-07] MEDS: THIAMINE 100MG TABLET PO SCH (09:05)
[2020-12-07] MEDS: SENNA/DOCUSATE TABLET PO SCH (09:05)
[2020-12-07] MEDS: VANCOMYCIN 1,600 MG in SODIUM CHLORIDE 0.9% 250 ML IV SCH (10:27)
[2020-12-07 12:00] VITALS: BP 135/74
[2020-12-07] MEDS: morphine SULFATE 15 MG TAB.IR PO PRN ×2 (17:29→21:15)
[2020-12-07] MEDS: AMPICILLIN/SULBACTAM 1,500 MG in SODIUM CHLORIDE 0.9% 50 ML IV SCH (17:56)
[2020-12-07 19:16] VITALS: BP 150/84
[2020-12-08 00:50] VITALS: BP 160/92
[2020-12-08] MEDS: ENOXAPARIN 40 MG/0.4 ML SQ SCH (03:16)
[2020-12-08] MEDS: VANCOMYCIN 1,600 MG in SODIUM CHLORIDE 0.9% 250 ML IV SCH ×2 (04:40→16:30)
[2020-12-08 04:47] LABS: BASOPHILS % (AUTO) 0 % (0-1); EOSINOPHILS % (AUTO) 1 % (1-7); LYMPHOCYTES % (AUTO) 13 % (22-44); MEAN CORPUSCULAR HEMOGLOBIN 26.8 pg (27.5-34.5); MEAN CORPUSCULAR HGB CONC 32.4 g/dL (33.2-36.2); MEAN PLATELET VOLUME 7.1 fL (7.4-10.4); MONOCYTES % (AUTO) 8 % (2-9); NEUTROPHILS % (AUTO) 77 % (42-75); PLATELET COUNT 178 x10^3/uL (130-400); RED BLOOD COUNT 3.15 x10^6/uL (4.38-5.82); RED CELL DISTRIBUTION WIDTH 24.4 % (9.4-14.8)
[2020-12-08 04:52] LABS: ANION GAP 4 mmol/L (5-15); CALCIUM 8.1 mg/dL (8.5-10.1); CHLORIDE 103 mmol/L (98-107)
[2020-12-08 04:54] LABS: CREATININE 0.51 mg/dL (0.7-1.3); VANCOMYCIN,TROUGH 13.7 mcg/mL (5.0-10.0)
[2020-12-08 05:55] LABS: MD SCAN
[2020-12-08 07:38] VITALS: BP 143/84
[2020-12-08] MEDS: SENNA/DOCUSATE TABLET PO SCH (09:00)
[2020-12-08] MEDS: THIAMINE 100MG TABLET PO SCH (09:27)
[2020-12-08] MEDS: MULTIVITAMINS/MINERALS TABLET PO SCH (09:27)
[2020-12-08] MEDS: THIAMINE 100 MG in DEXTROSE 5% 50 ML IVPB SCH (09:27)
[2020-12-08 12:05] VITALS: BP 146/85
[2020-12-08] MEDS: morphine SULFATE 15 MG TAB.IR PO PRN ×2 (12:23→20:37)
[2020-12-08] MEDS: AMPICILLIN/SULBACTAM 1,500 MG in SODIUM CHLORIDE 0.9% 50 ML IV SCH (18:34)
[2020-12-08 19:03] VITALS: BP 160/95
[2020-12-09 01:31] VITALS: BP 152/94
[2020-12-09] MEDS: ENOXAPARIN 40 MG/0.4 ML SQ SCH (03:03)
[2020-12-09 07:29] VITALS: BP 159/98
[2020-12-09] MEDS: MULTIVITAMINS/MINERALS TABLET PO SCH (09:21)
[2020-12-09] MEDS: THIAMINE 100 MG in DEXTROSE 5% 50 ML IVPB SCH (09:21)
[2020-12-09] MEDS: THIAMINE 100MG TABLET PO SCH (09:21)
[2020-12-09] MEDS: SENNA/DOCUSATE TABLET PO SCH (09:21)
[2020-12-09] MEDS: VANCOMYCIN 1,600 MG in SODIUM CHLORIDE 0.9% 250 ML IV SCH (10:47)
[2020-12-09] MEDS: morphine SULFATE 15 MG TAB.IR PO PRN ×2 (11:02→21:55)
[2020-12-09 14:26] VITALS: BP 149/84
[2020-12-09] MEDS: PIPERACILLIN/TAZO/PMX 3.375GM 50 ML IV SCH ×2 (17:14→21:54)
[2020-12-09 18:23] VITALS: BP 148/81
[2020-12-10 01:12] VITALS: BP 147/86
[2020-12-10] MEDS: ENOXAPARIN 40 MG/0.4 ML SQ SCH (03:08)
[2020-12-10] MEDS: PIPERACILLIN/TAZO/PMX 3.375GM 50 ML IV SCH ×4 (03:46→21:59)
[2020-12-10 04:50] LABS: MEAN PLATELET VOLUME 7.1 fL (7.4-10.4)
[2020-12-10 04:52] LABS: BASOPHILS % (AUTO) 0 % (0-1); EOSINOPHILS % (AUTO) 2 % (1-7); LYMPHOCYTES % (AUTO) 18 % (22-44); MEAN CORPUSCULAR HEMOGLOBIN 26.9 pg (27.5-34.5); MEAN CORPUSCULAR HGB CONC 32.4 g/dL (33.2-36.2); MONOCYTES % (AUTO) 14 % (2-9); NEUTROPHILS % (AUTO) 67 % (42-75); PLATELET COUNT 177 x10^3/uL (130-400); RED BLOOD COUNT 3.37 x10^6/uL (4.38-5.82)
[2020-12-10 04:54] LABS: MD NO
[2020-12-10 04:59] LABS: CHLORIDE 102 mmol/L (98-107)
[2020-12-10 05:05] LABS: ANION GAP 6 mmol/L (5-15); CALCIUM 8.4 mg/dL (8.5-10.1); CREATININE 0.65 mg/dL (0.7-1.3)
[2020-12-10 06:14] VITALS: BP 147/89
[2020-12-10] MEDS: SENNA/DOCUSATE TABLET PO SCH (09:00)
[2020-12-10] MEDS: MULTIVITAMINS/MINERALS TABLET PO SCH (09:05)
[2020-12-10] MEDS: THIAMINE 100MG TABLET PO SCH (09:05)
[2020-12-10] MEDS: morphine SULFATE 15 MG TAB.IR PO PRN ×2 (09:07→21:56)
[2020-12-10 12:01] VITALS: BP 146/85
[2020-12-10] MEDS: LORazepam 0.5MG TABLET PO SCH ×2 (12:07→21:57)
[2020-12-10 20:27] VITALS: BP 152/87
[2020-12-11 00:25] VITALS: BP 143/84
[2020-12-11] MEDS: ENOXAPARIN 40 MG/0.4 ML SQ SCH (03:00)
[2020-12-11] MEDS: PIPERACILLIN/TAZO/PMX 3.375GM 50 ML IV SCH ×4 (03:44→21:17)
[2020-12-11 06:13] VITALS: BP 148/86
[2020-12-11] MEDS: LORazepam 0.5MG TABLET PO SCH ×2 (09:14→21:12)
[2020-12-11] MEDS: SENNA/DOCUSATE TABLET PO SCH (09:14)
[2020-12-11] MEDS: THIAMINE 100MG TABLET PO SCH (09:14)
[2020-12-11] MEDS: MULTIVITAMINS/MINERALS TABLET PO SCH (09:14)
[2020-12-11 11:20] VITALS: BP 129/79
[2020-12-11 18:53] VITALS: BP 143/78
[2020-12-11] MEDS: morphine SULFATE 15 MG TAB.IR PO PRN (21:13)
[2020-12-12 02:31] VITALS: BP 139/77
[2020-12-12] MEDS: ENOXAPARIN 40 MG/0.4 ML SQ SCH (03:00)
[2020-12-12] MEDS: PIPERACILLIN/TAZO/PMX 3.375GM 50 ML IV SCH ×4 (03:39→22:03)
[2020-12-12 06:22] VITALS: BP 142/82
[2020-12-12] MEDS: SENNA/DOCUSATE TABLET PO SCH (09:00)
[2020-12-12] MEDS: LORazepam 0.5MG TABLET PO SCH ×2 (09:10→22:03)
[2020-12-12] MEDS: MULTIVITAMINS/MINERALS TABLET PO SCH (09:10)
[2020-12-12] MEDS: THIAMINE 100MG TABLET PO SCH (09:10)
[2020-12-12] MEDS: morphine SULFATE 15 MG TAB.IR PO PRN ×2 (09:28→22:03)
[2020-12-12 11:22] VITALS: BP 142/78
[2020-12-12 20:25] VITALS: BP 141/73
[2020-12-13 01:36] VITALS: BP 132/79
[2020-12-13] MEDS: PIPERACILLIN/TAZO/PMX 3.375GM 50 ML IV SCH ×4 (03:06→21:44)
[2020-12-13] MEDS: ENOXAPARIN 40 MG/0.4 ML SQ SCH (03:07)
[2020-12-13] MEDS: morphine SULFATE 15 MG TAB.IR PO PRN ×2 (03:07→09:30)
[2020-12-13 07:18] VITALS: BP 139/75
[2020-12-13] MEDS: LORazepam 0.5MG TABLET PO SCH ×2 (09:19→21:44)
[2020-12-13] MEDS: MULTIVITAMINS/MINERALS TABLET PO SCH (09:19)
[2020-12-13] MEDS: THIAMINE 100MG TABLET PO SCH (09:20)
[2020-12-13] MEDS: SENNA/DOCUSATE TABLET PO SCH (09:20)
[2020-12-13 14:38] VITALS: BP 132/75
[2020-12-13] MEDS: morphine SULFATE 10 MG/ML, 1ML IVPush PRN ×2 (15:19→23:53)
[2020-12-13 18:19] VITALS: BP 126/71
[2020-12-14 01:05] VITALS: BP 119/67
[2020-12-14] MEDS: PIPERACILLIN/TAZO/PMX 3.375GM 50 ML IV SCH ×4 (04:41→22:09)
[2020-12-14] MEDS: ENOXAPARIN 40 MG/0.4 ML SQ SCH (04:41)
[2020-12-14 05:36] LABS: ANION GAP 3 mmol/L (5-15); CHLORIDE 102 mmol/L (98-107)
[2020-12-14 05:37] LABS: CREATININE 0.68 mg/dL (0.7-1.3)
[2020-12-14 05:40] LABS: BASOPHILS % (AUTO) 1 % (0-1); EOSINOPHILS % (AUTO) 2 % (1-7); LYMPHOCYTES % (AUTO) 18 % (22-44); MEAN CORPUSCULAR HEMOGLOBIN 26.3 pg (27.5-34.5); MEAN CORPUSCULAR HGB CONC 32.6 g/dL (33.2-36.2); MEAN PLATELET VOLUME 6.9 fL (7.4-10.4); MONOCYTES % (AUTO) 13 % (2-9); NEUTROPHILS % (AUTO) 67 % (42-75); PLATELET COUNT 341 x10^3/uL (130-400); RED BLOOD COUNT 3.26 x10^6/uL (4.38-5.82); RED CELL DISTRIBUTION WIDTH 23.7 % (9.4-14.8)
[2020-12-14 06:02] LABS: MD SCAN
[2020-12-14 07:49] VITALS: BP 134/73
[2020-12-14] MEDS: SENNA/DOCUSATE TABLET PO SCH (09:00)
[2020-12-14] MEDS: LORazepam 0.5MG TABLET PO SCH ×2 (09:02→20:59)
[2020-12-14] MEDS: THIAMINE 100MG TABLET PO SCH (09:03)
[2020-12-14] MEDS: morphine SULFATE 10 MG/ML, 1ML IVPush PRN (10:49)
[2020-12-14 12:59] VITALS: BP 149/78
[2020-12-14 19:08] VITALS: BP 157/72
[2020-12-15 00:34] VITALS: BP 131/70
[2020-12-15] MEDS: OXYcodone/APAP 7.5/325MG TABLET PO PRN ×3 (03:07→21:39)
[2020-12-15] MEDS: PIPERACILLIN/TAZO/PMX 3.375GM 50 ML IV SCH ×4 (04:22→22:06)
[2020-12-15] MEDS: ENOXAPARIN 40 MG/0.4 ML SQ SCH (04:22)
[2020-12-15 05:30] LABS: BASOPHILS % (AUTO) 1 % (0-1); EOSINOPHILS % (AUTO) 3 % (1-7); LYMPHOCYTES % (AUTO) 15 % (22-44); MEAN CORPUSCULAR HEMOGLOBIN 25.9 pg (27.5-34.5); MEAN CORPUSCULAR HGB CONC 31.3 g/dL (33.2-36.2); MEAN PLATELET VOLUME 6.6 fL (7.4-10.4); MONOCYTES % (AUTO) 8 % (2-9); NEUTROPHILS % (AUTO) 73 % (42-75); PLATELET COUNT 442 x10^3/uL (130-400); RED BLOOD COUNT 3.25 x10^6/uL (4.38-5.82); RED CELL DISTRIBUTION WIDTH 23.7 % (9.4-14.8)
[2020-12-15 06:23] LABS: <PLATELET ESTIMATE> INCREASED; <PLT MORPHOLOGY> NORMAL PLT MORPH; ANISOCYTOSIS 2+; HYPOCHROMIA 1+; MD MORPH REVIEW ONLY; MICROCYTOSIS 1+; POLYCHROMASIA 1+
[2020-12-15 06:53] VITALS: BP 126/71
[2020-12-15] MEDS: THIAMINE 100MG TABLET PO SCH (08:02)
[2020-12-15] MEDS: LORazepam 0.5MG TABLET PO SCH ×2 (08:02→21:37)
[2020-12-15] MEDS: SENNA/DOCUSATE TABLET PO SCH (08:03)
[2020-12-15] MEDS: morphine SULFATE 10 MG/ML, 1ML IVPush PRN (09:15)
[2020-12-15 13:04] VITALS: BP 133/75
[2020-12-15 19:14] VITALS: BP 141/76
[2020-12-16 00:56] VITALS: BP 149/75
[2020-12-16] MEDS: PIPERACILLIN/TAZO/PMX 3.375GM 50 ML IV SCH ×2 (04:29→10:19)
[2020-12-16] MEDS: OXYcodone/APAP 7.5/325MG TABLET PO PRN ×3 (04:34→21:20)
[2020-12-16 05:00] LABS: ANION GAP 3 mmol/L (5-15); CALCIUM 9.1 mg/dL (8.5-10.1); CHLORIDE 102 mmol/L (98-107); CREATININE 0.54 mg/dL (0.7-1.3)
[2020-12-16 05:14] LABS: BASOPHILS % (AUTO) 1 % (0-1); EOSINOPHILS % (AUTO) 1 % (1-7); LYMPHOCYTES % (AUTO) 14 % (22-44); MEAN CORPUSCULAR HEMOGLOBIN 25.9 pg (27.5-34.5); MEAN CORPUSCULAR HGB CONC 31.7 g/dL (33.2-36.2); MEAN PLATELET VOLUME 6.7 fL (7.4-10.4); MONOCYTES % (AUTO) 8 % (2-9); NEUTROPHILS % (AUTO) 77 % (42-75); PLATELET COUNT 550 x10^3/uL (130-400); RED CELL DISTRIBUTION WIDTH 22.6 % (9.4-14.8)
[2020-12-16 05:48] LABS: MD SCAN
[2020-12-16] MEDS: ENOXAPARIN 40 MG/0.4 ML SQ SCH (06:00)
[2020-12-16 06:52] VITALS: BP 144/73
[2020-12-16] MEDS: THIAMINE 100MG TABLET PO SCH (08:45)
[2020-12-16] MEDS: LORazepam 0.5MG TABLET PO SCH ×2 (08:45→21:20)
[2020-12-16] MEDS: SENNA/DOCUSATE TABLET PO SCH (08:45)
[2020-12-16] MEDS: CEFTRIAXONE PMX 1GM/50ML 50 ML IV SCH (11:31)
[2020-12-16 12:11] VITALS: BP 155/75
[2020-12-16 19:11] VITALS: BP 150/85
[2020-12-17 01:35] VITALS: BP 145/85
[2020-12-17] MEDS: ENOXAPARIN 40 MG/0.4 ML SQ SCH (06:00)
[2020-12-17 07:43] VITALS: BP 145/85
[2020-12-17] MEDS: SENNA/DOCUSATE TABLET PO SCH (09:00)
[2020-12-17] MEDS ORDERED: GADOTERATE 7.5 MMOL/15ML SYR ONE (09:25)
[2020-12-17] MEDS: LORazepam 0.5MG TABLET PO SCH ×2 (09:48→20:20)
[2020-12-17] MEDS: THIAMINE 100MG TABLET PO SCH (09:48)
[2020-12-17] MEDS: OXYcodone/APAP 7.5/325MG TABLET PO PRN (09:53)
[2020-12-17] MEDS: CEFTRIAXONE PMX 1GM/50ML 50 ML IV SCH (10:55)
[2020-12-17 14:30] VITALS: BP 123/79
[2020-12-17 19:20] VITALS: BP 152/74
[2020-12-17] MEDS: morphine SULFATE 10 MG/ML, 1ML IVPush PRN (20:31)
[2020-12-18 02:49] VITALS: BP 147/78
[2020-12-18] MEDS: ENOXAPARIN 40 MG/0.4 ML SQ SCH (05:55)
[2020-12-18 06:24] VITALS: BP 157/87
[2020-12-18 06:24] LABS: BASOPHILS % (AUTO) 1 % (0-1); EOSINOPHILS % (AUTO) 1 % (1-7); LYMPHOCYTES % (AUTO) 22 % (22-44); MEAN CORPUSCULAR HEMOGLOBIN 26.2 pg (27.5-34.5); MEAN CORPUSCULAR HGB CONC 31.8 g/dL (33.2-36.2); MEAN PLATELET VOLUME 6.6 fL (7.4-10.4); MONOCYTES % (AUTO) 8 % (2-9); NEUTROPHILS % (AUTO) 69 % (42-75); PLATELET COUNT 858 x10^3/uL (130-400); RED BLOOD COUNT 3.62 x10^6/uL (4.38-5.82); RED CELL DISTRIBUTION WIDTH 23.4 % (9.4-14.8)
[2020-12-18 06:30] LABS: ANION GAP 4 mmol/L (5-15); CALCIUM 9.6 mg/dL (8.5-10.1); CHLORIDE 103 mmol/L (98-107)
[2020-12-18 06:33] LABS: CREATININE 0.62 mg/dL (0.7-1.3)
[2020-12-18 06:54] LABS: MD SCAN
[2020-12-18] MEDS: LORazepam 0.5MG TABLET PO SCH (08:53)
[2020-12-18] MEDS: THIAMINE 100MG TABLET PO SCH (08:53)
[2020-12-18] MEDS: SENNA/DOCUSATE TABLET PO SCH (08:53)
[2020-12-18] MEDS ORDERED: OXYC1TAB17 PO (10:46)
[2020-12-18] MEDS ORDERED: ENOX40SY4 SQ (10:46)
[2020-12-18] MEDS: CEFTRIAXONE PMX 1GM/50ML 50 ML IV SCH (11:17)
[2020-12-18 11:56] VITALS: BP 149/80
== END 2020-12-18 15:58 | DRG 871 ==
LOC: ED 19:35 → EDIP 23:27 → 4WST 12-06 00:05
PROVIDERS: ADMIT Family Medicine; ATTEND Hospitalist
DX: A41.9 Sepsis, unspecified organism (principal); I50.43 Acute on chronic combined systolic (congestive) and diastolic (congestive) heart failure; R65.21 Severe sepsis with septic shock; G93.41 Metabolic encephalopathy; J18.9 Pneumonia, unspecified organism; E87.0 Hyperosmolality and hypernatremia; L97.419 Non-pressure chronic ulcer of right heel and midfoot with unspecified severity; N17.9 Acute kidney failure, unspecified; M62.82 Rhabdomyolysis; L03.115 Cellulitis of right lower limb; L03.116 Cellulitis of left lower limb; L97.429 Non-pressure chronic ulcer of left heel and midfoot with unspecified severity; B19.20 Unspecified viral hepatitis C without hepatic coma; D63.8 Anemia in other chronic diseases classified elsewhere; E87.6 Hypokalemia; F10.229 Alcohol dependence with intoxication, unspecified; N35.911 Unspecified urethral stricture, male, meatal; I27.20 Pulmonary hypertension, unspecified; M75.52 Bursitis of left shoulder; F60.0 Paranoid personality disorder; K26.9 Duodenal ulcer, unspecified as acute or chronic, without hemorrhage or perforation; M19.012 Primary osteoarthritis, left shoulder; B96.1 Klebsiella pneumoniae [K. pneumoniae] as the cause of diseases classified elsewhere; B96.20 Unspecified Escherichia coli [E. coli] as the cause of diseases classified elsewhere; S81.802A Unspecified open wound, left lower leg, initial encounter; S81.801A Unspecified open wound, right lower leg, initial encounter; X58.XXXA Exposure to other specified factors, initial encounter; B18.2 Chronic viral hepatitis C; I11.0 Hypertensive heart disease with heart failure; I70.0 Atherosclerosis of aorta; F17.210 Nicotine dependence, cigarettes, uncomplicated; K20.90 Esophagitis, unspecified without bleeding; K44.9 Diaphragmatic hernia without obstruction or gangrene; Z59.0 Homelessness; Z88.1 Allergy status to other antibiotic agents; Z91.14 Patient's other noncompliance with medication regimen; Z91.19 Patient's noncompliance with other medical treatment and regimen; Y93.89 Activity, other specified; Y92.89 Other specified places as the place of occurrence of the external cause; Y99.8 Other external cause status
CPT/HCPCS: 36415; 72190; 80048; 80053; 80076; 80202; 80320; 81003; 83605; 83735; 84100; 84145; 85025; 85651; 86038; 86140; 86430; 86431; 87040; 87070; 87077; 87186; 87205; 93005; 93922; 96374; 96375; 99285; G0378; J0295; J0696; J1170; J1650; J2405; J2543; J3370; J3411; A9575; G0480; J2060; J2270; J3475; J7030; J7040; J7050; J7120; J7512